=== PATIENT | male | born 1940 | race Caucasian/White ===

== ENCOUNTER → 2016-11-26 | Outpatient (CLI) | payer BC ==
[~2016-11-26] MED LIST: ACYC-57 PO; ASPI81TA28 PO; BENZ100C84 PO; CETI10TA84 PO; CRS/10 PO; DXM/4 PO; METO-479 PO; MISCCAP80 PO; PSYL55.43 PO
[2016-11-26 12:05] LABS: CHOLESTEROL/HDL RATIO 2.6
== END | disposition home or self-care (01) ==
LOC: C.LABSPEC 16:06
PROVIDERS: ATTEND Family Medicine
DX: E78.5 Hyperlipidemia, unspecified (principal); C90.00 Multiple myeloma not having achieved remission

== ENCOUNTER → 2017-08-23 | Outpatient (CLI) | payer BC ==
[~2017-08-23] MED LIST changes: -DXM/4 PO
--- NOTE | 2017-08-23 11:49 | DIAGNOSTIC IMAGING REPORT ---
CHEST 2 VIEWS ROUTINE CLINICAL HISTORY: 76 years-old Male presenting with C90.00 chest pain for 2 weeks with deep inspiration. TECHNIQUE: PA and lateral views of the chest were obtained. COMPARISON: 04/21/2016. FINDINGS: Atherosclerosis of aortic arch. Cardiac silhouette enlarged. Median sternotomy wires and prosthetic aortic valve noted with mediastinal surgical clips. Diffuse peripheral reticular lung markings. These are slightly more dense in the right upper lung. No large effusion or pneumothorax. Evidence of old left rib fractures, unchanged from prior. Osteopenia. Degenerative changes of the spine. Upper abdomen normal. IMPRESSION: 1. Chronic peripheral reticular lung markings likely indicate underlying chronic lung disease, including possible fibrosis. 2. Questionable superimposed infiltrate in the right upper lung versus progression of peripheral reticulation. Electronically signed by: Cesar Zamorano M.D. 08/23/2017 11:48 AM Dictated Date/Time: 08/23/2017 11:44 AM
== END | disposition home or self-care (01) ==
LOC: C.RAD 11:21
PROVIDERS: ATTEND Nurse Practitioner Family
DX: C90.00 Multiple myeloma not having achieved remission (principal)

== ENCOUNTER 2017-09-08 23:16 | Inpatient (IN) | payer BC, OTHER ==
[~2017-09-08] VITALS: Ht 180.3 cm; Wt 74.7 kg
[2017-09-08] MEDS ORDERED: SODIUM CHLORIDE 0.9% 1000ML 1,000 ML IV STA (23:51)
[2017-09-09 00:48] LABS: INR 1.1 (0.9-1.1); PTT PATIENT 23.5 SECONDS (21.0-31.0)
[2017-09-09 00:55] LABS: ALBUMIN 2.7 gm/dl (3.4-5.0); CALCIUM 8.2 mg/dl (8.5-10.1); CREATININE 0.87 mg/dl (0.60-1.40); POTASSIUM 3.3 mmol/L (3.5-5.1)
[2017-09-09 01:01] LABS: HEMATOCRIT 24.7 % (42-52); HEMOGLOBIN 8.2 g/dL (14.0-18.0); MEAN CELL VOLUME 98.8 fL (80-100); MEAN CORPUSCULAR HEMOGLOBIN 32.8 pg (25-34); MEAN CORPUSCULAR HGB CONC 33.2 g/dl (32-36); RED CELL DISTRIBUTION WIDTH CV 19.8 % (11.5-14.5); RED CELL DISTRIBUTION WIDTH SD 71.1 fL (36.4-46.3)
[2017-09-09 01:09] LABS: INFLUENZA A PCR Neg for Influ A (NEG); INFLUENZA B PCR Neg for Influ B (NEG)
[2017-09-09 01:11] LABS: PLATELET COUNT 17 K/uL (130-400)
[2017-09-09] MEDS ORDERED: CEFEPIME IV 2,000 MG in DEXTROSE 5% 100ML 100 ML IV STA (01:45)
[2017-09-09] MEDS ORDERED: POTASSIUM CHLORIDE 10 MEQ TABCR PO STA (02:05)
[2017-09-09] MEDS ORDERED: ZOLPIDEM TARTRATE 5 MG TAB PO PRN (02:15)
[2017-09-09] MEDS ORDERED: POLYETHYLENE (MIRALAX) 17 GM PACK PO PRN (02:15)
[2017-09-09] MEDS ORDERED: MAGNESIUM HYDROXIDE SUSP 30 ML UDC PO PRN (02:15)
[2017-09-09] MEDS ORDERED: ACETAMINOPHEN 325 MG TAB PO PRN (02:15)
[2017-09-09] MEDS ORDERED: ONDANSETRON INJ 2 MG/ML 2 ML VIAL IV PRN (02:15)
[2017-09-09] MEDS ORDERED: ALUMINUM/MAGNESIUM/SIMETH (MAALOX MAX) 30 ML UDC PO PRN (02:15)
[2017-09-09] MEDS ORDERED: CETIRIZINE HCL 10 MG TAB PO PRN (02:15)
[2017-09-09] MEDS ORDERED: MAGNESIUM SULFATE 1GM / D5W 1 GM BAG ONE (02:31)
[2017-09-09] MEDS: MAGNESIUM SULFATE 1GM / D5W 1 GM in PREMIXED IN D5W 100 ML IV SCH ×2 (02:34→04:01)
--- NOTE | 2017-09-09 02:47 | History and Physical ---
History & Physical Date & Time of Service: Sep 09, 2017 at 02:27 Chief Complaint: Fever, High Blood Pressure Primary Care Physician: Dustin Mendieta D.O. History of Present Illness Source: patient, spouse, hospital records 77 y/o M Hx multiple myeloma. He was previously on chemotherapy and last week began therapy with Darzalex. He presents with a fever and rigors which began earlier in the day. He does not have a cough, nausea, vomiting, diarrhea, dysuria or a headache. The pt's cell counts have been declining for several months. He recently required a platelet transfusion. Initial labs reveal pancytopenia with severe thrombocytopenia, moderate anemia and neutropenia. 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 [employer] - does not drink or smoke Smoking Status: Never Smoker Drug Use: none Marital Status: Housing status: lives with family Occupational Status: retired Immunizations History of Influenza Vaccine: Yes Influenza Vaccine Date: Aug 29, 2015 History of Tetanus Vaccine?: Yes Tetanus Immunization Date: Sep 08, 2011 History of Pneumococcal: Yes Pneumococcal Date: Jul 10, 2015 History of Hepatitis B Vaccine: No Allergies Coded Allergies: Dust (Verified Allergy, Intermediate, STUFFY NOSE,SNEEZING, 09/08/17) Home Medications Scheduled Acyclovir (Zovirax), 400 MG PO DAILY Metoprolol Succinate (Toprol Xl), 100 MG PO QPM Probiotic Product (Probiotic), 1 CAP PO Q2D Rosuvastatin Calcium (Crestor), 10 MG PO DAILY Scheduled PRN Cetirizine (Zyrtec), 10 MG PO DAILY PRN for ALLERGIC REACTION Review of Systems Constitutional: + fever, + chills, No sweats Eyes: No worsening of vision ENT: No hearing loss, No unusual epistaxis, No nasal symptoms Respiratory: No cough, No sputum, No wheezing Cardiovascular: No chest pain, No orthopnea, No PND Abdomen: No pain, No nausea, No vomiting Musculoskeletal: No joint pain Genitourinary - Male: No hematuria Neurologic: No memory loss, No paralysis, No weakness Endocrine: No fatigue Hematologic / Lymphatic: No abnormal bleeding/bruising Integumentary: No rash Allergic / Immunologic: No environmental allergies Physical Exam Vital Signs Date Time Temp Pulse Resp B/P (MAP) Pulse Ox O2 Delivery O2 Flow Rate FiO2 09/09/17 01:57 37.3 09/09/17 01:00 80 18 111/62 96 Room Air 09/09/17 00:30 87 24 112/62 97 Room Air 09/09/17 00:18 92 16 98/56 98 Room Air 09/09/17 00:18 98 Room Air 09/09/17 00:07 101 09/08/17 23:19 37.9 108 18 124/71 96 Room Air General Appearance: WD/WN, no apparent distress Head: normocephalic Eyes: normal inspection ENT: normal ENT inspection, pharynx normal Neck: supple, no JVD Respiratory/Chest: chest non-tender, normal breath sounds, + pertinent finding (Reduced air entry at L base) Cardiovascular: regular rate, rhythm, no edema, no gallop Abdomen/GI: normal bowel sounds, non tender, soft Back: normal inspection, no CVA tenderness Extremities/Musculoskelatal: normal inspection, no calf tenderness, normal capillary refill 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7 % Lymphocytes % (Manual) 9.3 % Neutrophils # (Manual) 2.27 1.4-6.5 K/uL Total Absolute Neutrophils 2.27 1.4-6.5 K/uL Lymphocytes # (Manual) 0.23 1.2-3.4 K/uL Total Absolute Lymphocytes 0.23 1.2-3.4 K/uL Platelet Estimate SIGNIFIC DECREASED Red Blood Cell Morphology Unremarkable Prothrombin Time 11.1 9.0-12.0 SECONDS Prothromb Time International Ratio 1.1 0.9-1.1 Activated Partial Thromboplast Time 23.5 21.0-31.0 SECONDS Partial Thromboplastin Ratio 0.9 Sodium Level 135 136-145 mmol/L Potassium Level 3.3 3.5-5.1 mmol/L Chloride Level 102 98-107 mmol/L Carbon Dioxide Level 27 21-32 mmol/L Anion Gap 6.0 3-11 mmol/L Blood Urea Nitrogen 21 7-18 mg/dl Creatinine 0.87 0.60-1.40 mg/dl Est Creatinine Clear Calc Drug Dose 74.6 ml/min Estimated GFR () 96.5 Estimated GFR (Non- 83.2 BUN/Creatinine Ratio 24.4 10-20 Random Glucose 99 70-99 mg/dl Calcium Level 8.2 8.5-10.1 mg/dl Magnesium Level 1.7 1.8-2.4 mg/dl Total Bilirubin 0.3 0.2-1 mg/dl Aspartate Amino Transf (AST/SGOT) 19 15-37 U/L Alanine Aminotransferase (ALT/SGPT) 50 12-78 U/L Alkaline Phosphatase 57 45-117 U/L Troponin I 0.018 0-0.045 ng/ml Total Protein 8.0 6.4-8.2 gm/dl Albumin 2.7 3.4-5.0 gm/dl Globulin 5.3 2.5-4.0 gm/dl Albumin/Globulin Ratio 0.5 0.9-2 Procalcitonin 6.52 0-0.5 ng/ml Thyroid Stimulating Hormone (TSH) 1.100 0.300-4.500 uIu/ml Urine Color YELLOW Urine Appearance CLEAR CLEAR Urine pH 6.0 4.5-7.5 Urine Specific [place] 1.027 1.000-1.030 Urine Protein 1+ NEG Urine Glucose (UA) NEG NEG Urine Ketones NEG NEG Urine Occult Blood TRACE NEG Urine Nitrite NEG NEG Urine Bilirubin NEG NEG Urine Urobilinogen NEG NEG Urine Leukocyte Esterase NEG NEG Urine WBC (Auto) 1-5 0-5 /hpf Urine RBC (Auto) 0-4 0-4 /hpf Urine Hyaline Casts (Auto) 1-5 0-5 /lpf Urine Epithelial Cells (Auto) 5-10 0-5 /lpf Urine Bacteria (Auto) NEG NEG Influenza Type A (RT-PCR) Neg for Influ A NEG Influenza Type B (RT-PCR) Neg for Influ B NEG Bedside Troponin I < 0.030 0-0.045 ng/ml Bedside Lactic Acid Venous 0.61 0.90-1.70 mmol/L Microbiology Results 09/09/17 Blood Culture, Received Pending 09/08/17 Blood Culture, Received Pending Diagnostic Radiology NO clear infiltrates on CXR - increased interstitial markings Impression Assessment and Plan 77 y/o M Hx multiple myeloma. He was previously on chemotherapy and last week began therapy with Darzalex. He presents with a fever and rigors which began earlier in the day. He does not have a cough, nausea, vomiting, diarrhea, dysuria or a headache. The pt's cell counts have been declining for several months. He recently required a platelet transfusion. Initial labs reveal pancytopenia with severe thrombocytopenia, moderate anemia and neutropenia. 1) Fever with neutropenia - currently receiving immune therapy - pt placed on Cefepime in ER. This is a reasonable first choice as there is no obvious source of infection and he does not have a port line. We will provide a dose of Vanc pending culture results however, as he has a history of valve replacement and a systolic murmur. 2) Pancytopenia - recently required a platelet transfusion. May require RBCs and platelets and has been consented. It is noted that special precautions are needed prior to transfusion for pt's receiving Darzalex. We have consulted oncology. A repeat CBC is pending for 8a. The pt's cell count was declining prior to initiation of Darzalex and Darzalex use itself can lead to pancytopenia. It is unclear if the medication will ultimately be helpful or if it now needs to be discontinued. Again, a hematology consult is pending. 3) HTN - cont Toprol 4) HPL - cont Crestor Full code - anticoagulation contraindicated currently Total time for this admit including review of labs, meds, imaging, records - discussion with pt and ER attending - 40 min Resuscitation Status VTE Prophylaxis Will order VTE Prophylaxis: No Reason for no VTE drug order: Contraindicated Reason no Mechanical VTE Order: Contraindicated
[2017-09-09] MEDS ORDERED: VANCOMYCIN CONSULT ACTIVE PRN (03:00)
[2017-09-09] MEDS: POTASSIUM CHLR 10 MEQ / WTR 10 MEQ in PREMIXED WATER 100 ML IV SCH ×2 (03:05→04:01)
[2017-09-09] MEDS ORDERED: VANCOMYCIN INJ 1,750 MG in SODIUM CHLORIDE 0.9% 500ML 500 ML IV STA (03:12)
--- NOTE | 2017-09-09 03:41 | EMERGENCY ROOM VISIT NOTE ---
History First contact with patient: 23:37 Chief Complaint: FEVER Stated Complaint: FEVER, HIGH BLOOD PRESSURE History of Present Illness The patient is a 77 year old male who presents to the Emergency Room with complaints of fever for the past day of 102. Patient has multiple myeloma and is currently receiving Darzalex IV. His first dose was 5 days ago. He received one on Saturday and on . His regimen will be once weekly. He required a blood transfusion 3 weeks ago. His platelets have been running low and last week they were 32,000. Patient complains of occasional cough. Patient denies chest pain, dyspnea, productive cough, abdominal pain, headache, sore throat, allergies, arthralgias, nausea, vomiting, diarrhea, urinary symptoms, back pain. He did receive the flu vaccine. No recent travel. Dr. Mullen is his oncologist. Review of Systems An 10 system review of systems was completed with positives and pertinent negatives listed in the HPI. Past Medical/Surgical History Medical Problems: (1) Aortic stenosis (2) Caridac stress test (3) Diarrhea (4) Diverticulosis Colon (W/O Ment Of Hemorrhage) (5) Esophagitis (6) Febrile illness, acute (7) Fleeting tachycardia (8) Hyperlipidemia Nec/Nos (9) Hypertension Nos (10) Multiple myeloma (11) Neutropenic fever (12) NSTEMI (non-ST elevated myocardial infarction) (13) Pancytopenia Family History FH: heart disease Social History Smoking Status: Never Smoker Alcohol Use: occasionally Drug Use: none Marital Status: Housing Status: lives with significant other Occupation Status: retired Current/Historical Medications Scheduled Acyclovir (Zovirax), 400 MG PO DAILY Metoprolol Succinate (Toprol Xl), 100 MG PO QPM Probiotic Product (Probiotic), 1 CAP PO Q2D Rosuvastatin Calcium (Crestor), 10 MG PO DAILY Scheduled PRN Cetirizine (Zyrtec), 10 MG PO DAILY PRN for ALLERGIC REACTION Physical Exam Vital Signs Date Time Temp Pulse Resp B/P (MAP) Pulse Ox O2 Delivery O2 Flow Rate FiO2 09/09/17 03:00 78 18 103/61 95 Room Air 09/09/17 02:30 90 17 123/72 97 Room Air 09/09/17 02:00 88 21 109/68 97 Room Air 09/09/17 01:57 37.3 09/09/17 01:30 89 20 112/67 96 Room Air 09/09/17 01:00 80 18 111/62 96 Room Air 09/09/17 00:30 87 24 112/62 97 Room Air 09/09/17 00:18 92 16 98/56 98 Room Air 09/09/17 00:18 98 Room Air 09/09/17 00:07 101 09/08/17 23:19 37.9 108 18 124/71 96 Room Air Physical Exam VITALS: Vitals are noted on the nurse's note and reviewed by myself. Vital signs low-grade fever. GENERAL: Pleasant male, in no acute distress, nondiaphoretic, well-developed well-nourished. SKIN: The skin was without rashes, erythema, edema, or bruising. There is no tenting of the skin. Capillary reflex less than 2 seconds. HEAD: Normocephalic atraumatic. EARS: External auditory canals clear, tympanic membranes pearly mitchell without erythema or effusion bilaterally. EYES: Pupils equal round and reactive to light and accommodation. Conjunctivae without injection, sclerae without icterus. Extraocular movements intact. NOSE: Patent, turbinates without inflammation or discharge. No sinus tenderness. MOUTH: Mucous membranes mildly dry. Pharynx without erythema or exudate. Uvula midline. Airway patent. Tongue does not deviate. NECK: Supple without nuchal rigidity. No lymphadenopathy. No thyromegaly. Cervical spine is nontender. No JVD. HEART: Regular rate and rhythm 2/6 systolic murmur LUNGS: Clear to auscultation bilaterally without wheezes, rales or rhonchi. No retractions or accessory muscle use. ABDOMEN: Positive bowel sounds x 4. Normal tympanic percussion. Soft, nontender, without masses or organomegaly. Parra sign negative. No guarding or rebound tenderness. No CVA tenderness MUSCULOSKELETAL: No muscle atrophy, erythema, or edema noted. NEURO: Patient was alert and oriented to person place and time. Normal sensation to light and sharp touch. No focal neurological deficits. Medical Decision & Procedures Laboratory Results 09/08/17 23:58 Red Blood Count 2.50, Mean Corpuscular Volume 98.8, Mean Corpuscular Hemoglobin 32.8, Mean Corpuscular Hemoglobin Concent 33.2 09/08/17 23:58 Test 09/08/17 23:58 09/09/17 00:04 09/09/17 00:11 09/09/17 00:12 White Blood Count 2.50 K/uL (4.8-10.8) Red Blood Count 2.50 M/uL (4.7-6.1) Hemoglobin 8.2 g/dL (14.0-18.0) Hematocrit 24.7 % (42-52) Mean Corpuscular Volume 98.8 fL (80-100) Mean Corpuscular Hemoglobin 32.8 pg (25-34) Mean Corpuscular Hemoglobin Concent 33.2 g/dl (32-36) Platelet Count 17 K/uL (130-400) RDW Standard Deviation 71.1 fL (36.4-46.3) RDW Coefficient of Variation 19.8 % (11.5-14.5) Neutrophils % (Manual) 90.7 % Lymphocytes % (Manual) 9.3 % Neutrophils # (Manual) 2.27 K/uL (1.4-6.5) Total Absolute Neutrophils 2.27 K/uL (1.4-6.5) Lymphocytes # (Manual) 0.23 K/uL (1.2-3.4) Total Absolute Lymphocytes 0.23 K/uL (1.2-3.4) Platelet Estimate SIGNIFIC DECREASED Red Blood Cell Morphology Unremarkable Prothrombin Time 11.1 SECONDS (9.0-12.0) Prothromb Time International Ratio 1.1 (0.9-1.1) Activated Partial Thromboplast Time 23.5 SECONDS (21.0-31.0) Partial Thromboplastin Ratio 0.9 Anion Gap 6.0 mmol/L (3-11) Est Creatinine Clear Calc Drug Dose 74.6 ml/min Estimated GFR () 96.5 Estimated GFR (Non- 83.2 BUN/Creatinine Ratio 24.4 (10-20) Calcium Level 8.2 mg/dl (8.5-10.1) Magnesium Level 1.7 mg/dl (1.8-2.4) Total Bilirubin 0.3 mg/dl (0.2-1) Aspartate Amino Transf (AST/SGOT) 19 U/L (15-37) Alanine Aminotransferase (ALT/SGPT) 50 U/L (12-78) Alkaline Phosphatase 57 U/L (45-117) Troponin I 0.018 ng/ml (0-0.045) Total Protein 8.0 gm/dl (6.4-8.2) Albumin 2.7 gm/dl (3.4-5.0) Globulin 5.3 gm/dl (2.5-4.0) Albumin/Globulin Ratio 0.5 (0.9-2) Procalcitonin 6.52 ng/ml (0-0.5) Thyroid Stimulating Hormone (TSH) 1.100 uIu/ml (0.300-4.500) Urine Color YELLOW Urine Appearance CLEAR (CLEAR) Urine pH 6.0 (4.5-7.5) Urine Specific [place] 1.027 (1.000-1.030) Urine Protein 1+ (NEG) Urine Glucose (UA) NEG (NEG) Urine Ketones NEG (NEG) Urine Occult Blood TRACE (NEG) Urine Nitrite NEG (NEG) Urine Bilirubin NEG (NEG) Urine Urobilinogen NEG (NEG) Urine Leukocyte Esterase NEG (NEG) Urine WBC (Auto) 1-5 /hpf (0-5) Urine RBC (Auto) 0-4 /hpf (0-4) Urine Hyaline Casts (Auto) 1-5 /lpf (0-5) Urine Epithelial Cells (Auto) 5-10 /lpf (0-5) Urine Bacteria (Auto) NEG (NEG) Influenza Type A (RT-PCR) Neg for Influ A (NEG) Influenza Type B (RT-PCR) Neg for Influ B (NEG) Bedside Troponin I < 0.030 ng/ml (0-0.045) Bedside Lactic Acid Venous 0.61 mmol/L (0.90-1.70) Medications Administered Medications (Trade) Dose Ordered Sig/Cristian Route Start Time Stop Time Status Last Admin Dose Admin Sodium Chloride 1,000 ml @ 999 mls/hr Q1H1M STAT IV 09/08/17 23:51 09/09/17 00:51 DC 09/09/17 00:18 999 MLS/HR Cefepime HCl 2000 mg/Dextrose 122 ml @ 200 mls/hr NOW STAT IV 09/09/17 01:45 09/09/17 02:21 DC 09/09/17 02:11 200 MLS/HR Potassium Chloride 10 meq/ Prmx 100 ml @ 100 mls/hr Q1H IV 09/09/17 03:00 09/09/17 04:59 3/5/18 03:05 100 MLS/HR Potassium Chloride (Klor-Con M10) 20 meq NOW STAT PO 09/09/17 02:05 09/09/17 02:24 DC 09/09/17 02:33 20 MEQ Magnesium Sulfate 1 gm/Prmx 100 ml @ 100 mls/hr Q1H IV 09/09/17 02:30 09/09/17 04:29 09/09/17 02:34 100 MLS/HR ED Course Prior records/ancillary studies reviewed. Triage Nursing notes reviewed. Additional history obtained from family. The patient's history was concerning for fever. Differential diagnosis: Etiologies such as neutropenic fever, viral syndrome, otitis, pharyngitis, pneumonia, influenza, meningitis, urinary tract infection, sepsis, bacteremia, as well as others were entertained. Physical examination: Patient is alert, oriented tolerating fluids ER treatment provided: IV fluids, cefepime, neutropenic precautions On reassessment the patient felt better. Diagnostics interpreted by me: ECG: Normal sinus, normal intervals, minimal ST depression in the lateral leads , incomplete right bundle branch block, rate of 96, EKG compared to prior EKG with no acute changes noted. Impression normal sinus rhythm with an incomplete right bundle branch block with unchanged minimal ST depression in lateral leads interpreted by myself The labs revealed pancytopenic. Lower platelets and H&H from chart review Negative lactic acid Elevated pro-calcitonin level, blood cultures pending Negative influenza Imaging studies: Chest x-ray with no acute consolidation, pneumothorax or free of my interpretation Consultation: A consultation was placed with Dr. Lombardo, oncology. The case was discussed and diagnostics were reviewed. He recommends antibiotics and admission Pending blood cultures. The hospitalist was consulted, Dr. Sylvester and will evaluate the patient. The patient was evaluated in the ER for further treatment. This appears to be consistent with fever in a cancer patient. Patient was not neutropenic. His blood counts were all lower than baseline though. No obvious source of infection. Blood cultures pending. He had an elevated pro- calcitonin. He had a negative lactic acid. He was started on antibiotics and hydrated as above. He took Tylenol just prior to arrival.. By the evaluation outlined above emergent etiologies such as otitis, pharyngitis, pneumonia, meningitis, urinary tract infection, as well as others were deemed relatively unlikely. The pt informed about the findings as listed above. All questions were answered and pleased with the treatment. Case reviewed with my attending The chart was completed utilizing [employer] Speech voice recognition software. Grammatical errors, random word insertions, pronoun errors, and incomplete sentences are an occassional consequence of this system due to software limitations, ambient noise, and hardware issues. Any formal questions or concerns about the content, text, or information contained within the body of this dictation should be directly addressed to the physician lpn or medical assistant for clarification. Medical Decision As above Medication Reconcilliation Current Medication List: was personally reviewed by me Blood Pressure Screening Patient's blood pressure: Normal blood pressure Impression Primary Impression: Fever Additional Impression: Pancytopenia Departure Information Dispostion Being Evaluated By Hospitalist Condition FAIR Referrals Dustin Mendieta D.OYoni (PCP) Patient Instructions My [facility] Problem Qualifiers Primary Impression: Fever Fever type: unspecified Qualified Codes: R50.9 - Fever, unspecified
[2017-09-09 04:38] VITALS: BP 136/73; PULSE 85; TEMP 37; Ht 180.3 cm; Wt 74.7 kg
[2017-09-09 05:01] VITALS: O2SAT 97
[2017-09-09] MEDS ORDERED: CEFEPIME CONSULT ACTIVE PRN (05:15)
--- NOTE | 2017-09-09 06:37 | DIAGNOSTIC IMAGING REPORT ---
CHEST ONE VIEW PORTABLE CLINICAL HISTORY: Sepsis COMPARISON STUDY: August 23, 2017 FINDINGS: There are postsurgical changes of a midline sternotomy. The cardiac and mediastinal contours remain stable. There are old left-sided rib deformities. Bilateral reticulonodular opacities remain similar, and are suggestive of underlying interstitial lung disease. There are no pleural effusions.[ IMPRESSION: Underlying interstitial lung disease similar to the preceding study. No acute findings Electronically signed by: Christopher Dias M.D. 09/09/2017 6:35 AM Dictated Date/Time: 09/09/2017 6:34 AM
[2017-09-09 08:12] VITALS: BP 135/79; PULSE 93; TEMP 37.4; O2SAT 97
[2017-09-09 08:30] VITALS: O2SAT 97
[2017-09-09 08:32] LABS: HEMATOCRIT 24.5 % (42-52); HEMOGLOBIN 8.1 g/dL (14.0-18.0); MEAN CELL VOLUME 99.6 fL (80-100); MEAN CORPUSCULAR HEMOGLOBIN 32.9 pg (25-34); MEAN CORPUSCULAR HGB CONC 33.1 g/dl (32-36); NUCLEATED RED BLOOD CELL ABS 0.02 K/uL (0-0); RED CELL DISTRIBUTION WIDTH CV 19.9 % (11.5-14.5); RED CELL DISTRIBUTION WIDTH SD 72.3 fL (36.4-46.3); WHITE BLOOD COUNT 2.17 K/uL (4.8-10.8)
[2017-09-09 08:43] LABS: PLATELET COUNT 17 K/uL (130-400)
[2017-09-09 08:44] LABS: CREATININE 0.74 mg/dl (0.60-1.40)
[2017-09-09] MEDS ORDERED: NURSING VERBAL MED ORDER ONE (08:45)
[2017-09-09] MEDS ORDERED: ACYCLOVIR 200 MG CAP PO SCH (09:00)
[2017-09-09] MEDS ORDERED: ROSUVASTATIN CALCIUM 10 MG TAB PO SCH (09:00)
[2017-09-09] MEDS ORDERED: METOPROLOL SUCC 50MG EXT REL TAB PO SCH ×2 (09:00→21:00)
--- NOTE | 2017-09-09 09:02 | ONCOLOGY CONSULTATION ---
DATE OF CONSULTATION: 09/09/2017 REASON FOR CONSULTATION: Fever. HISTORY OF PRESENT ILLNESS: Mr. Chan is a pleasant 77-year-old gentleman well known to [facility], currently under Dr. 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 Mr. Chan was recently started on a daratumumab, which is a new novel monoclonal antibody for refractory multiple myeloma, last received on and Saturday of last week. He tolerated the infusion relatively well here. Overnight prior to admission, he developed a fever of 102.5 and proceeded directly to the Emergency Room. There were no other constituted symptoms or clinical findings. Discussed the case with the ER physician because he was neutropenic, thought it was best to wilcox culture him and place him on empiric cefepime. He is feeling much better and fever has abated. I suspect his symptoms may be related to the Daratumumab. PAST MEDICAL HISTORY: Again, significant for multiple myeloma, hypertension, hyperlipidemia and aortic stenosis. HOME MEDICATIONS: Include acyclovir 400 mg p.o. q. daily, metoprolol 100 mg p.o. q.p.m., probiotic 1 capsule p.o. every other day and Crestor 10 mg p.o. q. daily. ALLERGIES: DUST. SOCIAL HISTORY: The patient is retired, and lives with his . Nonsmoker and nondrinker. FAMILY HISTORY: Significant for heart disease. REVIEW OF SYSTEMS: CONSTITUTIONAL: Most notably for a low grade fever. No chills or sweats. His appetite is robust. SKIN: No rashes or lesions. No history of dermatoses. HEENT: Negative for headaches, lightheadedness or dizziness. No acute visual or hearing deficits. No sinus symptoms, sore throat or dysphagia. LYMPHATICS: No history of lymphadenopathy. CARDIAC: No current angina or palpitations. PULMONARY: He is not short of breath, dyspneic or orthopneic. No cough or hemoptysis. GASTROINTESTINAL: Negative for abdominal pain, nausea, vomiting, diarrhea or constipation, hematochezia or melenic stools. GENITOURINARY: No hematuria, dysuria, or urinary incontinence. PSYCHIATRIC: Negative for anxiety, depression or psychoses by history. ENDOCRINE: Negative for diabetes or thyroid disease. NEUROLOGIC: Negative for seizure, stroke, or migraine headache. HEMATOLOGIC: Positive for cytopenias associated with treatment and his disease. PHYSICAL EXAMINATION: GENERAL: Very pleasant 77-year-old gentleman in no acute distress. VITAL SIGNS: Temperature 37.4, pulse 93, respirations 18, and blood pressure 135/79. SKIN: Warm, dry, and noncyanotic without petechia, rash or ecchymosis. HEENT: Head is atraumatic and normocephalic. Eyes: PERRLA and EOMI. Sclerae nonicteric. No conjunctival injection. Nares patent without rhinorrhea or discharge. Throat is clear. Tongue is midline. Mucous membranes are moist. NECK: Supple without JVD or thyromegaly. LYMPHATICS: No cervical, supraclavicular, axillary or inguinal palpable nodes. HEART: Regular rate and rhythm. No clicks, rubs, murmurs or gallops. LUNGS: Clear to auscultation bilaterally. ABDOMEN: Soft, nontender, and nondistended without palpable hepatosplenomegaly. EXTREMITIES: No calf tenderness or swelling. No clubbing, cyanosis or edema. NEUROLOGICALLY: He is awake, alert and oriented x3. Cranial nerves II-XII are intact. No gross motor or sensory deficits are noted. LABORATORY DATA: On admission, WBC count 2500, hemoglobin 8.2, and platelet count 17,000. Sodium 135, potassium 3.3, chloride 102, carbon dioxide 27, BUN 21, and creatinine 0.87. Albumin slightly decreased to 2.7. Magnesium decreased to 1.7. IMPRESSION: 1. Fever. 2. Cytopenias attributable to treatment. 3. Hypoalbuminemia. 4. Electrolyte dysfunction. PLAN: I had the pleasure of meeting Mr. Chan and his at bedside today. Apparently, he developed a fever of 102 overnight. He presented to the [facility] Emergency Room and I personally spoke to the ER physician. He presented with no other constitutive symptoms and upon review of adverse effects associated with daratumumab, it would appear cytopenias and fever are all common adverse reactions associated with this drug. Therefore, would proceed with correcting his electrolyte abnormalities and if cultures are negative, discharge him home as he will follow up with Dr. Mullen later on this week to resume treatment. His platelet count is tenuous. If he is discharged in the next 24 hours, would have a CBC performed in the next day or two and transfuse single donor platelets as appropriate. Perhaps he may require a couple units of packed RBCs as well. I have nothing further to add at this juncture. Thank you for assisting us in the care of this very pleasant gentleman. SANDEE
--- NOTE | 2017-09-09 09:04 | Pharmacy Progress Note ---
Pharmacy Antibiotic Consult Date of Service: Sep 09, 2017. Pharmacy Dosing Scope Pharmacy is consulted to initiate vancomycin and cefepime IV dosing therapy, order appropriate labs and adjust drug dose/frequency. Subjective The patient is a 77 year old male admitted on Sep 09, 2017 at 02:15 with febrile neutropenia. History of multiple myeloma, chemotherapy. Objective Height (Feet): 5 Height (Inches): 11.00 Weight (Kilograms): 74.700 Lab Results (24hrs): Test 09/08/17 23:58 09/09/17 00:04 09/09/17 00:11 09/09/17 00:12 White Blood Count 2.50 K/uL (4.8-10.8) Red Blood Count 2.50 M/uL (4.7-6.1) Hemoglobin 8.2 g/dL (14.0-18.0) Hematocrit 24.7 % (42-52) Mean Corpuscular Volume 98.8 fL (80-100) Mean Corpuscular Hemoglobin 32.8 pg (25-34) Mean Corpuscular Hemoglobin Concent 33.2 g/dl (32-36) Platelet Count 17 K/uL (130-400) RDW Standard Deviation 71.1 fL (36.4-46.3) RDW Coefficient of Variation 19.8 % (11.5-14.5) Neutrophils % (Manual) 90.7 % Lymphocytes % (Manual) 9.3 % Neutrophils # (Manual) 2.27 K/uL (1.4-6.5) Total Absolute Neutrophils 2.27 K/uL (1.4-6.5) Lymphocytes # (Manual) 0.23 K/uL (1.2-3.4) Total Absolute Lymphocytes 0.23 K/uL (1.2-3.4) Platelet Estimate SIGNIFIC DECREASED Red Blood Cell Morphology Unremarkable Prothrombin Time 11.1 SECONDS (9.0-12.0) Prothromb Time International Ratio 1.1 (0.9-1.1) Activated Partial Thromboplast Time 23.5 SECONDS (21.0-31.0) Partial Thromboplastin Ratio 0.9 Sodium Level 135 mmol/L (136-145) Potassium Level 3.3 mmol/L (3.5-5.1) Chloride Level 102 mmol/L (98-107) Carbon Dioxide Level 27 mmol/L (21-32) Anion Gap 6.0 mmol/L (3-11) Blood Urea Nitrogen 21 mg/dl (7-18) Creatinine 0.87 mg/dl (0.60-1.40) Est Creatinine Clear Calc Drug Dose 74.6 ml/min Estimated GFR () 96.5 Estimated GFR (Non- 83.2 BUN/Creatinine Ratio 24.4 (10-20) Random Glucose 99 mg/dl (70-99) Calcium Level 8.2 mg/dl (8.5-10.1) Magnesium Level 1.7 mg/dl (1.8-2.4) Total Bilirubin 0.3 mg/dl (0.2-1) Aspartate Amino Transf (AST/SGOT) 19 U/L (15-37) Alanine Aminotransferase (ALT/SGPT) 50 U/L (12-78) Alkaline Phosphatase 57 U/L (45-117) Troponin I 0.018 ng/ml (0-0.045) Total Protein 8.0 gm/dl (6.4-8.2) Albumin 2.7 gm/dl (3.4-5.0) Globulin 5.3 gm/dl (2.5-4.0) Albumin/Globulin Ratio 0.5 (0.9-2) Procalcitonin 6.52 ng/ml (0-0.5) Thyroid Stimulating Hormone (TSH) 1.100 uIu/ml (0.300-4.500) Urine Color YELLOW Urine Appearance CLEAR (CLEAR) Urine pH 6.0 (4.5-7.5) Urine Specific [place] 1.027 (1.000-1.030) Urine Protein 1+ (NEG) Urine Glucose (UA) NEG (NEG) Urine Ketones NEG (NEG) Urine Occult Blood TRACE (NEG) Urine Nitrite NEG (NEG) Urine Bilirubin NEG (NEG) Urine Urobilinogen NEG (NEG) Urine Leukocyte Esterase NEG (NEG) Urine WBC (Auto) 1-5 /hpf (0-5) Urine RBC (Auto) 0-4 /hpf (0-4) Urine Hyaline Casts (Auto) 1-5 /lpf (0-5) Urine Epithelial Cells (Auto) 5-10 /lpf (0-5) Urine Bacteria (Auto) NEG (NEG) Influenza Type A (RT-PCR) Neg for Influ A (NEG) Influenza Type B (RT-PCR) Neg for Influ B (NEG) Bedside Troponin I < 0.030 ng/ml (0-0.045) Bedside Lactic Acid Venous 0.61 mmol/L (0.90-1.70) Test 09/09/17 08:01 White Blood Count 2.17 K/uL (4.8-10.8) Red Blood Count 2.46 M/uL (4.7-6.1) Hemoglobin 8.1 g/dL (14.0-18.0) Hematocrit 24.5 % (42-52) Mean Corpuscular Volume 99.6 fL (80-100) Mean Corpuscular Hemoglobin 32.9 pg (25-34) Mean Corpuscular Hemoglobin Concent 33.1 g/dl (32-36) RDW Standard Deviation 72.3 fL (36.4-46.3) RDW Coefficient of Variation 19.9 % (11.5-14.5) Platelet Count 17 K/uL (130-400) Nucleated RBC Absolute Count (auto) 0.02 K/uL (0-0) Nucleated Red Blood Cells % 0.9 % Platelet Estimate SIGNIFIC DECREASED Sodium Level 135 mmol/L (136-145) Potassium Level 4.0 mmol/L (3.5-5.1) Chloride Level 104 mmol/L (98-107) Carbon Dioxide Level 28 mmol/L (21-32) Anion Gap 3.0 mmol/L (3-11) Blood Urea Nitrogen 16 mg/dl (7-18) Creatinine 0.74 mg/dl (0.60-1.40) Est Creatinine Clear Calc Drug Dose 88.3 ml/min Estimated GFR () 103.1 Estimated GFR (Non- 89.0 BUN/Creatinine Ratio 21.0 (10-20) Random Glucose 90 mg/dl (70-99) Calcium Level 8.0 mg/dl (8.5-10.1) Magnesium Level 2.1 mg/dl (1.8-2.4) Micro Results: 09/09 blood x2 pending Recent Pertinent Medications Item Value Date Time Vancomycin HCl 275 ml @ 125 mls/hr 09/09/17 1800 1250 mg/Sodium Q14H/IV Chloride Cefepime HCl 2000 20 ml @ 5 mls/min 09/09/17 1000 mg/Syringe Q8H/IV Acyclovir 400 mg 09/09/17 0900 (Zovirax Cap) DAILY/PO 09/09/17 0831 Vancomycin HCl 535 ml @ 200 mls/hr 09/09/17 0312 1750 mg/Sodium NOW STAT/IV 09/09/17 0519 Chloride Cefepime HCl 2000 122 ml @ 200 mls/hr 09/09/17 0145 mg/Dextrose NOW STAT/IV 09/09/17 0211 Assessment & Plan Loading dose: vancomycin 1750 mg IV X 1 dose (~23 mg/kg) then will dose fairly aggressively for neutropenia: vancomycin 1250 mg IV every 14 hours. Goal peak level estimate: between 30-40 mcg/mL. Goal trough level estimate: between 15-20 mcg/mL. Trough has been ordered for: 09/10/17 before 2200 dose. Cefepime 2 Gm V q8h, no adjustment needed for CrCl greater than 60 ml/min. Pharmacy will continue to follow and will adjust dose/frequency as necessary. Thank you
[2017-09-09] MEDS ORDERED: CEFEPIME IV 2,000 MG in SYRINGE 7.5 ML IV SCH (10:00)
--- NOTE | 2017-09-09 11:11 | Discharge Instructions ---
Discharge Instructions Date of Service Sep 09, 2017. Admission Reason for Admission: Neutropenic Fever, Pancytopenia, Multiple Myeloma Discharge Discharge Diagnosis / Problem: Neutropenic fever, pancytopenia Discharge Goals Goal(s): Improve function, Diagnostic testing (follow blood counts) Activity Recommendations Activity Limitations: resume your previous activity . Instructions / Follow-Up Instructions / Follow-Up Medications: no changes Leukopenia (low WBC): not truly neutropenic, ANC was 2.27 fevers resolved blood cultures still pending, will notify you if anything grows no pneumonia on chest x-ray and urine clean Low platelets: no bruising, no bleeding you need to follow this closely, will give you scripts for tomorrow and Saturday morning results to Dr. Mullen, he will give further instructions, you may need platelet transfusion in near future Anemia: Hb was 8.2 yesterday, 8.1 today, certainly a result of both multiple myeloma and possibly treatment follow closely over next two days, may require red blood cell transfusion in near future FOLLOW UP - Dr. Mullen's office on Saturday Current Hospital Diet Patient's current hospital diet: Regular Diet Discharge Diet Recommended Diet: Regular Diet Pending Studies Studies pending at discharge: yes List of pending studies: blood cultures Medical Emergencies . Who to Call and When: Medical Emergencies: If at any time you feel your situation is an emergency, please call 911 immediately. . Non-Emergent Contact Non-Emergency issues call your: Primary Care Provider, Oncologist Call Non-Emergent contact if: you have a fever, you have any medication questions . . "Provider Documentation" section prepared by Brady Escobar. . [place] Drug Monitoring Program Search Results: no issues identified
[2017-09-09 11:33] VITALS: BP 100/62; PULSE 77; TEMP 37.7; O2SAT 96
[2017-09-09 12:12] VITALS: BP 100/62; PULSE 77; TEMP 37.7; O2SAT 96
[2017-09-09] MEDS ORDERED: VANCOMYCIN INJ 1,250 MG in SODIUM CHLORIDE 0.9% 250ML 250 ML IV SCH (18:00)
[2017-09-10] MEDS ORDERED: VANCOMYCIN TROUGH ONE (21:30)
--- NOTE | 2017-09-11 08:22 | Discharge Summary ---
Discharge Summary Date of Service Sep 09, 2017. Discharge Summary Admission Date: Sep 09, 2017 at 02:15 Discharge Date: Sep 09, 2017 Principal Diagnosis: Pancytopenia, no neutropenia, with fever Problems/Secondary Diagnoses: Thrombocytopenia Anemia Multiple Myeloma Immunizations: Have You Had Influenza Vaccine: Yes Influenza Vaccine Date: Aug 29, 2015 History of Tetanus Vaccine?: Yes Tetanus Immunization Date: Sep 08, 2011 History of Pneumococcal: Yes Pneumococcal Date: Jul 10, 2015 History of Hepatitis B Vaccine: No Procedures: none Consultations: Oncology Medication Reconciliation Continued Medications: Acyclovir (Zovirax) 200 Mg Cap 400 MG PO DAILY, CAP Cetirizine (Zyrtec) 10 Mg Tab 10 MG PO DAILY PRN for ALLERGIC REACTION, TAB Metoprolol Succinate (Toprol Xl) 100 Mg Tab 100 MG PO QPM Probiotic Product (Probiotic) 1 Cap Cap 1 CAP PO Q2D Rosuvastatin Calcium (Crestor) 10 Mg Tab 10 MG PO DAILY, TAB Discharge Exam Patient feeling well, no fevers, eating well, breathing stable. patient wanted to go home and said he would follow up for labs with oncology. Patient's at the bedside, she agreed with this plan. Review of Systems: Constitutional: + fever (prior to admission), No chills, No sweats, No weight loss, No weakness, No fatigue, No problem reported Eyes: No worsening of vision, No eye pain, No redness, No discharge, No diplopia, No problem reported ENT: No hearing loss, No unusual epistaxis, No nasal symptoms, No sore throat, No tinnitus, No dental problems, No trouble swallowing, No problem reported Respiratory: No cough, No sputum, No wheezing, No shortness of breath, No dyspnea on exertion, No dyspnea at rest, No hemoptysis, No problem reported Cardiovascular: No chest pain, No orthopnea, No PND, No edema, No claudication, No palpitations, No problem reported Abdomen: No pain, No nausea, No vomiting, No diarrhea, No constipation, No GI bleeding, No problem reported Musculoskeletal: No joint pain, No muscle pain, No swelling, No calf pain, No problem reported Genitourinary - Male: No hematuria, No dysuria, No urinary frequency, No urinary urgency Neurologic: No memory loss, No paralysis, No weakness, No numbness/tingling , No vertigo, No balance problems, No problem reported Psychiatric: No depression symptoms, No anhedonism, No anxiety, No insomnia , No substance abuse, No problem reported Endocrine: No fatigue, No excessive thirst, No excessive urination, No problem reported Hematologic / Lymphatic: No abnormal bleeding/bruising, No clotting problems , No swollen lymph nodes, No night sweats, No problem reported Integumentary: No rash, No itch, No new/changing skin lesions, No color change, No bleeding, No problem reported Physical Exam: General Appearance: WD/WN, no apparent distress Eyes: normal inspection, EOMI, sclerae normal ENT: normal ENT inspection, hearing grossly normal, pharynx normal Neck: supple, no adenopathy, no JVD, trachea midline Respiratory/Chest: chest non-tender, lungs clear, normal breath sounds, no respiratory distress, no accessory muscle use Cardiovascular: regular rate, rhythm, no edema, no gallop, no JVD, no murmur , normal peripheral pulses Abdomen / GI: normal bowel sounds, non tender, soft, no organomegaly Extremities: normal inspection, no calf tenderness, normal capillary refill , no pedal edema, normal range of motion, pelvis stable Neurologic/Psychiatric: company dancer II-XII nml as tested, no motor/sensory deficits , alert, normal mood/affect, normal reflexes, oriented x 3 Skin: normal color, warm/dry, no rash Lymphatic: no adenopathy Hospital Course 1) Fever with leukopenia, not neutropenia - afebrile since admission, given dose of Cefepime on admission blood cultures showed no growth, CXR clear, urine without signs of infection WBC stable the following day patient wanted to go home and follow up with oncology discussed that I would call him if cultures became positive 2) Significant anemia and thrombocytopenia due to combination of multiple myeloma as well as chemotherapy platelets 17k both on admission and the next day Hb stable at 8.1 patient could receive outpatient transfusions if necessary, did not want to stay in hospital to follow counts gave him scripts for lab work on 09/10 and 09/[address] Mullen oncology would arrange for transfusion if necessary 3) HTN - cont Toprol, BP controlled 4) HPL - cont Crestor d/c to home with close follow up with oncology on 09/11 Total Time Spent: Greater than 30 minutes This includes examination of the patient, discharge planning, medication reconciliation, and communication with other providers. Discharge Instructions Please refer to the electronic Patient Visit Report (Discharge Instructions) for additional information. Follow-Up Dr. Mullen on 09/11 Additional Copies To Nba Mullen D.O.; Dustin Mendieta D.O.
== END 2017-09-09 13:30 | disposition home or self-care (01) | DRG 809 ==
LOC: C.EDB 23:19 → C.MED 09-09 02:15 → ENRESERV 09-09 03:13
PROVIDERS: ADMIT Internal Medicine; ATTEND Internal Medicine
DX: D61.810 Antineoplastic chemotherapy induced pancytopenia (principal); C90.00 Multiple myeloma not having achieved remission; I10 Essential (primary) hypertension; E78.5 Hyperlipidemia, unspecified; I25.2 Old myocardial infarction; Z95.2 Presence of prosthetic heart valve; E88.09 Other disorders of plasma-protein metabolism, not elsewhere classified

== ENCOUNTER → 2017-09-17 | Outpatient (CLI) | payer BC, OTHER ==
[~2017-09-17] MED LIST changes: -ASPI81TA28 PO; -BENZ100C84 PO; -PSYL55.43 PO
--- NOTE | 2017-09-17 11:07 | DIAGNOSTIC IMAGING REPORT ---
RIGHT FEMUR 3 VIEWS CLINICAL HISTORY: Right leg pain. Multiple myeloma. FINDINGS: AP, frog-leg, and lateral views of the right femur are obtained. No prior studies are available for comparison at the time of dictation. The skeletal structures are heterogeneously osteopenic. There is no radiographic evidence of right femoral fracture. No osteolytic lesion is clearly identified. Moderate arthritic change and joint space narrowing is identified in the right hip. Mild arthritic change is seen in the right knee. The overlying soft tissues are within normal limits. There is advanced atherosclerotic calcification of the right femoral artery. IMPRESSION: Osteopenia and arthritic change as above. No acute bony abnormality is seen involving the right femur. Electronically signed by: Warren Islas M.D. 09/17/2017 11:06 AM Dictated Date/Time: 09/17/2017 11:04 AM
--- NOTE | 2017-09-17 11:08 | DIAGNOSTIC IMAGING REPORT ---
LEFT FEMUR 3 VIEWS CLINICAL HISTORY: Left leg pain. Multiple myeloma. FINDINGS: AP, frog-leg, and lateral views of the left femur are obtained correlated with radiographs of the left hip dated 06/14/2015. The skeletal structures are heterogeneously osteopenic. There is no radiographic evidence of left femoral fracture. No osteolytic lesion is clearly identified. Moderate arthritic change and joint space narrowing is identified in the left hip. Mild arthritic change is seen in the left knee. The overlying soft tissues are within normal limits. There is advanced atherosclerotic calcification of the left femoral artery. Pelvic phleboliths are noted. Surgical clips are present in the upper calf. IMPRESSION: Osteopenia and arthritic change as above. No acute bony abnormality is seen involving the left femur. Electronically signed by: Warren Islas M.D. 09/17/2017 11:07 AM Dictated Date/Time: 09/17/2017 11:06 AM
--- NOTE | 2017-09-17 11:30 | DIAGNOSTIC IMAGING REPORT ---
LUMBAR SPINE 5 VIEWS CLINICAL HISTORY: Multiple myeloma. Chronic low back pain. Findings: Five views of the lumbar spine are compared to study dated 10/17/2015. The skeletal structures are heterogeneously osteopenic. There is no radiographic evidence of fracture or malalignment involving the lumbar spine. Vertebral body height and alignment are maintained. The transverse and spinous processes appear intact. There is no evidence of spondylolysis. Small anterior osteophytes are seen throughout. No osteolytic lesion is clearly seen. Multilevel facet arthropathy is identified, greatest in the lower lumbar region. Moderate disc space narrowing is seen throughout. The bony pelvis is intact as imaged. Arthritic change is seen in the hips. Moderate constipation is observed. No bowel obstruction is seen. IMPRESSION: 1. No acute bony abnormality is seen involving the lumbosacral spine. 2. Osteopenia and multilevel spondylosis as above. 3. No osteolytic lesion is clearly identified. Dictated: 09/17/2017 11:02 AM Transcribed: 09/17/2017 11:29 AM [email or web address]_Vi Electronically signed by: Warren Islas M.D. 09/17/2017 11:44 AM Dictated Date/Time: 09/17/2017 11:02 AM
== END | disposition home or self-care (01) ==
LOC: C.RAD 10:16
PROVIDERS: ATTEND Internal Medicine Hematology & Oncology
DX: C90.00 Multiple myeloma not having achieved remission (principal); M85.89 Other specified disorders of bone density and structure, multiple sites; M16.0 Bilateral primary osteoarthritis of hip; M47.816 Spondylosis without myelopathy or radiculopathy, lumbar region

== ENCOUNTER → 2017-10-11 | Outpatient (CLI) | payer BC ==
[~2017-10-11] MED LIST changes: +GADAVIST IV PRN; +OXYC15TA89 PO
--- NOTE | 2017-10-11 19:05 | DIAGNOSTIC IMAGING REPORT ---
MRI LUMBAR SPINE COMBINATION CLINICAL HISTORY: Multiple myeloma with back pain TECHNIQUE: Sagittal and axial T1, T2 and STIR images were obtained. Images were acquired before and after administration of 6 cc of intravenous Gadavist. COMPARISON STUDY: No previous studies for comparison. OBSERVATIONS: Sole Edge Inker Machine images reveal a 46 mm left renal cyst. There is diffuse heterogeneity in the marrow signal, consistent with the clinical history of multiple myeloma. There is a focal area of marrow replacement measuring 17 mm within the T11 vertebral body. Small focal areas of marrow replacement are also visualized within the sacrum. There is also a focal 14 mm lesion within the right iliac bone. There are mild superior endplate compression deformities at the L2 and L3 levels. L1-2: There is a circumferential disc bulge with mild spinal stenosis. There is no significant foraminal narrowing L2-3: There is a circumferential disc bulge with mild spinal stenosis. There is no significant foraminal narrowing L3-4: There is a circumferential disc bulge. There is a slight triangular configuration of the thecal sac. There is no significant foraminal narrowing L4-5: There is a mild circumferential disc bulge. There is no significant spinal or foraminal stenosis. L5-S1: There is no evidence of significant disc bulge or focal herniation. There is no evidence of spinal or foraminal stenosis. The conus medullaris and cauda equina appear normal. IMPRESSION: 1. Mild marrow signal consistent with a clinical history of myeloma. More focal lesions are visualized the T11 level and right iliac bone. 2. Multilevel spondylitic changes with mild spinal stenosis most pronounced at the L1-2, and L2-3 levels. 3. Mild superior endplate compression fractures at the L2 and L3 levels. Electronically signed by: Christopher Dias M.D. 10/11/2017 7:03 PM Dictated Date/Time: 10/11/2017 6:56 PM
== END | disposition home or self-care (01) ==
LOC: C.MRI 17:32
PROVIDERS: ATTEND Internal Medicine Hematology & Oncology
DX: M47.26 Other spondylosis with radiculopathy, lumbar region (principal); C90.00 Multiple myeloma not having achieved remission

== ENCOUNTER 2021-01-29 09:06 | Inpatient (IN) ==
[2021-01-29 09:38] LABS: Base Excess VBG 8.3 mEq/L; Oxygen Saturation VBG 93.1 %; pH VBG 7.42 (7.36-7.41)
[2021-01-29 09:39] LABS: Hematocrit (blood only) 32.5 % (42-52); Hemoglobin 10.5 g/dL (14.0-18.0); Mean Corpuscular Hemoglobin 32.9 pg (25-34); Mean Corpuscular Hgb Conc 32.3 g/dL (32-36); Mean Corpuscular Volume 101.9 fL (80-100); RDW Coefficient of Variation 14.3 % (11.5-14.5); RDW Standard Deviation 53.8 fL (36.4-46.3); Red Blood Count 3.19 M/uL (4.7-6.1); White Blood Count 17.73 K/uL (4.8-10.8)
--- NOTE | 2021-01-29 09:40 | Emergency Department Note ---
Impression & Plan Pneumonia, Hypoxia, Pulmonary fibrosis, unspecified ED Provider Note NAME: JENNI OLSEN AGE: 80 SEX: M : 1940 ARRIVES VIA: Ambulance INFORMANT: Patient, ED PROVIDER(S): Braydon Ornelas DO CHIEF COMPLAINT: Shortness of breath HPI: The patient is an 80-year-old male who presented to the emergency department for an evaluation of shortness of breath. 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 He has had pulmonary issues for approximately 4 years. The patient states he started having worsening shortness of breath over the last few days but became severely worse over the last 24 hours. The patient normally wears oxygen. He was trying to ambulate up the stairs when he realized he was having very severe shortness of breath. The ambulance was called and the patient was found to be severely hypoxic. His supplemental oxygen was increased at that time. The patient continues to have very severe shortness of breath. At rest his symptoms significantly improved. He denies having any chest pain. He denies having any productive cough or fever. He has had no exposure to COVID-19. The patient denies having any lower extremity swelling or pain. He has had CT of the chest to follow his pulmonary fibrosis but does not have a history of pulmonary e mbolism or venous thromboembolic disease in the legs. The patient has not recently seen his family doctor. He has been compliant with all of his outpatient medications otherwise. ROS: See above HPI for pertinent positives & negatives. A total of 10 systems reviewed and were otherwise negative. PAST MEDICAL HISTORY: See Below PAST SURGICAL HISTORY: See Below FAMILY HISTORY: See Below SOCIAL HISTORY: See Below HOME MEDICATIONS: See Below ALLERGIES: See Below VITALS: See Below PHYSICAL EXAMINATION: GENERAL: The patient is awake and alert. He is somewhat cachectic appearing. EYES: The conjunctivae are clear. The pupils are round and reactive. EARS, NOSE, MOUTH AND THROAT: The nose is without any evidence of any deformity. NECK: The neck is nontender and supple. RESPIRATORY: Diminished breath sounds are noted throughout. There is significant tachypnea as well as conversational dyspnea. Dry rales were noted throughout as well. CARDIOVASCULAR: Regular rate and rhythm noted there no murmurs rubs or gallops normal S1 normal S2. GASTROINTESTINAL: The abdomen is soft. Abdomen is nontender. MUSCULOSKELETAL/EXTREMITIES: There is no evidence of gross deformity full range of motion is noted in the hips and shoulders. SKIN: There is no obvious evidence of any rash. No significant pedal edema was noted. NEUROLOGIC: Patient is awake alert and oriented x 3. MEDICAL DECISION MAKING: The patient is an 80-year-old male who presented to the emergency department for an evaluation of shortness of breath. The patient has a history of underlying pulmonary fibrosis from previous chemotherapy. The patient was on supplemental oxygen. His symptoms significantly improved by increasing his supplemental oxygen. The patient's lung sounds were very abnormal. Chest x-ray did not show any acute change from previous but because of the degree of hypoxia D-dimer was ordered. This led to a CT of the chest which did appear to be consistent with bilateral lower lobe pneumonia. The patient had blood cultures drawn. He was treated with IV fluids and IV antibiotics in the emergency department. I discussed the patient's laboratory and radiographic studies with him. The [facility] was notified about the patient and will evaluate the patient in the emergency department. Triage Nursing notes reviewed. Prior medical records reviewed Vital Signs: reviewed and remarkable for hypoxia and hypotension. Differential diagnosis: Reactive airway disease, pneumonia, pneumothorax, COPD, CHF, infections, cardiac ischemia, pulmonary embolism, musculoskeletal, gastrointestinal, as well as other pathologies. ER treatment provided: See below Diagnostics interpreted by me: ECG: EKG was obtained in the emergency department. My interpretation is normal sinus rhythm at [address] Inferior and lateral ST depressions were noted. PVCs were noted. This was compared to a tracing from September 082017. No significant changes were noted. Cardiac Monitoring: An order was placed for continuous cardiac monitoring. The monitor shows a rate of 85 bpm with sinus rhythm. Laboratory studies: As stated above and show below. Imaging studies: See below Consultation(s): Dr. Sylvester was notified about the patient and will evaluate the patient in the emergency department. Past Med/Surg History Medical History Arteriosclerosis of carotid artery Arteriosclerotic coronary artery disease Atrial premature complex Chronic back pain Cough Diverticulosis Generalized osteoarthritis of multiple sites Hemorrhoids History of paroxysmal supraventricular tachycardia History of tachycardia Immunoglobulin A deficiency Leukopenia Nephrolithiasis Neutropenia Pain in both lower extremities Palpitation Premature ventricular contractions Rib pain on left side Sacral region somatic dysfunction Seasonal allergies Segmental and somatic dysfunction of abdomen and other regions Segmental and somatic dysfunction of lumbar region Segmental and somatic dysfunction of rib cage Segmental and somatic dysfunction of thoracic region Segmental and somatic dysfunction of upper extremity Selective immunoglobulin M deficiency Sinusitis, chronic Supraventricular tachycardia Tick bite Ventricular tachycardia Surgical History S/P aortic valve replacement S/P CABG (coronary artery bypass graft) x 4 done at [facility] 10/30/2013 S/P wisdom tooth extraction Family History Father Myocardial infarction Stroke Hypertension Heart disease Other Allergies No family history of adverse response to anesthesia No family history of bleeding disorder Denies family history of Ovarian cancer Prostate cancer Breast cancer Colorectal cancer Social History Smoking Status: Never smoker Hx Alcohol Use: Yes Hx Substance Use: No Preferred Language: Nepalese marital status: Current Living Situation: Spouse current occupational status: retired Feels Safe at Home: Yes Childhood Exposure to Second-Hand Smoke: Yes Dental Care, Regularly: Yes Physical Activity Frequency: 5-6 Times per Week Seatbelt Use: always Sunscreen Use: Yes Allergies Allergies Allergy/AdvReac Type Severity Reaction Status Date / Time house dust mite Allergy Verified 01/18/21 14:43 tree and shrub pollen Allergy Verified 01/18/21 14:43 gabapentin AdvReac Unknown Dizziness Verified 01/18/21 14:43 Home Meds Home Medications Medication Instructions Recorded Confirmed aspirin 81 mg tablet,delayed 81 mg PO DAILY tab 03/24/19 01/29/21 release bendamustine 25 mg/mL intravenous See Rx Instructions IV MONTHLY ml 05/16/20 01/29/21 solution valacyclovir 500 mg tablet 500 mg PO BID 05/16/20 01/29/21 (Valtrex) prednisone 20 mg tablet 20 mg PO DAILY 01/29/21 01/29/21 Previous Rx's Medication Instructions Recorded rosuvastatin 10 mg tablet (Crestor) 10 mg PO DAILY #90 tab 02/20/20 metoprolol succinate 100 mg 100 mg PO DAILY #90 tab 04/12/20 tablet,extended release 24 hr albuterol sulfate 90 mcg/actuation 2 puff INHALATION Q6H PRN #18 g 10/10/20 aerosol inhaler ipratropium 0.5 mg-albuterol 3 mg 3 ml INH Q6H PRN #180 ml 10/10/20 (2.5 mg base)/3 mL nebulization soln mirtazapine 15 mg tablet (Remeron) 15 mg PO DAILY #30 tab 10/13/20 promethazine-DM 6.25 mg-15 mg/5 mL 5 ml PO Q6H PRN #473 ml 10/13/20 oral syrup ipratropium bromide 42 mcg (0.06 2 spray INTRANASAL TID #15 ml 11/22/20 %) nasal spray tamsulosin 0.4 mg capsule (Flomax) 0.4 mg PO DAILY #30 cap 11/25/20 fluticasone furoate 100 1 inh INHALATION DAILY #28 ea 12/15/20 mcg-vilanterol 25 mcg/dose inhalation powder (Breo Ellipta) famotidine 20 mg tablet (Acid 20 mg PO DAILY 42 Days #42 tab 12/19/20 Cinder Dump Crane Operator (famotidine)) pantoprazole 40 mg tablet,delayed 40 mg PO DAILY #30 tab 12/19/20 release azelastine 137 mcg (0.1 %) nasal 2 spray INTRANASAL BID #30 ml 01/17/21 spray aerosol terbinafine HCl 250 mg tablet 250 mg PO DAILY #42 tab 01/18/21 Results & Data (ED) Vital Signs Vital Signs - 24 hr 01/29/21 09:13 01/29/21 09:30 01/29/21 09:49 Temperature 36.7 C Temperature Source Oral Pulse Rate 96 H 93 H Pulse Rate [Apical] Pulse Rate from SpO2 Sensor 96 H Respiratory Rate 28 H 22 Respiratory Effort / Characteristics Non-Labored Blood Pressure 105/64 105/64 Blood Pressure [Right Arm] Blood Pressure Mean 77 77 Blood Pressure Mean [Right Arm] Pulse Oximetry 97 95 92 Oxygen Delivery Method Nasal Cannula Nasal Cannula Oxygen Flow Rate 5 6 6 Sepsis Recent Fever Within 48 Hours No Sepsis New/Unexplained Change in Mental Status N/A Sepsis Action Taken by Nursing No Action Required Oxygen Flow Rate - Titration 6 01/29/21 11:00 01/29/21 11:58 Temperature Temperature Source Pulse Rate Pulse Rate [Apical] 88 85 Pulse Rate from SpO2 Sensor Respiratory Rate 24 26 H Respiratory Effort / Characteristics Blood Pressure Blood Pressure [Right Arm] 96/60 L Blood Pressure Mean Blood Pressure Mean [Right Arm] 72 Pulse Oximetry 100 93 Oxygen Delivery Method Nasal Cannula Nasal Cannula Oxygen Flow Rate 5 4 Sepsis Recent Fever Within 48 Hours Sepsis New/Unexplained Change in Mental Status Sepsis Action Taken by Nursing Oxygen Flow Rate - Titration Home Medications Current Medication List: was personally reviewed by me Laboratory Data Attestation: I reviewed the patient's lab results. Result diagrams: 01/29/21 09:29 01/29/21 10:23 Lab Results 01/29/21 01/29/21 01/29/21 Range/Units 08:30 09:29 09:29 WBC 17.73 H (4.8-10.8) K/uL RBC 3.19 L (4.7-6.1) M/uL Hgb 10.5 L (14.0-18.0) g/dL Hct 32.5 L (42-52) % MCV 101.9 H (80-100) fL MCH 32.9 (25-34) pg MCHC 32.3 (32-36) g/dL RDW Std Deviation 53.8 H (36.4-46.3) fL RDW Coeff of Renee 14.3 (11.5-14.5) % Plt Count 98 L (130-400) K/uL MPV 10.6 H (7.4-10.4) fL Immature Gran % (Auto) 1.2 % Neut % (Auto) 90.7 % Lymph % (Auto) 2.1 % [place] % (Auto) 5.8 % Eos % (Auto) 0.1 % Baso % (Auto) 0.1 % Neut # (Auto) 16.10 H (1.4-6.5) K/uL Lymph # (Auto) 0.37 L (1.2-3.4) K/uL [place] # (Auto) 1.02 H (0.11-0.59) K/uL Eos # (Auto) 0.00 (0-0.5) K/uL Baso # (Auto) 0.00 (0-0.2) K/uL Immature Gran # (Auto) 0.00 (0.00-0.02) K/uL Neutrophils % (Manual) % Lymphocytes % (Manual) % Monocytes % (Manual) % Neutrophils # (Manual) 16.79 H (1.4-6.5) K/uL Total Absolute Neuts (1.4-6.5) K/uL Lymphocytes # (Manual) 0.32 L (1.2-3.4) K/uL Total Abs Lymphocytes (1.2-3.4) K/uL Monocytes # (Manual) 0.62 H (0.11-0.59) K/uL Platelet Estimate Decreased L (Normal) D-Dimer 3660 H* (0-500) ug/L FEU VBG pH (7.36-7.41) VBG pCO2 (38-50) mmHg VBG pO2 mmHg VBG HCO3 mmol/L VBG O2 Saturation % VBG Base Excess mEq/L Barometric Pressure mm/Hg Sodium (136-145) mmol/L Potassium (3.5-5.1) mmol/L Chloride (98-107) mmol/L Carbon Dioxide (21-32) mmol/L Anion Gap (3-11) BUN (7-18) mg/dl Creatinine (0.6-1.4) mg/dl Est Cr Clr Drug Dosing ml/min Est GFR ( Amer) ml/min Est GFR (Non-Af Amer) ml/min BUN/Creatinine Ratio (10-20) Glucose (70-99) mg/dl Calcium (8.5-10.1) mg/dl Magnesium (1.8-2.4) mg/dl Total Bilirubin (0.2-1) mg/dl AST (15-37) U/L ALT (12-78) U/L Alkaline Phosphatase (45-117) U/L Troponin I (0-0.045) ng/ml NT-Pro-B Natriuret Pep (0-1800) pg/ml Total Protein (6.4-8.2) gm/dl Albumin (3.4-5.0) gm/dl Globulin (2.5-4.0) gm/dl Albumin/Globulin Ratio (0.9-2) Urine Color Yellow Urine Appearance Clear (Clear) Urine pH 8.5 H (4.5-7.5) Ur Specific [place] 1.015 (1.000-1.030) Urine Protein Trace H (Negative) Urine Glucose (UA) Negative (Negative) Urine Ketones Negative (Negative) Urine Blood 1+ H (Negative) Urine Nitrite Negative (Negative) Urine Bilirubin Negative (Negative) Urine Urobilinogen Negative (Negative) Ur Leukocyte Esterase Negative (Negative) Urine WBC (Auto) 1-5 (0-5) /hpf Urine RBC (Auto) 10-30 H (0-4) /hpf U Hyaline Cast (Auto) 1-5 (0-5) /lpf U Epithel Cells (Auto) 20-30 H (0-5) /lpf Urine Bacteria (Auto) Negative (Negative) COVID-19 Eval Order SARS-CoV-2, RNA, NAAT (NEGATIVE) 01/29/21 01/29/21 01/29/21 Range/Units 09:29 09:29 09:54 WBC (4.8-10.8) K/uL RBC (4.7-6.1) M/uL Hgb (14.0-18.0) g/dL Hct (42-52) % MCV (80-100) fL MCH (25-34) pg MCHC (32-36) g/dL RDW Std Deviation (36.4-46.3) fL RDW Coeff of Renee (11.5-14.5) % Plt Count (130-400) K/uL MPV (7.4-10.4) fL Immature Gran % (Auto) % Neut % (Auto) % Lymph % (Auto) % [place] % (Auto) % Eos % (Auto) % Baso % (Auto) % Neut # (Auto) (1.4-6.5) K/uL Lymph # (Auto) (1.2-3.4) K/uL [place] # (Auto) (0.11-0.59) K/uL Eos # (Auto) (0-0.5) K/uL Baso # (Auto) (0-0.2) K/uL Immature Gran # (Auto) (0.00-0.02) K/uL Neutrophils % (Manual) % Lymphocytes % (Manual) % Monocytes % (Manual) % Neutrophils # (Manual) (1.4-6.5) K/uL Total Absolute Neuts (1.4-6.5) K/uL Lymphocytes # (Manual) (1.2-3.4) K/uL Total Abs Lymphocytes (1.2-3.4) K/uL Monocytes # (Manual) (0.11-0.59) K/uL Platelet Estimate (Normal) D-Dimer (0-500) ug/L FEU VBG pH 7.42 H (7.36-7.41) VBG pCO2 55 H (38-50) mmHg VBG pO2 66 mmHg VBG HCO3 34 mmol/L VBG O2 Saturation 93.1 % VBG Base Excess 8.3 mEq/L Barometric Pressure 730.2 mm/Hg Sodium 135 L (136-145) mmol/L Potassium (3.5-5.1) mmol/L Chloride 98 (98-107) mmol/L Carbon Dioxide 34 H (21-32) mmol/L Anion Gap 3.0 (3-11) BUN 17 (7-18) mg/dl Creatinine 0.71 (0.6-1.4) mg/dl Est Cr Clr Drug Dosing 109.0 ml/min Est GFR ( Amer) 102.7 ml/min Est GFR (Non-Af Amer) 88.6 ml/min BUN/Creatinine Ratio 23.9 H (10-20) Glucose 105 H (70-99) mg/dl Calcium 8.7 (8.5-10.1) mg/dl Magnesium (1.8-2.4) mg/dl Total Bilirubin 0.4 (0.2-1) mg/dl AST (15-37) U/L ALT 17 (12-78) U/L Alkaline Phosphatase 133 H (45-117) U/L Troponin I 0.048 H* (0-0.045) ng/ml NT-Pro-B Natriuret Pep 1820 H (0-1800) pg/ml Total Protein 6.6 (6.4-8.2) gm/dl Albumin 2.7 L (3.4-5.0) gm/dl Globulin 3.9 (2.5-4.0) gm/dl Albumin/Globulin Ratio 0.7 L (0.9-2) Urine Color Urine Appearance (Clear) Urine pH (4.5-7.5) Ur Specific [place] (1.000-1.030) Urine Protein (Negative) Urine Glucose (UA) (Negative) Urine Ketones (Negative) Urine Blood (Negative) Urine Nitrite (Negative) Urine Bilirubin (Negative) Urine Urobilinogen (Negative) Ur Leukocyte Esterase (Negative) Urine WBC (Auto) (0-5) /hpf Urine RBC (Auto) (0-4) /hpf U Hyaline Cast (Auto) (0-5) /lpf U Epithel Cells (Auto) (0-5) /lpf Urine Bacteria (Auto) (Negative) COVID[facility]19 [id number] SARS-[facility]-2, RNA, NAAT (NEGATIVE) 01/29/21 01/29/21 Range/Units 09:54 10:23 WBC (4.8-10.8) K/uL RBC (4.7-6.1) M/uL Hgb (14.0-18.0) g/dL Hct (42-52) % MCV (80-100) fL MCH (25-34) pg MCHC (32-36) g/dL RDW Std Deviation (36.4-46.3) fL RDW Coeff of Renee (11.5-14.5) % Plt Count (130-400) K/uL MPV (7.4-10.4) fL Immature Gran % (Auto) % Neut % (Auto) % Lymph % (Auto) % [place] % (Auto) % Eos % (Auto) % Baso % (Auto) % Neut # (Auto) (1.4-6.5) K/uL Lymph # (Auto) (1.2-3.4) K/uL [place] # (Auto) (0.11-0.59) K/uL Eos # (Auto) (0-0.5) K/uL Baso # (Auto) (0-0.2) K/uL Immature Gran # (Auto) (0.00-0.02) K/uL Neutrophils % (Manual) % Lymphocytes % (Manual) % Monocytes % (Manual) % Neutrophils # (Manual) (1.4-6.5) K/uL Total Absolute Neuts (1.4-6.5) K/uL Lymphocytes # (Manual) (1.2-3.4) K/uL Total Abs Lymphocytes (1.2-3.4) K/uL Monocytes # (Manual) (0.11-0.59) K/uL Platelet Estimate (Normal) D-Dimer (0-500) ug/L FEU VBG pH (7.36-7.41) VBG pCO2 (38-50) mmHg VBG pO2 mmHg VBG HCO3 mmol/L VBG O2 Saturation % VBG Base Excess mEq/L Barometric Pressure mm/Hg Sodium (136-145) mmol/L Potassium 4.2 (3.5-5.1) mmol/L Chloride (98-107) mmol/L Carbon Dioxide (21-32) mmol/L Anion Gap (3-11) BUN (7-18) mg/dl Creatinine (0.6-1.4) mg/dl Est Cr Clr Drug Dosing ml/min Est GFR ( Amer) ml/min Est GFR (Non-Af Amer) ml/min BUN/Creatinine Ratio (10-20) Glucose (70-99) mg/dl Calcium (8.5-10.1) mg/dl Magnesium 2.0 (1.8-2.4) mg/dl Total Bilirubin (0.2-1) mg/dl AST 16 (15-37) U/L ALT (12-78) U/L Alkaline Phosphatase (45-117) U/L Troponin I (0-0.045) ng/ml NT-Pro-B Natriuret Pep (0-1800) pg/ml Total Protein (6.4-8.2) gm/dl Albumin (3.4-5.0) gm/dl Globulin (2.5-4.0) gm/dl Albumin/Globulin Ratio (0.9-2) Urine Color Urine Appearance (Clear) Urine pH (4.5-7.5) Ur Specific [place] (1.000-1.030) Urine Protein (Negative) Urine Glucose (UA) (Negative) Urine Ketones (Negative) Urine Blood (Negative) Urine Nitrite (Negative) Urine Bilirubin (Negative) Urine Urobilinogen (Negative) Ur Leukocyte Esterase (Negative) Urine WBC (Auto) (0-5) /hpf Urine RBC (Auto) (0-4) /hpf U Hyaline Cast (Auto) (0-5) /lpf U Epithel Cells (Auto) (0-5) /lpf Urine Bacteria (Auto) (Negative) COVID-19 Eval Order SARS-CoV-2, RNA, NAAT NEGATIVE (NEGATIVE) Administered Medications Discontinued Medications Ioversol (Optiray 320 125ml) 120 ml IV ONCE ONE Stop: 01/29/21 10:59 Last Admin: 01/29/21 10:58 Dose: 120 ml Documented by: [id number] Imaging Data Radiologist's Impression: Chest X-Ray 01/29/21 09:22 XR chest 1V portable CLINICAL HISTORY: Dyspnea COMPARISON STUDY: August 11, 2019 FINDINGS: No pneumothorax. No pleural effusion. Diffuse coarse reticular opacities are seen throughout bilateral lungs, most likely chronic and were also seen during prior study which could represent pulmonary fibrosis. Cardiomediastinal silhouette is within normal limits in size. Pulmonary vasculature is obscured. Aorta is calcified. Osseous structures: Diffuse osteopenia and degenerative changes of the spine. Midline sternotomy wires and prosthetic aortic valve are again seen. Surgical clips are seen within left upper quadrant. IMPRESSION: 1. Stable diffuse coarse reticular opacities throughout bilateral lungs which could represent pulmonary fibrosis and where also seen during prior study. 2. Atherosclerosis. 3. Stable cardiomediastinal silhouette. ACT 112: Negative or not required by law. The above report was generated using voice recognition software. It may contain grammatical, syntax or spelling errors. Electronically signed by: Clementina Muhammad DO 01/29/2021 9:55 AM Chest CTA 01/29/21 10:25 CT ANGIOGRAM OF THE CHEST CLINICAL HISTORY: PE COMPARISON STUDY: October 28, 2020 TECHNIQUE: Following the IV administration of 120 mL of Optiray, CT angiogram of the thorax was performed from the thoracic inlet to the lung bases utilizing the pulmonary embolus protocol. Images are reviewed in the axial, sagittal, and coronal planes. IV contrast was administered without complication. MIP imaging was performed. A dose lowering technique was utilized adhering to the prin ciples of JAZMIN. CT DOSE: 327.87 mGy.cm FINDINGS: No definite filling defect are seen within pulmonary artery and its branches however opacification within main pulmonary artery is suboptimal for adequate evaluation for pulmonary embolus. No dilatation of pulmonary artery is seen. No evidence of right heart strain. Redemonstration of the four-chamber cardiomegaly, prosthetic aortic valve and severe calcifications of the coronary arteries, status post CABG. Azygos vein is dilated. No pathologically enlarged axillary mediastinal or hilar lymph nodes were visualized. Thoracic aorta is normal in caliber and extensive calcifications within its wall. Multiple enhancing bronchial arteries are seen Tracheobronchial tree is patent. There is diffuse groundglass attenuation of pulmonary parenchyma and extensive traction bronchiectasis, septal thickening and possible peripheral honeycombing seen. Interval development of consolidative lesions within bilateral lower lobes which might represent pneumonia. No definite pleural effusion is seen. Limited evaluation of upper abdominal viscera shows dilated gallbladder and no evidence of acute intra-abdominal process. Evaluation of osseous structures shows severe diffuse osteopenia, sternotomy changes and multilevel lytic lesions within vertebral bodies which is unchanged since prior study and likely represent multiple myeloma lesions which were previously reported. IMPRESSION: 1. No definite filling defect is seen within pulmonary artery and its branches however opacification within main pulmonary artery is suboptimal for adequate evaluation for pulmonary embolus. 2. Redemonstration of pulmonary fibrosis with interval development of consolidative opacities within bilateral lower lobes which might represent pneumonia. 3. Four-chamber cardiomegaly. 4. Atherosclerosis 5. The rest of findings as above. ACT 112: Negative or not required by law. The above report was generated using voice recognition software. It may contain grammatical, syntax or spelling errors. Electronically signed by: Clementina Muhammad DO 01/29/2021 11:42 AM Discharge Plan Visit Data Chief Complaint: Shortness of Breath/Dyspnea Stated Complaint: SOB ED Provider: Braydon Ornelas Discharge Problem: Pneumonia, Hypoxia, Pulmonary fibrosis, unspecified Patient Disposition: Being Evaluated by Hospitalist Condition: Good Forms Stand Alone Forms: My Press About Us Prescriptions Prescriptions: No Action rosuvastatin [Crestor] 10 mg tablet 10 mg PO DAILY Qty: 90 RF: 3 metoprolol succinate 100 mg tablet extended release 24 hr 100 mg PO DAILY Qty: 90 RF: 3 valacyclovir [Valtrex] 500 mg tablet 500 mg PO BID RF: 0 bendamustine 25 mg/mL solution See Rx Instructions IV MONTHLY RF: 0 ipratropium bromide 42 mcg (0.06 %) spray,non-aerosol 2 spray intranasal TID Qty: 15 RF: 3 Breo Ellipta 100-25 mcg/dose blister with device 1 inh inhalation DAILY Qty: 28 RF: 5 azelastine 137 mcg (0.1 %) aerosol,spray 2 spray intranasal BID Qty: 30 RF: 3 aspirin 81 mg tablet,delayed release (DR/EC) 81 mg PO DAILY RF: 0 famotidine [Acid Cinder Dump Crane Operator (famotidine)] 20 mg tablet 20 mg PO DAILY 42 Days Qty: 42 RF: 3 pantoprazole 40 mg tablet,delayed release (DR/EC) 40 mg PO DAILY Qty: 30 RF: 3 tamsulosin [Flomax] 0.4 mg capsule 0.4 mg PO DAILY Qty: 30 RF: 2 terbinafine HCl 250 mg tablet 250 mg PO DAILY Qty: 42 RF: 0 promethazine-DM 6.25-15 mg/5 mL syrup 5 ml PO Q6H PRN (Reason: cough) Qty: 473 RF: 0 mirtazapine [Remeron] 15 mg tablet 15 mg PO DAILY Qty: 30 RF: 2 albuterol sulfate 90 mcg/actuation HFA aerosol inhaler 2 puff inhalation Q6H PRN (Reason: Shortness Of Breath Or Wheezing) Qty: 18 RF: 3 fluticasone furoate-vilanterol [Breo Ellipta] 100-25 mcg/dose blister with device 1 ea inhalation DAILY RF: 0 ipratropium-albuterol 0.5 mg-3 mg(2.5 mg base)/3 mL solution for nebulization 3 ml INH Q6H PRN (Reason: wheezing) Qty: 180 RF: 2 prednisone 20 mg tablet 20 mg PO DAILY RF: 0 Referrals Referrals: Dustin Mendieta DO [Primary Care Provider] -
[2021-01-29 09:50] LABS: Appearance Urine Clear (Clear); Bacteria Urine Automated Negative (Negative); Bilirubin Urine Negative (Negative); Blood Urine 1+ (Negative); Color Urine Yellow; Epithelial Cell Urine Auto 20-30 /lpf (0-5); Glucose Urine UA Negative (Negative); Ketones Urine Negative (Negative); Leukocyte Esterase Urine Negative (Negative); Nitrite Urine Negative (Negative); Specific Gravity Urine 1.015 (1.000-1.030); Urobilinogen Urine Negative (Negative); pH Urine 8.5 (4.5-7.5)
[2021-01-29 09:57] LABS: Lymphocytes # (manual) 0.32 K/uL (1.2-3.4); Mean Platelet Volume 10.6 fL (7.4-10.4); Monocytes # (manual) 0.62 K/uL (0.11-0.59); Neutrophils # (manual) 16.79 K/uL (1.4-6.5); Platelet Count 98 K/uL (130-400); Platelet Estimate Decreased (Normal)
--- NOTE | 2021-01-29 09:57 | XRay Report ---
XR chest 1V portable CLINICAL HISTORY: Dyspnea COMPARISON STUDY: August 11, 2019 FINDINGS: No pneumothorax. No pleural effusion. Diffuse coarse reticular opacities are seen throughout bilateral lungs, most likely chronic and were also seen during prior study which could represent pulmonary fibrosis. Cardiomediastinal silhouette is within normal limits in size. Pulmonary vasculature is obscured. Aorta is calcified. Osseous structures: Diffuse osteopenia and degenerative changes of the spine. Midline sternotomy wir es and prosthetic aortic valve are again seen. Surgical clips are seen within left upper quadrant. IMPRESSION: 1. Stable diffuse coarse reticular opacities throughout bilateral lungs which could represent pulmon dionicio fibrosis and where also seen during prior study. 2. Atherosclerosis. 3. Stable cardiomediastinal silhouette. ACT 112: Negative or not required by law. The above report was generated using voice recognition software. It may contain grammatical, syntax o r spelling errors. Electronically signed by: Clementina Muhammad DO 01/29/2021 9:55 AM
[2021-01-29 09:59] LABS: Basophils % (auto) 0.1 %; Eosinophils % (auto) 0.1 %; Lymphocytes % (auto) 2.1 %; Monocytes % (auto) 5.8 %; Neutrophils % (auto) 90.7 %
[2021-01-29 10:03] LABS: Protein Urine Trace (Negative)
[2021-01-29 10:06] LABS: Albumin Globulin Ratio 0.7 (0.9-2); Albumin Level 2.7 gm/dl (3.4-5.0); BUN Creatinine Ratio 23.9 (10-20); Bilirubin,Total 0.4 mg/dl (0.2-1); Calcium 8.7 mg/dl (8.5-10.1); Est GFR (African American) 102.7 ml/min; Est GFR (Non-African American) 88.6 ml/min; Globulin 3.9 gm/dl (2.5-4.0); Total Protein 6.6 gm/dl (6.4-8.2); Troponin I 0.048 ng/ml (0-0.045)
[2021-01-29 10:25] LABS: D Dimer 3660 ug/L FEU (0-500); Immature Granulocytes % (auto) 1.2 %
[2021-01-29 10:38] LABS: Lymphocytes # (auto) 0.37 K/uL (1.2-3.4)
[2021-01-29 10:39] LABS: Monocytes # (auto) 1.02 K/uL (0.11-0.59)
[2021-01-29 10:53] LABS: Potassium 4.2 mmol/L (3.5-5.1)
[2021-01-29] MEDS ORDERED: OPTIRAY 320 125ml IV ONE (10:58)
--- NOTE | 2021-01-29 11:44 | CT Scan Report ---
CT ANGIOGRAM OF THE CHEST CLINICAL HISTORY: PE COMPARISON STUDY: October 28, 2020 TECHNIQUE: Following the IV administration of 120 mL of Optiray, CT angiogram of the thorax was perfo rmed from the thoracic inlet to the lung bases utilizing the pulmonary embolus protocol. Images are r eviewed in the axial, sagittal, and coronal planes. IV contrast was administered without complication . MIP imaging was performed. A dose lowering technique was utilized adhering to the principles of AL ZAKIYA. CT DOSE: 327.87 mGy.cm FINDINGS: No definite filling defect are seen within pulmonary artery and its branches however opacification wi thin main pulmonary artery is suboptimal for adequate evaluation for pulmonary embolus. No dilatation of pulmonary artery is seen. No evidence of right heart strain. Redemonstration of the four-chamber cardiomegaly, prosthetic aortic valve and severe calcifications o f the coronary arteries, status post CABG. Azygos vein is dilated. No pathologically enlarged axillary mediastinal or hilar lymph nodes were visualized. Thoracic aorta is normal in caliber and extensive calcifications within its wall. Multiple enhancing bronchial arteries are seen Tracheobronchial tree is patent. There is diffuse groundglass attenuation of pulmonary parenchyma and extensive traction bronchiectasi s, septal thickening and possible peripheral honeycombing seen. Interval development of consolidative lesions within bilateral lower lobes which might represent pneu monia. No definite pleural effusion is seen. Limited evaluation of upper abdominal viscera shows dilated gallbladder and no evidence of acute intr a-abdominal process. Evaluation of osseous structures shows severe diffuse osteopenia, sternotomy changes and multilevel l ytic lesions within vertebral bodies which is unchanged since prior study and likely represent multip le myeloma lesions which were previously reported. IMPRESSION: 1. No definite filling defect is seen within pulmonary artery and its branches however opacification within main pulmonary artery is suboptimal for adequate evaluation for pulmonary embolus. 2. Redemonstration of pulmonary fibrosis with interval development of consolidative opacities within bilateral lower lobes which might represent pneumonia. 3. Four-chamber cardiomegaly. 4. Atherosclerosis 5. The rest of findings as above. ACT 112: Negative or not required by law. The above report was generated using voice recognition software. It may contain grammatical, syntax o r spelling errors. Electronically signed by: Clementina Muhammad DO 01/29/2021 11:42 AM
[2021-01-29] MEDS ORDERED: PIPERACILL/TAZOBAC CONSULT ACTIVE PRN ×2 (11:48→13:38)
[2021-01-29] MEDS ORDERED: PIPERACILLIN/TAZOBACTAM 4.5 GM/120 ML BAG IV ONE (11:48)
[2021-01-29] MEDS ORDERED: SODIUM CHLORIDE 0.9% 500 ML IV ONE (12:32)
[2021-01-29] MEDS ORDERED: methylPREDNISolone 125 MG/2 ML VIAL IV SCH (13:00)
[2021-01-29] MEDS ORDERED: PIPERACILLIN/TAZOBACTAM 3.375 GM in DEXTROSE 5% 100 ML IV SCH (13:45)
--- NOTE | 2021-01-29 13:48 | History & Physical Report ---
Date of Service January 29, 2021 Assessment & Plan (1) Pneumonia: Plan: 80 y/o M Hx HTN, HLD, GERD, CAD, multiple myeloma, ILD - home 02. Presents with progressive SOB. He has become severely short of breath over the past few days with minimal exertion and has had increasing oxygen requirements. He reports a fever of 100.1 the prior evening. He was markedly hypoxic on arrival to the ER. He has a persistent productive cough recently, which he attributes to GERD. Initial labs were notable for leukocytosis, anemia, protein malnutrition, an elevated dimer and a troponin of .048. A CTA was negative for PE but did demonstrate ILD and BL basilar opacities consistent with PNM. An EKG did not support ischemia. The pt become hypotensive in the ER with a BP of 90/60 which improved with IVF. 1) PNM - the pt is placed on Zosyn and Doxy to cover possible aspiration and atypical PNM as well. He is assigned to telemetry owing to his oxygen requirements and borderline low BP. 2) ILD - we will treat for lung disease exacerbation with steroids, nebs, 02 protocol. He will be evaluated by pulmonary. 3) CAD and elevated trop - trop is likely demand-related as he does not have an EKG or symptoms consistent with acute ischemia. We will cont ASA, statin and a beta federico if tolerated. Trop will be trended and we will order an echo if there is an upward trend. 4) Anemia - macrocytic and may be worsening - likely anemia of chronic disease, but we will check a B12. Trend Hb AM. 5) Malnutrition - supplements provided Full code - Lovenox prophylaxis Total time for this admit including review of labs, meds, imaging, records - discussion with pt, , ER attending - 55 min (2) Pulmonary fibrosis, unspecified: History of Present Illness Chief Complaint: Shortness of breath Primary Care Provider: Dustin Mendieta, DO 80 y/o M Hx HTN, HLD, GERD, CAD, multiple myeloma, ILD - home 02. Presents with progressive SOB. He has become severely short of breath over the past few days with minimal exertion and has had increasing oxygen requirements. He reports a fever of 100.1 the prior evening. He was markedly hypoxic on arrival to the ER. He has a persistent productive cough recently, which he attributes to GERD. Initial labs were notable for leukocytosis, anemia, protein malnutrition, an elevated dimer and a troponin of .048. A CTA was negative for PE but did demonstrate ILD and BL basilar opacities consistent with PNM. An EKG did not support ischemia. The pt become hypotensive in the ER with a BP of 90/60 which improved with IVF. 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 6) Multiple myelome - currently treated with Bendamustine 7) SVT 8) Macrocytic anemia 9) Aortic stenosis Surgical: 1) AVR - bioprosthesis 2) CABG Social: Does not smoke or drink Family: CAD, HTN Allergies Allergy/AdvReac Type Severity Reaction Status Date / Time house dust mite Allergy Verified 01/18/21 14:43 tree and shrub pollen Allergy Verified 01/18/21 14:43 gabapentin AdvReac Unknown Dizziness Verified 01/18/21 14:43 Home Medications Medication Instructions Recorded Confirmed Type aspirin 81 mg tablet,delayed 81 mg PO DAILY tab 03/24/19 01/29/21 History release rosuvastatin 10 mg tablet (Crestor) 10 mg PO DAILY #90 tab 02/20/20 01/29/21 Rx metoprolol succinate 100 mg 100 mg PO DAILY #90 tab 04/12/20 01/29/21 Rx tablet,extended release 24 hr bendamustine 25 mg/mL intravenous See Rx Instructions IV MONTHLY ml 05/16/20 01/29/21 History solution valacyclovir 500 mg tablet 500 mg PO BID 05/16/20 01/29/21 History (Valtrex) albuterol sulfate 90 mcg/actuation 2 puff INHALATION Q6H PRN #18 g 10/10/20 01/29/21 Rx aerosol inhaler ipratropium 0.5 mg-albuterol 3 mg 3 ml INH Q6H PRN #180 ml 10/10/20 01/29/21 Rx (2.5 mg base)/3 mL nebulization soln mirtazapine 15 mg tablet (Remeron) 15 mg PO DAILY #30 tab 10/13/20 01/29/21 Rx promethazine-DM 6.25 mg-15 mg/5 mL 5 ml PO Q6H PRN #473 ml 10/13/20 01/29/21 Rx oral syrup ipratropium bromide 42 mcg (0.06 2 spray INTRANASAL TID #15 ml 11/22/20 01/29/21 Rx %) nasal spray tamsulosin 0.4 mg capsule (Flomax) 0.4 mg PO DAILY #30 cap 11/25/20 01/29/21 Rx fluticasone furoate 100 1 inh INHALATION DAILY #28 ea 12/15/20 01/29/21 Rx mcg-vilanterol 25 mcg/dose inhalation powder (Breo Ellipta) famotidine 20 mg tablet (Acid 20 mg PO DAILY 42 Days #42 tab 12/19/20 01/29/21 Rx Eyeglass [employer] (famotidine)) pantoprazole 40 mg tablet,delayed 40 mg PO DAILY #30 tab 12/19/20 01/29/21 Rx release azelastine 137 mcg (0.1 %) nasal 2 spray INTRANASAL BID #30 ml 01/17/21 01/29/21 Rx spray aerosol terbinafine HCl 250 mg tablet 250 mg PO DAILY #42 tab 01/18/21 01/29/21 Rx prednisone 20 mg tablet 20 mg PO DAILY 01/29/21 01/29/21 History Past Med/Surg History Medical History Arteriosclerosis of carotid artery Arteriosclerotic coronary artery disease Atrial premature complex Chronic back pain Cough Diverticulosis Generalized osteoarthritis of multiple sites Hemorrhoids History of paroxysmal supraventricular tachycardia History of tachycardia Immunoglobulin A deficiency Leukopenia Nephrolithiasis Neutropenia Pain in both lower extremities Palpitation Premature ventricular contractions Rib pain on left side Sacral region somatic dysfunction Seasonal allergies Segmental and somatic dysfunction of abdomen and other regions Segmental and somatic dysfunction of lumbar region Segmental and somatic dysfunction of rib cage Segmental and somatic dysfunction of thoracic region Segmental and somatic dysfunction of upper extremity Selective immunoglobulin M deficiency Sinusitis, chronic Supraventricular tachycardia Tick bite Ventricular tachycardia Surgical History S/P aortic valve replacement S/P CABG (coronary artery bypass graft) x 4 done at [place] 10/30/2013 S/P wisdom tooth extraction Family History Father Myocardial infarction Stroke Hypertension Heart disease Other Allergies No family history of adverse response to anesthesia No family history of bleeding disorder Denies family history of Ovarian cancer Prostate cancer Breast cancer Colorectal cancer Social History Smoking Status: Never smoker Hx Alcohol Use: Yes Hx Substance Use: No Preferred Language: Qatari marital status: Current Living Situation: Spouse current occupational status: retired Feels Safe at Home: Yes Childhood Exposure to Second-Hand Smoke: Yes Dental Care, Regularly: Yes Physical Activity Frequency: 5-6 Times per Week Seatbelt Use: always Sunscreen Use: Yes Review of Systems Review of Systems: Gen: Reports a fever, reports weakness/fatigue ENT: Denies congestion, throat pain, hearing loss Eyes: Denies acute visual changes CV: Denies CP, palpitations Pulmonary: Reports severe SOB with minimal exertion, increased 02 requirements, chronic productive cough GI: Denies N/V, diarrhea, constipation Neuro: Denies acute or unilateral weakness, acute gait impairment, headache or acute visual changes Musculoskeletal: Denies joint pain, inflammation Endocrine: Denies polydipsia, polyuria Skin: Denies acute rashes or ulcers Physical Exam Physical Exam: General: Thin, elderly M, AAO x 3, no distress ENT: No erythema or exudates, no thrush Eyes: PRITI, EOMI Head and neck: Normocephalic, atraumatic, No JVD, neck is supple. Chest/heart: Nontender, S1,2, RRR, no murmurs, no gallops Lungs: BL crackles to mid lungs, no wheezing Abdomen: Nontender, nondistended, BS+ Neuro: AAO x 3, speech is clear, no unilateral weakness or loss of sensation, coordination intact Musculoskeletal: No joint inflammation, muscle tenderness, FROM Skin: No acute rashes or ulcers Extremities: No clubbing, cyanosis, edema Results & Data Results & Data ([facility]) Vital Signs (Past 12 Hours) Vital Signs Temp Pulse Pulse Resp BP BP Pulse Ox 01/29/21 12:30 83 21 84/57 L 99 01/29/21 12:00 89 26 H 96/60 L 01/29/21 11:58 85 26 H 96/60 L 93 01/29/21 11:00 88 24 100 01/29/21 09:49 92 01/29/21 09:30 98.1 F 93 H 22 105/64 95 01/29/21 09:13 96 H 28 H 105/64 97 Code Status & VTE Plan VTE Prophylaxis Plan VTE Prophylaxis will be ordered: Yes PG Care Time/CCT Total # of Minutes Spent Total Time Spent with Patient: Total time spent is greater than 50% in coordination of care (as documented) at patient's floor/unit and/or counseling patient: Coding Level of Care Code 84491 Initial Inpt Care Lvl 3 Diagnoses Pneumonia J18.9 Laterality: bilateral Lung location: lower lobe of lung Pneumonia type: due to unspecified organism Pulmonary fibrosis, unspecified J84.10 (1) Pneumonia Laterality: bilateral Lung location: lower lobe of lung Pneumonia type: due to unspecified organism Qualified Code(s): J18.9 - Pneumonia, unspecified organism
[2021-01-29] MEDS ORDERED: SODIUM CHLORIDE 0.9% 1000ML 500 ML IV ONE (14:07)
[2021-01-29] MEDS ORDERED: ICU PROTOCOL FOR HYPERGLYCEMIA PRN (15:40)
--- NOTE | 2021-01-29 17:02 | Critical Care Consultation ---
Date of Consultation January 29, 2021 Assessment & Plan (1) Acute exacerbation of idiopathic pulmonary fibrosis: 80-year-old male with history of pulmonary fibrosis thought to be related to immunotherapy presenting to the hospital due to increasing shortness of breath and ultimately brought down to the ICU due to hypotension. Patient is mentating well, but does appear tachypneic. He has a lengthy discussion regarding goals of care. He relates that he would not want aggressive measures such as mechanical ventilation, intubation and CPR if his condition were to decline. I am going to consult palliative care to see the patient tomorrow morning. For the time being, we will treat with IV Solu-Medrol and antibiotics for an interstitial lung disease exacerbation with possible superimposed bacterial pneumonia. He received 1 L of crystalloid in the ER. We will aim to keep his mean arterial pressures above 65 mmHg. His mean arterial pressure is currently 80. We will send a lactate and procalcitonin. Blood cultures pending. Urinalysis will be sent. As discussed, we had a lengthy discussion regarding goals of care. His overall prognosis is quite poor given his advanced fibrotic lung disease and multiple myeloma. CRITICAL CARE TIME - I have personally spent 40 minutes of critical care time in the direct management of this patient. This is a life/limb threatening event. This includes time spent evaluating patient, direct bedside care, chart review, placing ord ers, interpretation of diagnostic studies, discussion with consultants, patient, and family members, as well as other required patient management activities. This time is exclusive of all separately billable procedures, and teaching time and separate from and in addition to any other critical care service time. (2) Pneumonia: (3) Hypoxia: (4) Cough: (5) GERD (gastroesophageal reflux disease): (6) Exertional shortness of breath: (7) Goals of care, counseling/discussion: History of Present Illness Reason for Consultation: Hypotension Attending Physician: Josh Sylvester MD History of Present Illness 80-year-old male with a history of multiple myeloma and IPF the hospital due to shortness of breath. He was found to be hypotensive in the ER. He received 1 L of crystalloids. He is followed by Dr. Denson in the pulmonary clinic and was most recently seen by him on 10/10/2020. It is determined that he has interstitial lung disease of unclear etiology. It is also felt that immunotherapy for multiple myeloma may be contributing to his interstitial lung disease. Patient is currently accompanied by his in the ICU room. He notes that over the last several days he has been having increasing shortness of breath with a nonproductive cough. He denies any fevers or chills. He normally uses 3 L of oxygen at baseline. He is being treated for reflux and sinusitis as an outpatient. He notes his symptoms became progressively worse proximally 2 to 3 years ago and he relates this to immunotherapy that he received for his multiple myeloma. He is still on chemotherapy and describes that the symptoms are worse after treatment which include fatigue and shortness of breath. He describes it takes him 20 minutes to get dressed in the morning even with his 's help. He has been losing approximately 10 pounds of weight every 30 days or so. His appetite is quite poor. He and his have 1 dog at home, paras [place]. 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 PFTs completed 11/08/2020 demonstrated a restrictive ventilatory defect with a FVC of 1.63 L - 43% (TLC of 57%) and diffusion impairment with a DLCO of 54%. Echocardiogram from 08/15/2019 demonstrated an EF of 50 to 55% with grade 1 diastolic dysfunction. Right ventricular systolic pressure was mildly elevated. He does appear to have progressive interstitial lung disease when looking back at his CT chest from 2016. Findings are very typical of UIP/IPF with honeycombing, subpleural reticulations and traction bronchiectasis seen more predominantly at the bases. The most recent CT chest from today does demonstrate somewhat more increased consolidative processes diffusely. Allergies Allergy/AdvReac Type Severity Reaction Status Date / Time house dust mite Allergy Verified 01/18/21 14:43 tree and shrub pollen Allergy Verified 01/18/21 14:43 gabapentin AdvReac Unknown Dizziness Verified 01/18/21 14:43 Home Medications Medication Instructions Recorded Confirmed Type aspirin 81 mg tablet,delayed 81 mg PO DAILY tab 03/24/19 01/29/21 History release rosuvastatin 10 mg tablet (Crestor) 10 mg PO DAILY #90 tab 02/20/20 01/29/21 Rx metoprolol succinate 100 mg 100 mg PO DAILY #90 tab 04/12/20 01/29/21 Rx tablet,extended release 24 hr bendamustine 25 mg/mL intravenous See Rx Instructions IV MONTHLY ml 11/09/20 07/25/21 History solution valacyclovir 500 mg tablet 500 mg PO BID 05/16/20 01/29/21 History (Valtrex) albuterol sulfate 90 mcg/actuation 2 puff INHALATION Q6H PRN #18 g 10/10/20 01/29/21 Rx aerosol inhaler ipratropium 0.5 mg-albuterol 3 mg 3 ml INH Q6H PRN #180 ml 10/10/20 01/29/21 Rx (2.5 mg base)/3 mL nebulization soln mirtazapine 15 mg tablet (Remeron) 15 mg PO DAILY #30 tab 10/13/20 01/29/21 Rx promethazine-DM 6.25 mg-15 mg/5 mL 5 ml PO Q6H PRN #473 ml 10/13/20 01/29/21 Rx oral syrup ipratropium bromide 42 mcg (0.06 2 spray INTRANASAL TID #15 ml 11/22/20 01/29/21 Rx %) nasal spray tamsulosin 0.4 mg capsule (Flomax) 0.4 mg PO DAILY #30 cap 11/25/20 01/29/21 Rx fluticasone furoate 100 1 inh INHALATION DAILY #28 ea 12/15/20 01/29/21 Rx mcg-vilanterol 25 mcg/dose inhalation powder (Breo Ellipta) famotidine 20 mg tablet (Acid 20 mg PO DAILY 42 Days #42 tab 12/19/20 01/29/21 Rx [employer] (famotidine)) pantoprazole 40 mg tablet,delayed 40 mg PO DAILY #30 tab 12/19/20 01/29/21 Rx release azelastine 137 mcg (0.1 %) nasal 2 spray INTRANASAL BID #30 ml 01/17/21 01/29/21 Rx spray aerosol terbinafine HCl 250 mg tablet 250 mg PO DAILY #42 tab 01/18/21 01/29/21 Rx prednisone 20 mg tablet 20 mg PO DAILY 01/29/21 01/29/21 History Patient History Medical History (Updated 01/29/21 @ 17:34 by Andrew Cerna MD) Acute exacerbation of idiopathic pulmonary fibrosis Arteriosclerosis of carotid artery Arteriosclerotic coronary artery disease Atrial premature complex Chronic back pain Cough Diverticulosis Generalized osteoarthritis of multiple sites Goals of care, counseling/discussion Hemorrhoids History of paroxysmal supraventricular tachycardia History of tachycardia Immunoglobulin A deficiency Leukopenia Nephrolithiasis Neutropenia Pain in both lower extremities Palpitation Premature ventricular contractions Rib pain on left side Sacral region somatic dysfunction Seasonal allergies Segmental and somatic dysfunction of abdomen and other regions Segmental and somatic dysfunction of lumbar region Segmental and somatic dysfunction of rib cage Segmental and somatic dysfunction of thoracic region Segmental and somatic dysfunction of upper extremity Selective immunoglobulin M deficiency Sinusitis, chronic Supraventricular tachycardia Tick bite Ventricular tachycardia Surgical History S/P aortic valve replacement S/P CABG (coronary artery bypass graft) x 4 done at [place] 10/30/2013 S/P wisdom tooth extraction Family History Father Myocardial infarction Stroke Hypertension Heart disease Other Allergies No family history of adverse response to anesthesia No family history of bleeding disorder Denies family history of Ovarian cancer Prostate cancer Breast cancer Colorectal cancer Social History Smoking Status: Never smoker Second Hand Exposure: No; Do You Dip or Chew Tobacco: No; Tobacco Cessation Education Requested by Patient: No Hx Alcohol Use: No Hx Substance Use: No Preferred Language: Grenadian Communication Ability: Effective County Manager Required: No Beliefs That Will Affect Care: None marital status: Current Living Situation: Spouse current occupational status: retired Other Information That Helps Us Care for You: No Feels Safe at Home: Yes Safety Concerns: Feels Safe At This Time Childhood Exposure to Second-Hand Smoke: Yes Dental Care, Regularly: Yes Physical Activity Frequency: 5-6 Times per Week Seatbelt Use: always Sunscreen Use: Yes Assistive Devices: Glasses and Hearing Aid - Bilateral Review of Systems Review of Systems: All systems reviewed & are unremarkable except as noted in HPI & below Physical Exam Physical Exam: Constitutional: Frail and thin appearing male in mild distress. Bitemporal wasting present. Eyes: Pupils are equal round and reactive to light. Conjunctivae are normal. Anicteric sclera. Ears nose, mouth and throat: Mallampati class 2. Normal posterior oropharynx. Uvula is midline. Neck: Trachea is midline. Visual inspection is normal. Respiratory: Bilateral Velcro crackles noted diffusely. Tachypnea. Cardiovascular: Regular rate and rhythm. No murmurs. No edema. Gastrointestinal: Normal bowel sounds, soft, nontender and nondistended. No hepatosplenomegaly noted. Musculoskeletal: No cyanosis. Patient is able to move all extremities. Strength is 3 out of 5 in the upper and lower extremities. Skin: No rashes, warm dry and intact. Neurologic: No obvious focal neurological deficits seen. Psychiatric: Alert and oriented x3 with a euthymic affect. Results & Data Results & Data ([facility]) Vital Signs (Past 12 Hours) Vital Signs Temp Pulse Pulse Resp BP BP Pulse Ox 01/29/21 16:29 85/60 L 01/29/21 15:22 79 22 91/58 L 100 01/29/21 15:16 84 23 66/34 L 01/29/21 15:00 82 29 H 113/65 01/29/21 14:32 89 22 102/41 L 01/29/21 14:00 77 25 H 91/53 L 97 01/29/21 13:37 83 26 H 90/60 L 100 01/29/21 13:30 85 27 H 90/60 L 98 01/29/21 13:00 82 28 H 91/59 L 100 01/29/21 12:30 83 21 84/57 L 99 01/29/21 12:00 89 26 H 96/60 L 01/29/21 11:58 85 26 H 96/60 L 93 01/29/21 11:00 88 24 100 01/29/21 09:49 92 01/29/21 09:30 98.1 F 93 H 22 105/64 95 01/29/21 09:13 96 H 28 H 105/64 97 Vital signs, labs and imaging personally reviewed Coding Level of Care Code Critical Care 1st 30-74 mins Diagnoses Acute exacerbation of idiopathic pulmonary fibrosis J84.112 Pneumonia J18.9 Laterality: bilateral Lung location: lower lobe of lung Pneumonia type: due to unspecified organism Hypoxia R09.02 Cough R05 GERD (gastroesophageal reflux disease) K21.9 Exertional shortness of breath R06.02 Goals of care, counseling/discussion Z71.89 Time Spent (min) 40 (1) Pneumonia Laterality: bilateral Lung location: lower lobe of lung Pneumonia type: due to unspecified organism Qualified Code(s): J18.9 - Pneumonia, unspecified organism
[2021-01-29] MEDS ORDERED: POLYETHYLENE (MIRALAX) 17 GM PACK PO PRN (17:08)
[2021-01-29] MEDS ORDERED: MAGNESIUM HYDROXIDE SUSP 30 ML UDC PO PRN (17:08)
[2021-01-29] MEDS ORDERED: ALUMINUM/MAGNESIUM SUSP 30 ML UDC PO PRN (17:08)
[2021-01-29] MEDS ORDERED: ALBUTEROL 0.083% NEBU SOLN 3 ML VIAL NEB PRN (17:08)
[2021-01-29] MEDS ORDERED: ACETAMINOPHEN 325 MG TAB PO PRN (17:08)
[2021-01-29] MEDS ORDERED: PIPERACILLIN/TAZOBACTAM 4.5 GM in DEXTROSE 5% 100 ML IV ONE (17:15)
[2021-01-29] MEDS: methylPREDNISolone 60 MG in SYRINGE 0 ML IV SCH ×2 (18:02→22:44)
[2021-01-29] MEDS: PIPERACILLIN/TAZOBACTAM 4.5 GM in DEXTROSE 5% 100 ML IV SCH (18:02)
[2021-01-29] MEDS: ENOXAPARIN INJ 40 MG/0.4 ML SYR SQ SCH (18:06)
[2021-01-29 18:25] LABS: Appearance Urine Clear (Clear); Bilirubin Urine Negative (Negative); Blood Urine Negative (Negative); Color Urine Yellow; Glucose Urine UA Negative (Negative); Ketones Urine Negative (Negative); Leukocyte Esterase Urine Negative (Negative); Nitrite Urine Negative (Negative); Protein Urine Negative (Negative); Specific Gravity Urine 1.032 (1.000-1.030); Urobilinogen Urine Negative (Negative); pH Urine 7.5 (4.5-7.5)
[2021-01-29] MEDS: ALBUT/IPRATROP 3MG/0.5MG NEB 3 ML VIAL NEB SCH (19:47)
[2021-01-29] MEDS: DOXYCYCLINE HYCLATE 100 MG in DEXTROSE 5% 100 ML IV SCH (20:26)
[2021-01-29] MEDS: valACYclovir HCL 500 MG TABLET PO SCH (21:05)
[2021-01-29] MEDS ORDERED: PIPERACILLIN/TAZOBACTAM 4.5 GM in DEXTROSE 5% 100 ML IV SCH (22:00)
[2021-01-30] MEDS: ALBUT/IPRATROP 3MG/0.5MG NEB 3 ML VIAL NEB SCH ×5 (00:06→19:02)
[2021-01-30] MEDS: PIPERACILLIN/TAZOBACTAM 4.5 GM in DEXTROSE 5% 100 ML IV SCH ×2 (01:55→09:07)
[2021-01-30 05:03] LABS: Hematocrit (blood only) 29.6 % (42-52); Hemoglobin 9.7 g/dL (14.0-18.0); Mean Corpuscular Hemoglobin 33.4 pg (25-34); Mean Corpuscular Hgb Conc 32.8 g/dL (32-36); Mean Corpuscular Volume 102.1 fL (80-100); RDW Coefficient of Variation 14.4 % (11.5-14.5); RDW Standard Deviation 54.1 fL (36.4-46.3); White Blood Count 14.15 K/uL (4.8-10.8)
[2021-01-30 05:16] LABS: Mean Platelet Volume 10.7 fL (7.4-10.4); Platelet Count 87 K/uL (130-400)
[2021-01-30 05:19] LABS: BUN Creatinine Ratio 25.2 (10-20); Calcium 8.2 mg/dl (8.5-10.1); Creatinine Clr Calc Pharmacy 72.2 ml/min; Est GFR (African American) 107.2 ml/min; Est GFR (Non-African American) 92.5 ml/min; Magnesium 1.9 mg/dl (1.8-2.4)
[2021-01-30 05:20] LABS: Dohle Bodies 1+; Immature Granulocytes # (auto) 0.09 K/uL (0.00-0.02); Immature Granulocytes % (auto) 0.6 %; Lymphocytes # (auto) 0.19 K/uL (1.2-3.4); Lymphocytes % (auto) 1.3 %; Monocytes # (auto) 0.26 K/uL (0.11-0.59); Monocytes % (auto) 1.8 %; Neutrophils # (auto) 13.61 K/uL (1.4-6.5); Neutrophils % (auto) 96.3 %
[2021-01-30 05:24] LABS: Phosphorus 4.1 mg/dl (2.5-4.9); Troponin I 0.031 ng/ml (0-0.045)
[2021-01-30] MEDS: DOXYCYCLINE HYCLATE 100 MG in DEXTROSE 5% 100 ML IV SCH (05:54)
[2021-01-30] MEDS: methylPREDNISolone 60 MG in SYRINGE 0 ML IV SCH ×4 (05:54→22:28)
[2021-01-30] MEDS: ASPIRIN 81 MG ECTAB PO SCH (08:02)
[2021-01-30] MEDS: FAMOTIDINE 20 MG TAB PO SCH (08:02)
[2021-01-30] MEDS: PANTOprazole 40 MG TAB PO SCH (08:02)
[2021-01-30] MEDS: TAMSULOSIN HCL 0.4 MG CAP PO SCH (08:03)
[2021-01-30] MEDS: MIRTAZAPINE TAB 15 MG TAB PO SCH (08:03)
[2021-01-30] MEDS: ROSUVASTATIN CALCIUM 10 MG TAB PO SCH (08:03)
[2021-01-30] MEDS: valACYclovir HCL 500 MG TABLET PO SCH ×2 (08:04→20:31)
--- NOTE | 2021-01-30 08:05 | XRay Report ---
XR chest 1V portable HISTORY: Shortness of breath. COMPARISON: Chest 01/29/2021. FINDINGS: Chronic interstitial thickening and low lung volumes consistent with pulmonary fibrosis. Th is is similar to the prior study. Old, healed left-sided rib fractures. There are poststernotomy navarro ges and a cardiac valve prosthesis. No pleural effusions. No pneumothorax. Hazy airspace opacities wi thin the right upper lobe and periphery of the bilateral mid lung zones has slightly progressed. This could represent progression of the pulmonary fibrosis or superimposed pneumonitis. IMPRESSION: Hazy airspace opacities within the right upper lobe and periphery of the bilateral mid lung zones has slightly progressed. This could represent progression of the pulmonary fibrosis or a superimposed pn eumonitis. ACT 112: Negative or not required by law. Electronically signed by: Power Schwartz M.D. 01/30/2021 8:04 AM
--- NOTE | 2021-01-30 08:12 | Electrocardiogram Report ---
Test Reason : Blood Pressure : / mmHG Vent. Rate : 092 BPM Atrial Rate : 092 BPM P-R Int : 136 ms QRS Dur : 098 ms QT Int : 348 ms P-R-T Axes : 034 019 017 degrees QTc Int : 430 ms Sinus rhythm with occasional Premature ventricular complexes Left atrial enlargement Diffuse Nonspecific T wave abnormality Nonspecific ST abnormality Lateral leads Abnormal ECG When compared with ECG of 08-SEP-2017 23:59, Premature ventricular complexes are now Present Incomplete right bundle branch block is no longer Present Confirmed by Rommel Morales ([id number]) on 01/30/2021 8:11:47 AM Referred By: Confirmed By:Rommel Morales
[2021-01-30] MEDS ORDERED: METOPROLOL SUCC 50MG EXT REL TAB PO SCH (09:00)
--- NOTE | 2021-01-30 09:46 | Critical Care Progress Note ---
Date of Service January 30, 2021 Assessment & Plan (1) Acute exacerbation of idiopathic pulmonary fibrosis: Plan: 80-year-old male with history of pulmonary fibrosis thought to be related to immunotherapy presenting to the hospital due to increasing shortness of breath and ultimately brought down to the ICU due to hypotension. Hypotension has resolved, at baseline 3 L oxygen still tachypneic and becomes tachycardic with minimal exertion. Continue IV steroids transition antibiotics to oral. Stable for downgrade out of ICU. (2) Pneumonia: (3) Hypoxia: (4) Cough: (5) GERD (gastroesophageal reflux disease): (6) Exertional shortness of breath: (7) Goals of care, counseling/discussion: Admission and Anticipated Discharge Date Admission Date: January 29, 2021 Subjective Feels that baseline, wears 3 L oxygen at home currently there desires to transition to home Physical Exam Physical Exam: General: Alert. nontoxic. Skin: Warm, dry, Head: Atraumatic Ears, nose, mouth and throat: airway patent Cardiovascular: Normal peripheral perfusion Respiratory: no respiratory distress Gastrointestinal: Non distended Musculoskeletal: No deformity Results & Data Results & Data ([facility]) Vital Signs (Past 12 Hours) Vital Signs Temp Pulse Pulse Resp BP Pulse Ox 01/30/21 08:11 112 H 32 H 124/73 90 01/30/21 08:00 112 H 01/30/21 07:41 104 H 24 107/59 L 96 01/30/21 07:15 87 22 98 01/30/21 07:12 84 35 H 105/63 93 01/30/21 06:11 81 25 H 106/67 98 01/30/21 05:41 85 125/72 99 01/30/21 04:53 36.4 C L 01/30/21 04:41 79 20 90/55 L 90 01/30/21 04:11 77 19 90/63 L 99 01/30/21 03:41 89 27 H 122/79 97 01/30/21 03:11 99 H 24 99/68 L 95 01/30/21 02:41 99 H 21 106/64 92 01/30/21 02:11 82 16 94/62 L 96 01/30/21 01:41 91 H 20 114/67 97 01/30/21 01:11 107 H 33 H 132/74 01/30/21 00:41 89 22 96/64 L 93 01/30/21 00:11 88 21 107/68 92 01/30/21 00:02 36.6 C 01/29/21 23:42 91 H 01/29/21 23:41 87 19 97/65 L 96 01/29/21 23:26 95 H 24 114/69 94 01/29/21 23:11 89 20 100/63 97 01/29/21 22:56 89 19 94/57 L 95 01/29/21 22:48 36.6 C 01/29/21 22:41 87 93/60 L 96 01/29/21 22:26 88 21 94/58 L 98 01/29/21 22:11 91 H 20 116/73 95 01/29/21 21:56 92 H 21 99/58 L 96 Coding Level of Care Code 19423 Subseq Hosp Care Lvl 2 Diagnoses Acute exacerbation of idiopathic pulmonary fibrosis J84.112 Pneumonia J18.9 Laterality: bilateral Lung location: lower lobe of lung Pneumonia type: due to unspecified organism Hypoxia R09.02 Cough R05 GERD (gastroesophageal reflux disease) K21.9 Exertional shortness of breath R06.02 Goals of care, counseling/discussion Z71.89 (1) Pneumonia Laterality: bilateral Lung location: lower lobe of lung Pneumonia type: due to unspecified organism Qualified Code(s): J18.9 - Pneumonia, unspecified organism
--- NOTE | 2021-01-30 09:54 | Pulmonology Progress Note ---
Date of Service January 30, 2021 Assessment & Plan (1) Acute exacerbation of idiopathic pulmonary fibrosis: Plan: 80-year-old known patient of mine who I follow in the clinic. Patient has known history of ILD which I think is most likely coming from the immunotherapy which he got for his multiple myeloma CT chest 01/29/2021 personally reviewed: Traction bronchiectasis with honeycombing again appreciated bilaterally especially on the right side Groundglass opacities are appreciated bilaterally, there is also some consolidative process in the periphery No mediastinal lymphadenopathy --Acute on chronic hypoxic respiratory failure On 3 L oxygen at home Multifactorial Worsening of underlying ILD with acute exacerbation in the differential Would like to continue with broad-spectrum antibiotics as well while the patient is getting steroids Patient has not been on steroids at home, the possibility of PJP is low. Fungi tell has been ordered. Patient is on Zosyn it could be falsely positive. But if it is negative it would rule out PJP COVID-19 NAAT negative 01/29/2021 Procalcitonin 0.26 BNP 1820 Continue with incentive spirometry and flutter valve Continue with O2 supplementation to keep oxygen saturation 88-92% --Multiple myeloma in relapse On chemotherapy Follows up at [facility] --DNR/DNI Overall prognosis is guarded. Plan: Incentive spirometry and flutter valve Continue with Solu-Medrol 60 mg every 6 hours for another 24 hours and then go down to 60 mg every 8 hours Follow-up influenza A & B Follow-up Legionella and mycoplasma IgM Please note the above document was generated using voice recognition software. It may contain grammatical, syntax or spelling errors.Any formal questions or concerns about the content, text or information contained within the body of this dictation should be directly addressed to the provider for clarification. (2) Pneumonia: Laterality: bilateral Lung location: lower lobe of lung Pneumonia type: due to unspecified organism Qualified Code(s): J18.9 - Pneumonia, unspecified organism (3) Hypoxia: (4) Cough: (5) GERD (gastroesophageal reflux disease): (6) Exertional shortness of breath: (7) Goals of care, counseling/discussion: Admission and Anticipated Discharge Date Admission Date: January 29, 2021 Subjective Patient seen and examined at bedside. No acute distress. Patient said that he is feeling better compared to when he came to the hospital. He does have cough and is able to bring it up with the help of flutter valve. He was saturating 90-91% on 3 L the cannula at time of examination. When he talks he did go down to 89%. Denies any chest pain, no headache, no nausea, no vomiting. Review of Systems Review of Systems: All systems reviewed & are unremarkable except as noted in Subjective Physical Exam Physical Exam: Constitutional: No acute distress, frail-appearing HEENT: EOMI, PERRLA Respiratory system: Decreased air entry bilaterally, no wheeze, no rhonchi, positive Velcro crackles bilateral lower lobes CVS: S1-S2 positive, no murmurs or gallops, tachycardia Abdomen: Soft, nontender, nondistended, positive bowel sounds x4 Extremities: +2 pulses bilaterally radialis/ dorsalis pedis, no cyanosis, no edema Neuro: Awake alert oriented x3 Psych: Normal mood and affect G/U: No Ponce Skin: no rashes, warm and dry Lymphatic: no cervical or axillary lymphadenopathy Results & Data Results & Data ([facility]) Vital Signs (Past 12 Hours) Vital Signs Temp Pulse Pulse Resp BP Pulse Ox 01/30/21 08:11 112 H 32 H 124/73 90 01/30/21 08:00 112 H 01/30/21 07:41 104 H 24 107/59 L 96 01/30/21 07:15 87 22 98 01/30/21 07:12 84 35 H 105/63 93 01/30/21 06:11 81 25 H 106/67 98 01/30/21 05:41 85 125/72 99 01/30/21 04:53 36.4 C L 01/30/21 04:41 79 20 90/55 L 90 01/30/21 04:11 77 19 90/63 L 99 01/30/21 03:41 89 27 H 122/79 97 01/30/21 03:11 99 H 24 99/68 L 95 01/30/21 02:41 99 H 21 106/64 92 01/30/21 02:11 82 16 94/62 L 96 01/30/21 01:41 91 H 20 114/67 97 01/30/21 01:11 107 H 33 H 132/74 01/30/21 00:41 89 22 96/64 L 93 01/30/21 00:11 88 21 107/68 92 07/26/21 00:02 36.6 C 01/29/21 23:42 91 H 01/29/21 23:41 87 19 97/65 L 96 01/29/21 23:26 95 H 24 114/69 94 01/29/21 23:11 89 20 100/63 97 01/29/21 22:56 89 19 94/57 L 95 01/29/21 22:48 36.6 C 01/29/21 22:41 87 93/60 L 96 01/29/21 22:26 88 21 94/58 L 98 01/29/21 22:11 91 H 20 116/73 95 01/29/21 21:56 92 H 21 99/58 L 96 01/30/21 04:49 01/30/21 04:49 PG Care Time/CCT Total # of Minutes Spent Total Time Spent with Patient: Total time spent is greater than 50% in coordination of care (as documented) at patient's floor/unit and/or counseling patient: Coding [place] [address] Subseq Hosp Care Lvl 3 Patient Type Established Diagnoses Acute exacerbation of idiopathic pulmonary fibrosis J84.112 Pneumonia J18.9 Laterality: bilateral Lung location: lower lobe of lung Pneumonia type: due to unspecified organism Hypoxia R09.02 Cough R05 GERD (gastroesophageal reflux disease) K21.9 Exertional shortness of breath R06.02 Goals of care, counseling/discussion Z71.89
[2021-01-30] MEDS ORDERED: FLUTICASONE/VILANTEROL 100/25MCG 14 PUFFS/INHALER INH ONE (10:00)
[2021-01-30] MEDS ORDERED: PHARMACY GLYCEMIC MGMT CONSULT PRN (10:08)
[2021-01-30] MEDS ORDERED: GLUCAGON FOR INJ 1 MG VIAL IM PRN (10:15)
[2021-01-30] MEDS ORDERED: GLUCOSE 40% GEL 15 GM TUBE PO PRN (10:15)
[2021-01-30] MEDS ORDERED: CARBOHYDRATES FOR HYPOGLYCEMIA PO PRN (10:15)
[2021-01-30] MEDS ORDERED: DEXTROSE 50% 50 ML SYRINGE IV PRN (10:15)
[2021-01-30] MEDS ORDERED: GLUCOSE 10 TABS/TUBE PO PRN (10:15)
--- NOTE | 2021-01-30 11:05 | Palliative Care Consultation ---
Date of Consultation January 30, 2021 Assessment & Plan (1) Palliative care encounter: Mr. Chan is an 80 year old male who presented to the [facility] from home after experiencing increasing shortness of breath and hypotension. He has pulmonary fibrosis, which appears to be related to the immunotherapy her receives for his Multiple Myeloma treatment, which he receives treatment by Dr. James through [facility] for this. The patient has had tachypnia and tachycardia. Pulmonary Medicine was able to have a conversation with him and he was clear that he would not want aggressive measures such as mechanical ventilation, intubation and CPR if his condition were to decline. Palliative Medicine was consulted to discuss further goals of care. Dr. Bennett and myself met with Mr. Chan. When we entered the room he had just pulled out a PIV related to some intermittent confusion as he mentioned he was going to 'leave' and go home. He was quickly reoriented and able to hold a meaningful and oriented conversation. 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, but also having experience and a minor degree in Gerontology, specifically knowing detailed information regarding Palliative Care. He said that he lives at home with his , Urszula, in their [address] historic farm house that was built in the mid 1799's. He said they used to have 300 acres, but have paired down to a mere two acres. He said that him and his are both still driving and independent with their ADL's. He said that he would like to continue with Immunotherapy, despite how it does wear him down. He said he has an appointment with Dr. James in mid February and will discuss further with her about discontinuing it. He said that talking about is a routine conversation between him and his , Urszula and she is well aware of his wishes that he would not want life sust aining measures, including CPR, intubation or feeding tube placement. He did say that as things progress, he would like to remain at his home as long as possible with caregivers and altering equipment that could maintain quality and dignity of life i.e. chair lift, etc. Discussed with case management that a caregiver list would be helpful prior to discharge. I did offer to him to continue to see Palliative Medicine upon discharge, and he politely declined, indicating that he has a significant support system and while he talks about often, he will know when it is time for Hospice and does not want to add another appointment into his routine as he feels it could affect his quality of life, something he is trying to preserve as long as he can, which is respectful. Palliative will follow peripherally, please advise if we can be of further assistance during this admission. (2) Hypoxia: Pt was hypoxic on admission, remains on 4 LNC. Tachypnea has resolved related to ILD If persistent in the future, Roxanol could be helpful for air hunger. (3) Weakness: Overall decline. On Immunotherapy for Multiple Myeloma. (4) Lack of appetite: Eating some meals, overall decline. (5) Cachexia: Appetite Stimulant Supplement could be warranted; however, clotting risk to be considered. Patient not interested at this time. History of Present Illness Reason for Consultation: Goals of care Requesting Physician: Dr. Dukes Attending Physician: Gala Liao MD History of Present Illness Mr. Chan is an 80 year old male who presented to the [facility] from home after experiencing increasing shortness of breath and hypotension. He has pulmonary fibrosis, which appears to be related to the immunotherapy her receives for his Multiple Myeloma treatment, which he receives treatment by Dr. James through [facility] for this. The patient has had tachypnia and tachycardia. Pulmonary Medicine was able to have a conversation with him and he was clear that he would not want aggressive measures such as mechanical ventilation, intubation and CPR if his condition were to decline. Palliative Medicine was consulted to discuss further goals of care. Please see A/P for further details. Thanks for involving Palliative Medicine with this patient. Allergies Allergy/AdvReac Type Severity Reaction Status Date / Time house dust mite Allergy Verified 01/18/21 14:43 tree and shrub pollen Allergy Verified 01/18/21 14:43 gabapentin AdvReac Unknown Dizziness Verified 01/18/21 14:43 Home Medications Medication Instructions Recorded Confirmed Type aspirin 81 mg tablet,delayed 81 mg PO DAILY tab 03/24/19 01/29/21 History release rosuvastatin 10 mg tablet (Crestor) 10 mg PO DAILY #90 tab 02/20/20 01/29/21 Rx metoprolol succinate 100 mg 100 mg PO DAILY #90 tab 04/12/20 01/29/21 Rx tablet,extended release 24 hr bendamustine 25 mg/mL intravenous See Rx Instructions IV MONTHLY ml 05/16/20 01/29/21 History solution valacyclovir 500 mg tablet 500 mg PO BID 05/16/20 01/29/21 History (Valtrex) albuterol sulfate 90 mcg/actuation 2 puff INHALATION Q6H PRN #18 g 10/10/20 01/29/21 Rx aerosol inhaler ipratropium 0.5 mg-albuterol 3 mg 3 ml INH Q6H PRN #180 ml 10/10/20 01/29/21 Rx (2.5 mg base)/3 mL nebulization soln mirtazapine 15 mg tablet (Remeron) 15 mg PO DAILY #30 tab 10/13/20 01/29/21 Rx promethazine-DM 6.25 mg-15 mg/5 mL 5 ml PO Q6H PRN #473 ml 10/13/20 01/29/21 Rx oral syrup ipratropium bromide 42 mcg (0.06 2 spray INTRANASAL TID #15 ml 11/22/20 01/29/21 Rx %) nasal spray tamsulosin 0.4 mg capsule (Flomax) 0.4 mg PO DAILY #30 cap 11/25/20 01/29/21 Rx fluticasone furoate 100 1 inh INHALATION DAILY #28 ea 12/15/20 01/29/21 Rx mcg-vilanterol 25 mcg/dose inhalation powder (Breo Ellipta) famotidine 20 mg tablet (Acid 20 mg PO DAILY 42 Days #42 tab 12/19/20 01/29/21 Rx Beaming Inspector (famotidine)) pantoprazole 40 mg tablet,delayed 40 mg PO DAILY #30 tab 12/19/20 01/29/21 Rx release azelastine 137 mcg (0.1 %) nasal 2 spray INTRANASAL BID #30 ml 01/17/21 01/29/21 Rx spray aerosol terbinafine HCl 250 mg tablet 250 mg PO DAILY #42 tab 01/18/21 01/29/21 Rx prednisone 20 mg tablet 20 mg PO DAILY 01/29/21 01/29/21 History Patient History Medical History (Updated 01/30/21 @ 15:01 by DEISY Melissa) Acute exacerbation of idiopathic pulmonary fibrosis Arteriosclerosis of carotid artery Arteriosclerotic coronary artery disease Atrial premature complex Cachexia Chronic back pain Cough Diverticulosis Generalized osteoarthritis of multiple sites Goals of care, counseling/discussion Hemorrhoids History of paroxysmal supraventricular tachycardia History of tachycardia Immunoglobulin A deficiency Lack of appetite Leukopenia Nephrolithiasis Neutropenia Pain in both lower extremities Palliative care encounter Palpitation Premature ventricular contractions Rib pain on left side Sacral region somatic dysfunction Seasonal allergies Segmental and somatic dysfunction of abdomen and other regions Segmental and somatic dysfunction of lumbar region Segmental and somatic dysfunction of rib cage Segmental and somatic dysfunction of thoracic region Segmental and somatic dysfunction of upper extremity Selective immunoglobulin M deficiency Sinusitis, chronic Supraventricular tachycardia Tick bite Ventricular tachycardia Weakness Surgical History S/P aortic valve replacement S/P CABG (coronary artery bypass graft) x 4 done at [facility] 10/30/2013 S/P wisdom tooth extraction Family History Father Myocardial infarction Stroke Hypertension Heart disease Other Allergies No family history of adverse response to anesthesia No family history of bleeding disorder Denies family history of Ovarian cancer Prostate cancer Breast cancer Colorectal cancer Social History Smoking Status: Never smoker Second Hand Exposure: No; Do You Dip or Chew Tobacco: No; Tobacco Cessation Education Requested by Patient: No Hx Alcohol Use: No Hx Substance Use: No Preferred Language: Uzbek Communication Ability: Effective 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: No Beliefs That Will Affect Care: None marital status: Current Living Situation: Spouse current occupational status: retired Other Information That Helps Us Care for You: No Feels Safe at Home: Yes Safety Concerns: Feels Safe At This Time Childhood Exposure to Second-Hand Smoke: Yes Dental Care, Regularly: Yes Physical Activity Frequency: 5-6 Times per Week Seatbelt Use: always Sunscreen Use: Yes Assistive Devices: Glasses and Hearing Aid - Bilateral Review of Systems Review of Systems: Dixon System Assessment Scale: Pain: 0/3 Shortness of breath: 1/3 Tiredness: 0/3 Lack of Appetite: 2/3 Drowsiness: 0/3 Palliative Performance Scale: 40% Physical Exam Constitutional: + cachectic and + frail appearing ENMT: Mouth: + dry oral mucous membranes Respiratory: normal respiratory effort, + cough and + tachypneic Cardiovascular: Rate/Rhythm: regular rate and regular rhythm Extremities: normal capillary refill; no edema Gastrointestinal (Abdomen): Inspection/Auscultation: abdomen normal to inspection Psychiatric: Orientation: alert and oriented x 3 Insight: good insight Judgement: good judgement Results & Data ([facility]) Vital Signs (Past 12 Hours) Vital Signs Temp Pulse Pulse Resp BP Pulse Ox 01/30/21 08:11 112 H 32 H 124/73 90 01/30/21 08:00 112 H 01/30/21 07:41 104 H 24 107/59 L 96 01/30/21 07:15 87 22 98 01/30/21 07:12 84 35 H 105/63 93 01/30/21 06:11 81 25 H 106/67 98 01/30/21 05:41 85 125/72 99 01/30/21 04:53 36.4 C L 01/30/21 04:41 79 20 90/55 L 90 01/30/21 04:11 77 19 90/63 L 99 01/30/21 03:41 89 27 H 122/79 97 01/30/21 03:11 99 H 24 99/68 L 95 01/30/21 02:41 99 H 21 106/64 92 01/30/21 02:11 82 16 94/62 L 96 01/30/21 01:41 91 H 20 114/67 97 01/30/21 01:11 107 H 33 H 132/74 01/30/21 00:41 89 22 96/64 L 93 01/30/21 00:11 88 21 107/68 92 01/30/21 00:02 36.6 C 01/29/21 23:42 91 H 01/29/21 23:41 87 19 97/65 L 96 01/29/21 23:26 95 H 24 114/69 94 01/29/21 23:11 89 20 100/63 97 PG Care Time/CCT Total # of Minutes Spent Total Time Spent with Patient: Total time spent is greater than 50% in coordination of care (as documented) at patient's floor/unit and/or counseling patient: 70 minutes with > 50% of that time spent assessing the patient, discussing goals of care with the patient and collaborating with the IDT Coding Level of Care Code 88777 Initial Inpt Care Lvl 3 Diagnoses Palliative care encounter Z51.5 Hypoxia R09.02 Weakness R53.1 Lack of appetite R63.0 Cachexia R64 Time Spent (min) 70
--- NOTE | 2021-01-30 11:24 | Pharmacy Report ---
Pharmacy Glycemic Short Note 2 - Date of Service January 30, 2021 - Glycemic Short BSG Results (Last 24 hours): 01/30/21 01/30/21 01/30/21 00:00 04:49 10:46 Glucose 159 H POC Glucose 154 H 172 H OUTPATIENT ANTIDIABETIC REGIMEN: * N/A; takes Prednisone 20mg daily [employer] * A1c = 5.6% 01/19/21 ASSESSMENT: * Patient admitted for exacerbation of interstitial pulmonary fibrosis * Auto consult for glycemic control triggered by 2 consecutive BSGs > 140 * Patient is likely experiencing stress-induced / steroid-induced hyperglycemia (receiving Solu-medrol 60mg IV Q 6 hours) * Will initiated Novolog correctional and prandial insulin at this time based upon weight and "moderate" stress level given BSGs remain less than 180 * No basal insulin will be provided unless fasting elevation observed tomorrow PLAN FOR INPATIENT GLYCEMIC CONTROL: * Basal insulin * None at this time * Bolus insulin * NovoLog per scale ACHS or Q6hrs while NPO * Goal Range: Low 110 mg/dL - High 140 mg/dL * Correction Factor: 30 mg/dL/unit * Nutritional / Prandial insulin per carb ratio of 1 unit per 15 grams CHO consumed
[2021-01-30] MEDS: INSULIN ASPART 100 UNITS/ML 3 ML PEN SC SCH ×4 (12:26→23:52)
[2021-01-30 15:35] LABS: Influenza A virus by PCR Negative (Negative); Influenza B virus by PCR Negative (Negative)
[2021-01-30] MEDS: ENOXAPARIN INJ 40 MG/0.4 ML SYR SQ SCH (17:07)
[2021-01-30] MEDS: AMOXICILLIN/CLAVULANATE 875 MG TAB PO SCH (20:31)
[2021-01-30] MEDS: DOXYCYCLINE HYCLATE 100 MG CAP PO SCH (20:31)
[2021-01-30] MEDS: INSULIN GLARGINE SOLOSTAR 100 UNITS/ML 3 ML PEN SC SCH (20:37)
--- NOTE | 2021-01-30 21:52 | Hospitalist Progress Note ---
Date of Service January 30, 2021 Assessment & Plan (1) Pneumonia: Plan: 80 y/o M Hx HTN, HLD, GERD, CAD, multiple myeloma, ILD - home 02. Presents with progressive SOB. He has become severely short of breath over the past few days with minimal exertion and has had increasing oxygen requirements. He reports a fever of 100.1 the prior evening. He was markedly hypoxic on arrival to the ER. He has a persistent productive cough recently, which he attributes to GERD. Initial labs were notable for leukocytosis, anemia, protein malnutrition, an elevated dimer and a troponin of .048. A CTA was negative for PE but did demonstrate ILD and BL basilar opacities consistent with PNM. An EKG did not support ischemia. The pt become hypotensive in the ER with a BP of 90/60 which improved with IVF. For pneumonia- the pt was initially placed on Zosyn and Doxy to cover possible aspiration and atypical PNM as well. He was transferred to the ICU on the first night of admission due to hypotension. Also with acute on chronic respiratory failure with hypoxia-this is improved and he is down to 4 L nasal cannula. Baseline is 3 L nasal cannula continuously at home. Blood pressures improved with crystalloid fluids and he did not require vasopressors. He is stable for downgrade out of the ICU MRSA nasal swab was negative, procalcitonin 0.26 He remains afebrile Covid-19 test negative Leukocytosis has improved Blood pressures are now improved but at times remain low-he did receive his Toprol-XL 100 mg today He is on chronic prednisone for the last month at 20 mg daily -Antibiotics changed today to Augmentin and doxycycline both p.o. -Appreciate pulmonology consultation -Fungitell is pending but may be falsely positive in the setting of Zosyn use -Legionella urine antigen and mycoplasma IgM still pending -Follow blood cultures-no growth to date -Continue bronchodilators and flutter valve -Continue IV steroids 60 mg IV every 6 hours for today and then down to IV every 8 hours tomorrow as per pulmonology (2) Pulmonary fibrosis, unspecified: Plan: Thought to be secondary to his bendamustine therapy for his multiple myeloma Follows with pulmonary -Treatment as above (3) CAD (coronary artery disease): Plan: CAD and elevated trop - trop is likely demand-related as he does not have an EKG or symptoms consistent with acute ischemia. Serial troponin trended downward We will cont ASA, statin and a beta federico if tolerated. With a history of CABG (4) Cachexia: Plan: Improving now with prednisone 20 mg daily for the last month Weight has stabilized Appreciate dietary consultation-have liberalized diet to regular (5) Hypoxia: Plan: Acute on chronic respiratory failure with hypoxia secondary to pneumonia and ILD exacerbation as above Continue steroids Continue supplemental O2 Baseline is 3 L nasal cannula (6) GERD (gastroesophageal reflux disease): Plan: Continue PPI (7) Restrictive lung disease: Plan: As above (8) S/P AVR (aortic valve replacement): Plan: History of bioprosthetic aortic valve (9) Dyslipidemia: Plan: Continue statin (10) Anemia: Plan: - macrocytic and may be worsening - likely anemia of chronic disease but could be secondary to chemotherapy B12 here is normal Follow CBC (11) Multiple myeloma: Plan: Currently receiving bendamustine every 4 weeks (12) Hyperglycemia: Plan: With hyperglycemia Insulin sliding scale Lantus Hemoglobin A1c in normal limits Secondary to steroids (13) DVT prophylaxis: Plan: Lovenox SQ Disposition-continued stay for downgrade from ICU to PCU Admission and Anticipated Discharge Date Admission Date: January 29, 2021 Subjective Patient reports feeling better than when he came in. Still having some episodes of hypotension today but did receive metoprolol 100 mg this morning. He is still short of breath with exertion and is on 4 L nasal cannula which is higher than his usual 3 L at home. He is moving his bowels and feels his appetite has improved. He reports that he started on prednisone 20 mg daily about a month ago. Telemetry with sinus rhythm with normal rates and PVCs. Review of Systems Review of Systems: All systems reviewed & are unremarkable except as noted in HPI & below Physical Exam Constitutional: + thin; no acute distress Eyes: PERRL, conjunctivae normal, anicteric sclerae ENMT: external ear and nose normal, oropharynx normal Neck: trachea midline, no thyromegaly Respiratory: normal respiratory effort; no cough Auscultation: + crackles (At bases bilaterally); no rhonchi and no wheezes Cardiovascular: RRR, no murmur, no edema Chest (Breasts): Chest: + abnormal inspection of chest (Mid sternotomy incisional scar present) Gastrointestinal (Abdomen): normal bowel sounds, soft, nontender, no hepatosp lenomegaly Musculoskeletal: Extremities: extremities normal to inspection; no cyanosis and no clubbing Skin: no rashes, warm and dry Neurologic: moves all extremities and awake; no focal motor deficits Psychiatric: A+Ox3, euthymic affect Lymphatic: no lymphedema Results & Data Results & Data ([facility]) Vital Signs (Past 12 Hours) Vital Signs Temp Pulse Pulse Resp BP Pulse Ox 01/30/21 19:40 36.5 C 01/30/21 19:36 84 23 98/62 L 100 01/30/21 19:06 84 25 H 94/63 L 100 01/30/21 19:03 83 22 97 01/30/21 18:35 82 24 104/60 99 01/30/21 18:03 86 23 65/37 L 95 01/30/21 17:32 87 22 109/61 97 01/30/21 17:03 83 25 H 84/54 L 100 01/30/21 16:34 94 H 27 H 87/61 L 91 01/30/21 16:11 85 30 H 73/45 L 100 01/30/21 15:41 93 H 27 H 86/59 L 98 01/30/21 15:33 36.5 C 01/30/21 15:23 94 H 24 97 01/30/21 15:11 90 26 H 88/59 L 100 01/30/21 14:41 96 H 27 H 93/58 L 96 01/30/21 14:11 101 H 25 H 103/66 97 01/30/21 13:41 90 28 H 116/68 95 01/30/21 13:11 81 28 H 86/53 L 100 01/30/21 12:41 93 H 28 H 92/60 L 100 01/30/21 12:11 105 H 27 H 102/67 94 01/30/21 11:41 84 22 92/58 L 100 01/30/21 11:04 85 28 H 100 01/30/21 10:11 120/78 Laboratory Results 01/30/21 01/30/21 01/30/21 Range/Units 20:27 16:24 15:07 WBC (4.8-10.8) K/uL RBC (4.7-6.1) M/uL Hgb (14.0-18.0) g/dL Hct (42-52) % MCV (80-100) fL MCH (25-34) pg MCHC (32-36) g/dL RDW Std Deviation (36.4-46.3) fL RDW Coeff of Renee (11.5-14.5) % Plt Count (130-400) K/uL MPV (7.4-10.4) fL Immature Gran % (Auto) % Neut % (Auto) % Lymph % (Auto) % [place] % (Auto) % Eos % (Auto) % Baso % (Auto) % Neut # (Auto) (1.4-6.5) K/uL Lymph # (Auto) (1.2-3.4) K/uL [place] # (Auto) (0.11-0.59) K/uL Eos # (Auto) (0-0.5) K/uL Baso # (Auto) (0-0.2) K/uL Immature Gran # (Auto) (0.00-0.02) K/uL Dohle Bodies Sodium (136-145) mmol/L Potassium (3.5-5.1) mmol/L Chloride (98-107) mmol/L Carbon Dioxide (21-32) mmol/L Anion Gap (3-11) BUN (7-18) mg/dl Creatinine (0.6-1.4) mg/dl Est Cr Clr Drug Dosing ml/min Est GFR ( Amer) ml/min Est GFR (Non-Af Amer) ml/min BUN/Creatinine Ratio (10-20) Glucose (70-99) mg/dl POC Glucose 146 H 248 H (70-99) mg/dl Calcium (8.5-10.1) mg/dl Phosphorus (2.5-4.9) mg/dl Magnesium (1.8-2.4) mg/dl Troponin I (0-0.045) ng/ml Vitamin B12 (193-986) pg/ml Procalcitonin (0-0.5) ng/ml Influ A Molecular Assay Negative (Negative) Influ B Molecular Assay Negative (Negative) Mycoplasma pneumon IgM Beta-(1,3)-D-Glucan B-(1,3)-D-Glucan Intrp 01/30/21 01/30/21 01/30/21 Range/Units 10:46 04:49 04:49 WBC (4.8-10.8) K/uL RBC (4.7-6.1) M/uL Hgb (14.0-18.0) g/dL Hct (42-52) % MCV (80-100) fL MCH (25-34) pg MCHC (32-36) g/dL RDW Std Deviation (36.4-46.3) fL RDW Coeff of Renee (11.5-14.5) % Plt Count (130-400) K/uL MPV (7.4-10.4) fL Immature Gran % (Auto) % Neut % (Auto) % Lymph % (Auto) % [place] % (Auto) % Eos % (Auto) % Baso % (Auto) % Neut # (Auto) (1.4-6.5) K/uL Lymph # (Auto) (1.2-3.4) K/uL [place] # (Auto) (0.11-0.59) K/uL Eos # (Auto) (0-0.5) K/uL Baso # (Auto) (0-0.2) K/uL Immature Gran # (Auto) (0.00-0.02) K/uL Dohle Bodies Sodium (136-145) mmol/L Potassium (3.5-5.1) mmol/L Chloride (98-107) mmol/L Carbon Dioxide (21-32) mmol/L Anion Gap (3-11) BUN (7-18) mg/dl Creatinine (0.6-1.4) mg/dl Est Cr Clr Drug Dosing ml/min Est GFR ( Amer) ml/min Est GFR (Non-Af Amer) ml/min BUN/Creatinine Ratio (10-20) Glucose (70-99) mg/dl POC Glucose 172 H (70-99) mg/dl Calcium (8.5-10.1) mg/dl Phosphorus (2.5-4.9) mg/dl Magnesium (1.8-2.4) mg/dl Troponin I (0-0.045) ng/ml Vitamin B12 > 2000 H (193-986) pg/ml Procalcitonin 0.26 (0-0.5) ng/ml Influ A Molecular Assay (Negative) Influ B Molecular Assay (Negative) Mycoplasma pneumon IgM Beta-(1,3)-D-Glucan B-(1,3)-D-Glucan Intrp 01/30/21 01/30/21 01/30/21 Range/Units 04:49 04:49 00:00 WBC 14.15 H (4.8-10.8) K/uL RBC 2.90 L (4.7-6.1) M/uL Hgb 9.7 L (14.0-18.0) g/dL Hct 29.6 L (42-52) % MCV 102.1 H (80-100) fL MCH 33.4 (25-34) pg MCHC 32.8 (32-36) g/dL RDW Std Deviation 54.1 H (36.4-46.3) fL RDW Coeff of Renee 14.4 (11.5-14.5) % Plt Count 87 L (130-400) K/uL MPV 10.7 H (7.4-10.4) fL Immature Gran % (Auto) 0.6 % Neut % (Auto) 96.3 % Lymph % (Auto) 1.3 % [place] % (Auto) 1.8 % Eos % (Auto) 0.0 % Baso % (Auto) 0.0 % Neut # (Auto) 13.61 H (1.4-6.5) K/uL Lymph # (Auto) 0.19 L (1.2-3.4) K/uL [place] # (Auto) 0.26 (0.11-0.59) K/uL Eos # (Auto) 0.00 (0-0.5) K/uL Baso # (Auto) 0.00 (0-0.2) K/uL Immature Gran # (Auto) 0.09 H (0.00-0.02) K/uL Dohle Bodies 1+ Sodium 138 (136-145) mmol/L Potassium 4.0 (3.5-5.1) mmol/L Chloride 101 (98-107) mmol/L Carbon Dioxide 35 H (21-32) mmol/L Anion Gap 2.0 L (3-11) BUN 16 (7-18) mg/dl Creatinine 0.64 (0.6-1.4) mg/dl Est Cr Clr Drug Dosing 72.2 ml/min Est GFR ( Amer) 107.2 ml/min Est GFR (Non-Af Amer) 92.5 ml/min BUN/Creatinine Ratio 25.2 H (10-20) Glucose 159 H (70-99) mg/dl POC Glucose 154 H (70-99) mg/dl Calcium 8.2 L (8.5-10.1) mg/dl Phosphorus 4.1 (2.5-4.9) mg/dl Magnesium 1.9 (1.8-2.4) mg/dl Troponin I 0.031 (0-0.045) ng/ml Vitamin B12 (193-986) pg/ml Procalcitonin (0-0.5) ng/ml Influ A Molecular Assay (Negative) Influ B Molecular Assay (Negative) Mycoplasma pneumon IgM Beta-(1,3)-D-Glucan B-(1,3)-D-Glucan Intrp 01/29/21 01/29/21 Range/Units 23:25 17:29 WBC (4.8-10.8) K/uL RBC (4.7-6.1) M/uL Hgb (14.0-18.0) g/dL Hct (42-52) % MCV (80-100) fL MCH (25-34) pg MCHC (32-36) g/dL RDW Std Deviation (36.4-46.3) fL RDW Coeff of Renee (11.5-14.5) % Plt Count (130-400) K/uL MPV (7.4-10.4) fL Immature Gran % (Auto) % Neut % (Auto) % Lymph % (Auto) % [place] % (Auto) % Eos % (Auto) % Baso % (Auto) % Neut # (Auto) (1.4-6.5) K/uL Lymph # (Auto) (1.2-3.4) K/uL [place] # (Auto) (0.11-0.59) K/uL Eos # (Auto) (0-0.5) K/uL Baso # (Auto) (0-0.2) K/uL Immature Gran # (Auto) (0.00-0.02) K/uL Dohle Bodies Sodium (136-145) mmol/L Potassium (3.5-5.1) mmol/L Chloride (98-107) mmol/L Carbon Dioxide (21-32) mmol/L Anion Gap (3-11) BUN (7-18) mg/dl Creatinine (0.6-1.4) mg/dl Est Cr Clr Drug Dosing ml/min Est GFR ( Amer) ml/min Est GFR (Non-Af Amer) ml/min BUN/Creatinine Ratio (10-20) Glucose (70-99) mg/dl POC Glucose (70-99) mg/dl Calcium (8.5-10.1) mg/dl Phosphorus (2.5-4.9) mg/dl Magnesium (1.8-2.4) mg/dl Troponin I 0.042 (0-0.045) ng/ml Vitamin B12 (193-986) pg/ml Procalcitonin (0-0.5) ng/ml Influ A Molecular Assay (Negative) Influ B Molecular Assay (Negative) Mycoplasma pneumon IgM Pending Beta-(1,3)-D-Glucan Pending B-(1,3)-D-Glucan Intrp Pending Diagnostic Findings Chest X-Ray 01/30/21 07:00 XR chest 1V portable HISTORY: Shortness of breath. COMPARISON: Chest 01/29/2021. FINDINGS: Chronic interstitial thickening and low lung volumes consistent with pulmonary fibrosis. This is similar to the prior study. Old, healed left-sided rib fractures. There are poststernotomy changes and a cardiac valve prosthesis. No pleural effusions. No pneumothorax. Hazy airspace opacities within the right upper lobe and periphery of the bilateral mid lung zones has slightly progressed. This could represent progression of the pulmonary fibrosis or superimposed pneumonitis. IMPRESSION: Hazy airspace opacities within the right upper lobe and periphery of the bilateral mid lung zones has slightly progressed. This could represent progression of the pulmonary fibrosis or a superimposed pneumonitis. ACT 112: Negative or not required by law. Electronically signed by: Power Schwartz M.D. 01/30/2021 8:04 AM PG Care Time/CCT Total # of Minutes Spent Total Time Spent with Patient: Total time spent is greater than 50% in coordination of care (as documented) at patient's floor/unit and/or counseling patient: Coding Level of Care Code 31907 Subseq Hosp Care Lvl 3 Diagnoses Pneumonia J18.9 Laterality: bilateral Lung location: lower lobe of lung Pneumonia type: due to unspecified organism Pulmonary fibrosis, unspecified J84.10 Cachexia R64 Hypoxia R09.02 GERD (gastroesophageal reflux disease) K21.9 Restrictive lung disease J98.4 CAD (coronary artery disease) I25.10 S/P AVR (aortic valve replacement) Z95.2 Dyslipidemia E78.5 Anemia D64.9 Multiple myeloma C90.00 DVT prophylaxis Z29.9 Hyperglycemia R73.9 (1) Pneumonia Laterality: bilateral Lung location: lower lobe of lung Pneumonia type: due to unspecified organism Qualified Code(s): J18.9 - Pneumonia, unspecified organism
[2021-01-31] MEDS ORDERED: LACTATED RINGER'S 1,000 ML IV ONE (03:22)
[2021-01-31] MEDS: INSULIN ASPART 100 UNITS/ML 3 ML PEN SC SCH ×5 (04:38→20:43)
[2021-01-31] MEDS: methylPREDNISolone 60 MG in SYRINGE 0 ML IV SCH ×3 (04:38→20:40)
[2021-01-31 05:16] LABS: Hematocrit (blood only) 29.7 % (42-52); Hemoglobin 9.6 g/dL (14.0-18.0); Mean Corpuscular Hemoglobin 32.9 pg (25-34); Mean Corpuscular Hgb Conc 32.3 g/dL (32-36); Mean Corpuscular Volume 101.7 fL (80-100); Mean Platelet Volume 10.6 fL (7.4-10.4); Platelet Count 99 K/uL (130-400); RDW Coefficient of Variation 14.6 % (11.5-14.5); Red Blood Count 2.92 M/uL (4.7-6.1); White Blood Count 16.27 K/uL (4.8-10.8)
[2021-01-31 05:40] LABS: Basophils # (auto) 0.01 K/uL (0-0.2); Basophils % (auto) 0.1 %; Immature Granulocytes # (auto) 0.16 K/uL (0.00-0.02); Lymphocytes # (auto) 0.19 K/uL (1.2-3.4); Lymphocytes % (auto) 1.2 %; Monocytes # (auto) 0.72 K/uL (0.11-0.59); Monocytes % (auto) 4.4 %; Neutrophils # (auto) 15.19 K/uL (1.4-6.5); Neutrophils % (auto) 93.3 %; RBC Morphology Unremarkable
[2021-01-31 05:41] LABS: Albumin Level 2.5 gm/dl (3.4-5.0); BUN Creatinine Ratio 25.2 (10-20); Calcium 8.3 mg/dl (8.5-10.1); Creatinine Clr Calc Pharmacy 62.6 ml/min; Est GFR (African American) 102.1 ml/min; Est GFR (Non-African American) 88.1 ml/min; Potassium 3.7 mmol/L (3.5-5.1)
[2021-01-31 05:44] LABS: Albumin Globulin Ratio 0.7 (0.9-2); Bilirubin,Total 0.3 mg/dl (0.2-1); Globulin 3.7 gm/dl (2.5-4.0); Phosphorus 3.6 mg/dl (2.5-4.9); Total Protein 6.2 gm/dl (6.4-8.2)
[2021-01-31] MEDS: ALBUT/IPRATROP 3MG/0.5MG NEB 3 ML VIAL NEB SCH ×4 (07:05→19:16)
[2021-01-31] MEDS: AMOXICILLIN/CLAVULANATE 875 MG TAB PO SCH ×2 (07:53→20:40)
[2021-01-31] MEDS: INSULIN GLARGINE SOLOSTAR 100 UNITS/ML 3 ML PEN SC SCH ×2 (07:53→20:43)
[2021-01-31] MEDS: PANTOprazole 40 MG TAB PO SCH (07:54)
[2021-01-31] MEDS: TAMSULOSIN HCL 0.4 MG CAP PO SCH (07:54)
[2021-01-31] MEDS: ASPIRIN 81 MG ECTAB PO SCH (07:54)
[2021-01-31] MEDS: ROSUVASTATIN CALCIUM 10 MG TAB PO SCH (07:54)
[2021-01-31] MEDS: FAMOTIDINE 20 MG TAB PO SCH (07:54)
[2021-01-31] MEDS: DOXYCYCLINE HYCLATE 100 MG CAP PO SCH ×2 (07:55→20:41)
[2021-01-31] MEDS: valACYclovir HCL 500 MG TABLET PO SCH ×2 (07:55→20:40)
[2021-01-31] MEDS: MIRTAZAPINE TAB 15 MG TAB PO SCH (07:56)
[2021-01-31] MEDS: FLUTICASONE/VILANTEROL 100/25MCG 14 PUFFS/INHALER INH SCH (07:56)
[2021-01-31] MEDS ORDERED: SODIUM CHLORIDE 0.9% 1000ML 1,000 ML IV ONE (08:36)
--- NOTE | 2021-01-31 08:44 | Pulmonology Progress Note ---
Date of Service January 31, 2021 Assessment & Plan (1) Acute exacerbation of idiopathic pulmonary fibrosis: (2) Pneumonia: Laterality: bilateral Lung location: lower lobe of lung Pneumonia type: due to unspecified organism Qualified Code(s): J18.9 - Pneumonia, unspecified organism (3) Hypoxia: (4) Cough: (5) GERD (gastroesophageal reflux disease): (6) Exertional shortness of breath: Plan: 80-year-old known patient of mine who I follow in the clinic. Patient has known history of ILD which I think is most likely coming from the immunotherapy which he got for his multiple myeloma CT chest 01/29/2021 personally reviewed: Traction bronchiectasis with honeycombing again appreciated bilaterally especially on the right side Groundglass opacities are appreciated bilaterally, there is also some consolidative process in the periphery No mediastinal lymphadenopathy --Acute on chronic hypoxic respiratory failure On 3 L oxygen at home Multifactorial Worsening of underlying ILD with acute exacerbation in the differential Would like to continue with broad-spectrum antibiotics as well while the patient is getting steroids Patient has not been on steroids at home, the possibility of PJP is low. Fungitell has been ordered. Patient is on Zosyn it could be falsely positive. But if it is negative it would rule out PJP COVID-19 NAAT negative 01/29/2021 Procalcitonin 0.26, influenza A and B negative BNP 1820 Continue with incentive spirometry and flutter valve Continue with O2 supplementation to keep oxygen saturation 88-92% --Multiple myeloma in relapse On chemotherapy Follows up at [facility] --DNR/DNI Overall prognosis is guarded. Plan: Go down on Solu-Medrol to 60 mg every 8hrs Continue with incentive spirometry and flutter valve Follow-up Legionella and mycoplasma IgM Please note the above document was generated using voice recognition software. It may contain grammatical, syntax or spelling errors.Any formal questions or concerns about the content, text or information contained within the body of this dictation should be directly addressed to the provider for clarification. Admission and Anticipated Discharge Date Admission Date: January 29, 2021 Subjective Patient seen and examined at bedside. No acute distress, no adverse events overnight. Patient said he is feeling better compared to yesterday. He was saturating 98% on 3 L nasal cannula. He looked more comfortable compared to when I saw him yesterday. Denies any chest pain, has been coughing and bringing up phlegm. Denies any fever or chills. Poor appetite. Denies any nausea or vomiting Patient did have a bout of confusion yesterday. This could be secondary to high-dose steroids. Review of Systems Review of Systems: All systems reviewed & are unremarkable except as noted in Subjective Physical Exam Physical Exam: Constitutional: No acute distress, frail-appearing HEENT: EOMI, PERRLA Respiratory system: Decreased air entry bilaterally, no wheeze, no rhonchi, positive Velcro crackles bilateral lower lobes CVS: S1-S2 positive, no murmurs or gallops Abdomen: Soft, nontender, nondistended, positive bowel sounds x4 Extremities: +2 pulses bilaterally radialis/ dorsalis pedis, no cyanosis, no edema Neuro: Awake alert oriented x3 Psych: Normal mood and affect G/U: No [place] Skin: no rashes, warm and dry Lymphatic: no cervical or axillary lymphadenopathy Results & Data Results & Data ([facility]) Vital Signs (Past 12 Hours) Vital Signs Temp Pulse Pulse Resp BP BP Pulse Ox 01/31/21 08:33 36.5 C 104 H 22 98/58 L 95 01/31/21 07:05 98 H 16 100 01/31/21 06:30 76 106/63 100 01/31/21 06:00 79 112/66 100 01/31/21 05:05 85 16 113/70 100 01/31/21 04:35 21 111/71 98 01/31/21 04:26 73 15 106/66 100 01/31/21 04:05 81 21 80/57 L 100 01/31/21 04:00 36.3 C L 01/31/21 03:35 77 16 93/54 L 100 01/31/21 03:20 79 16 105/61 99 01/31/21 03:15 73 34 H 84/41 L 100 01/31/21 01:35 82 15 104/64 97 01/31/21 00:35 87 20 106/66 97 01/31/21 00:05 85 31 H 101/65 95 01/30/21 23:56 36.9 C 94 H 01/30/21 23:51 87 19 109/68 96 01/30/21 23:35 84 16 87/65 L 98 01/30/21 23:05 85 23 92/57 L 98 01/30/21 22:35 83 23 101/66 99 01/30/21 22:05 84 18 97/63 L 100 01/30/21 21:35 83 21 87/59 L 99 01/30/21 21:06 85 23 96/60 L 96 01/31/21 04:46 01/31/21 04:46 PG Care Time/CCT Total # of Minutes Spent Total Time Spent with Patient: Total time spent is greater than 50% in coordination of care (as documented) at patient's floor/unit and/or counseling patient: Coding [place] [address] Subseq Hosp Care Lvl 3 Patient Type Established Diagnoses Acute exacerbation of idiopathic pulmonary fibrosis J84.112 Pneumonia J18.9 Laterality: bilateral Lung location: lower lobe of lung Pneumonia type: due to unspecified organism Hypoxia R09.02 Cough R05 GERD (gastroesophageal reflux disease) K21.9 Exertional shortness of breath R06.02
--- NOTE | 2021-01-31 09:40 | XRay Report ---
XR chest 1V portable CLINICAL HISTORY: worsening hypoxia COMPARISON STUDY: Chest CT January 29, 2021. Chest radiograph January 30, 2021. FINDINGS: Median sternotomy wires are noted. There are mediastinal surgical clips. Multiple old left rib fractures are incidentally noted. Cardiomegaly is unchanged. Underlying pulmonary fibrosis is aga in noted. Right lung airspace opacities have slightly improved since prior exam of January 30, 2021. IMPRESSION: Slight improvement in right lung airspace opacities which favor pneumonia superimposed u shweta pulmonary fibrosis. ACT 112: Negative or not required by law. Electronically signed by: Angel Perez M.D. 01/31/2021 9:38 AM
--- NOTE | 2021-01-31 12:39 | Pharmacy Report ---
Pharmacy Glycemic Short Note 2 - Date of Service January 31, 2021 - Glycemic Short BSG Results (Last 24 hours): 01/30/21 01/30/21 01/30/21 16:24 20:27 23:50 Glucose POC Glucose 248 H 146 H 131 H 01/31/21 01/31/21 01/31/21 04:37 04:46 07:18 Glucose 125 H POC Glucose 140 H 123 H 01/31/21 11:26 Glucose POC Glucose 135 H OUTPATIENT ANTIDIABETIC REGIMEN: * N/A; takes Prednisone 20mg daily [employer] * A1c = 5.6% 01/19/21 ASSESSMENT: 01/31 * BSGs well controlled over last 24 hrs * High dose IV steroids continue however Solu-medrol dose was decreased from 60mg IV Q 6 hrs to 60mg IV Q 8 hours * Fasting BSG 123 this AM w/ 8 units basal on board * Post-prandial BSG better controlled today using new CR 01/30 * Patient admitted for exacerbation of interstitial pulmonary fibrosis * Auto consult for glycemic control triggered by 2 consecutive BSGs > 140 * Patient is likely experiencing stress-induced / steroid-induced hyperglycemia (receiving Solu-medrol 60mg IV Q 6 hours) * Will initiated Novolog correctional and prandial insulin at this time based upon weight and "moderate" stress level given BSGs remain less than 180 * No basal insulin will be provided unless fasting elevation observed tomorrow PLAN FOR INPATIENT GLYCEMIC CONTROL: * Basal insulin * Lantus 8 units BID * Bolus insulin * NovoLog per scale ACHS or Q6hrs while NPO * Goal Range: Low 110 mg/dL - High 140 mg/dL * Correction Factor: 30 mg/dL/unit * Nutritional / Prandial insulin per carb ratio of 1 unit per 10 grams CHO consumed
--- NOTE | 2021-01-31 15:07 | Hospitalist Progress Note ---
Date of Service January 31, 2021 Assessment & Plan (1) Pneumonia: Plan: 80 y/o M Hx HTN, HLD, GERD, CAD, multiple myeloma, ILD - home 02. Presents with progressive SOB. He has become severely short of breath over the past few days with minimal exertion and has had increasing oxygen requirements. He reports a fever of 100.1 the prior evening. He was markedly hypoxic on arrival to the ER. He has a persistent productive cough recently, which he attributes to GERD. Initial labs were notable for leukocytosis, anemia, protein malnutrition, an elevated dimer and a troponin of .048. A CTA was negative for PE but did demonstrate ILD and BL basilar opacities consistent with PNM. An EKG did not support ischemia. The pt become hypotensive in the ER with a BP of 90/60 which improved with IVF. For pneumonia- the pt was initially placed on Zosyn and Doxy to cover possible aspiration and atypical PNM as well. He was transferred to the ICU on the first night of admission due to hypotension. Also with acute on chronic respiratory failure with hypoxia-this is improved and he is down to 4 L nasal cannula. Baseline is 3 L nasal cannula continuously at home. Blood pressures improved with crystalloid fluids and he did not require vasopressors. He was then downgraded out of the ICU on 01/30 Had thick mucus and choking event on mucus with hypotension and hypoxia on AM of 01/31 MRSA nasal swab was negative, procalcitonin 0.26 He remains afebrile Covid-19 test negative Leukocytosis has improved Blood pressures are now improved but at times remain low-gave 1L NS bolus this AM He is on chronic prednisone for the last month at 20 mg daily and likely has some degree of adrenal insufficiency -Antibiotics changed to Augmentin and doxycycline both p.o. -Appreciate pulmonology consultation -Fungitell is pending but may be falsely positive in the setting of Zosyn use -Legionella urine antigen and mycoplasma IgM still pending -Follow blood cultures-no growth to date -Continue bronchodilators and flutter valve -Change IV steroids 60 mg IV every 8 hours (2) Pulmonary fibrosis, unspecified: Plan: Thought to be secondary to his previous immunotherapy Follows with pulmonary -Treatment as above (3) CAD (coronary artery disease): Plan: CAD and elevated trop - trop is likely demand-related as he does not have an EKG or symptoms consistent with acute ischemia. Serial troponin trended downward We will cont ASA, statin and a beta federico if tolerated. With a history of CABG (4) Cachexia: Plan: Improving now with prednisone 20 mg daily for the last month Weight has stabilized Appreciate dietary consultation-have liberalized diet to regular (5) Hypoxia: Plan: Acute on chronic respiratory failure with hypoxia secondary to pneumonia and ILD exacerbation as above Continue steroids Continue supplemental O2 Baseline is 3 L nasal cannula (6) GERD (gastroesophageal reflux disease): Plan: Continue PPI (7) Restrictive lung disease: Plan: As above (8) S/P AVR (aortic valve replacement): Plan: History of bioprosthetic aortic valve (9) Dyslipidemia: Plan: Continue statin (10) Anemia: Plan: - macrocytic and may be worsening - likely anemia of chronic disease but could be secondary to chemotherapy B12 here is normal Follow CBC (11) Multiple myeloma: Plan: Currently receiving bendamustine every 4 weeks (12) Hyperglycemia: Plan: With hyperglycemia now imrpoving Insulin sliding scale Lantus Hemoglobin A1c in normal limits Secondary to steroids (13) Paroxysmal atrial fibrillation: Plan: 3 min of such on 01/31 no need for AC restart metoprolol when BPs can tolerate (14) Thrombocytopenia: Plan: improving,m chromic, secondary to antineoplastic therapy (15) DVT prophylaxis: Plan: Lovenox SQ Disposition-continued stay PCU, pt anxious for dc but still weak, hypotensive, hypoxic PT/OT evals Admission and Anticipated Discharge Date Admission Date: January 29, 2021 Subjective Pt had an episode this AM of thick mucus coughed up and caused him to feel like he was choking. Had lower BPs, 3 min of Afib/flutter, and hypoxia to 85%, required 5L for a while. Now improved. Still feels lightheaded with sitting in chair. Tele with NSR rates 70-90s, 3 min of Afib Review of Systems Review of Systems: All systems reviewed & are unremarkable except as noted in HPI & below Physical Exam Constitutional: + thin; no acute distress Eyes: + anicteric sclerae ENMT: external ear and nose normal, oropharynx normal Neck: trachea midline, no thyromegaly Respiratory: normal respiratory effort; no cough Auscultation: + crackles (At bases bilaterally); no rhonchi and no wheezes Cardiovascular: RRR, no murmur, no edema Chest (Breasts): Chest: + abnormal inspection of chest (Mid sternotomy incisional scar present) Gastrointestinal (Abdomen): normal bowel sounds, soft, nontender, no hepatosplenomegaly Musculoskeletal: Extremities: extremities normal to inspection; no cyanosis and no clubbing Skin: no rashes, warm and dry Neurologic: moves all extremities and awake; no focal motor deficits Psychiatric: A+Ox3, euthymic affect Lymphatic: no lymphedema Results & Data Results & Data ([facility]) Vital Signs (Past 12 Hours) Vital Signs Temp Pulse Pulse Resp BP BP Pulse Ox 01/31/21 11:15 100 H 22 95 01/31/21 11:02 36.4 C L 91 H 19 106/65 100 01/31/21 08:33 36.5 C 104 H 22 98/58 L 95 01/31/21 08:00 79 01/31/21 07:05 98 H 16 100 01/31/21 06:30 76 106/63 100 01/31/21 06:00 79 112/66 100 01/31/21 05:05 85 16 113/70 100 01/31/21 04:35 21 111/71 98 01/31/21 04:26 73 15 106/66 100 01/31/21 04:05 81 21 80/57 L 100 01/31/21 04:00 36.3 C L 01/31/21 03:35 77 16 93/54 L 100 01/31/21 03:20 79 16 105/61 99 01/31/21 03:15 73 34 H 84/41 L 100 Laboratory Results 01/31/21 01/31/21 01/31/21 Range/Units 11:26 07:18 04:46 WBC (4.8-10.8) K/uL RBC (4.7-6.1) M/uL Hgb (14.0-18.0) g/dL Hct (42-52) % MCV (80-100) fL MCH (25-34) pg MCHC (32-36) g/dL RDW Std Deviation (36.4-46.3) fL RDW Coeff of Renee (11.5-14.5) % Plt Count (130-400) K/uL MPV (7.4-10.4) fL Immature Gran % (Auto) % Neut % (Auto) % Lymph % (Auto) % Childress % (Auto) % Eos % (Auto) % Baso % (Auto) % Neut # (Auto) (1.4-6.5) K/uL Lymph # (Auto) (1.2-3.4) K/uL Childress # (Auto) (0.11-0.59) K/uL Eos # (Auto) (0-0.5) K/uL Baso # (Auto) (0-0.2) K/uL Immature Gran # (Auto) (0.00-0.02) K/uL RBC Morphology Sodium 139 (136-145) mmol/L Potassium 3.7 (3.5-5.1) mmol/L Chloride 101 (98-107) mmol/L Carbon Dioxide 34 H (21-32) mmol/L Anion Gap 4.0 (3-11) BUN 18 (7-18) mg/dl Creatinine 0.72 (0.6-1.4) mg/dl Est Cr Clr Drug Dosing 62.6 ml/min Est GFR ( Amer) 102.1 ml/min Est GFR (Non-Af Amer) 88.1 ml/min BUN/Creatinine Ratio 25.2 H (10-20) Glucose 125 H (70-99) mg/dl POC Glucose 135 H 123 H (70-99) mg/dl Calcium 8.3 L (8.5-10.1) mg/dl Phosphorus 3.6 (2.5-4.9) mg/dl Magnesium 2.0 (1.8-2.4) mg/dl Total Bilirubin 0.3 (0.2-1) mg/dl AST 10 L (15-37) U/L ALT 15 (12-78) U/L Alkaline Phosphatase 108 (45-117) U/L Total Protein 6.2 L (6.4-8.2) gm/dl Albumin 2.5 L (3.4-5.0) gm/dl Globulin 3.7 (2.5-4.0) gm/dl Albumin/Globulin Ratio 0.7 L (0.9-2) Influ A Molecular Assay (Negative) Influ B Molecular Assay (Negative) 01/31/21 01/31/21 01/30/21 Range/Units 04:46 04:37 23:50 WBC 16.27 H (4.8-10.8) K/uL RBC 2.92 L (4.7-6.1) M/uL Hgb 9.6 L (14.0-18.0) g/dL Hct 29.7 L (42-52) % MCV 101.7 H (80-100) fL MCH 32.9 (25-34) pg MCHC 32.3 (32-36) g/dL RDW Std Deviation 54.0 H (36.4-46.3) fL RDW Coeff of Renee 14.6 H (11.5-14.5) % Plt Count 99 L (130-400) K/uL MPV 10.6 H (7.4-10.4) fL Immature Gran % (Auto) 1.0 % Neut % (Auto) 93.3 % Lymph % (Auto) 1.2 % Childress % (Auto) 4.4 % Eos % (Auto) 0.0 % Baso % (Auto) 0.1 % Neut # (Auto) 15.19 H (1.4-6.5) K/uL Lymph # (Auto) 0.19 L (1.2-3.4) K/uL Childress # (Auto) 0.72 H (0.11-0.59) K/uL Eos # (Auto) 0.00 (0-0.5) K/uL Baso # (Auto) 0.01 (0-0.2) K/uL Immature Gran # (Auto) 0.16 H (0.00-0.02) K/uL RBC Morphology Unremarkable Sodium (136-145) mmol/L Potassium (3.5-5.1) mmol/L Chloride (98-107) mmol/L Carbon Dioxide (21-32) mmol/L Anion Gap (3-11) BUN (7-18) mg/dl Creatinine (0.6-1.4) mg/dl Est Cr Clr Drug Dosing ml/min Est GFR ( Amer) ml/min Est GFR (Non-Af Amer) ml/min BUN/Creatinine Ratio (10-20) Glucose (70-99) mg/dl POC Glucose 140 H 131 H (70-99) mg/dl Calcium (8.5-10.1) mg/dl Phosphorus (2.5-4.9) mg/dl Magnesium (1.8-2.4) mg/dl Total Bilirubin (0.2-1) mg/dl AST (15-37) U/L ALT (12-78) U/L Alkaline Phosphatase (45-117) U/L Total Protein (6.4-8.2) gm/dl Albumin (3.4-5.0) gm/dl Globulin (2.5-4.0) gm/dl Albumin/Globulin Ratio (0.9-2) Influ A Molecular Assay (Negative) Influ B Molecular Assay (Negative) 01/30/21 01/30/21 01/30/21 Range/Units 20:27 16:24 15:07 WBC (4.8-10.8) K/uL RBC (4.7-6.1) M/uL Hgb (14.0-18.0) g/dL Hct (42-52) % MCV (80-100) fL MCH (25-34) pg MCHC (32-36) g/dL RDW Std Deviation (36.4-46.3) fL RDW Coeff of Renee (11.5-14.5) % Plt Count (130-400) K/uL MPV (7.4-10.4) fL Immature Gran % (Auto) % Neut % (Auto) % Lymph % (Auto) % Childress % (Auto) % Eos % (Auto) % Baso % (Auto) % Neut # (Auto) (1.4-6.5) K/uL Lymph # (Auto) (1.2-3.4) K/uL Childress # (Auto) (0.11-0.59) K/uL Eos # (Auto) (0-0.5) K/uL Baso # (Auto) (0-0.2) K/uL Immature Gran # (Auto) (0.00-0.02) K/uL RBC Morphology Sodium (136-145) mmol/L Potassium (3.5-5.1) mmol/L Chloride (98-107) mmol/L Carbon Dioxide (21-32) mmol/L Anion Gap (3-11) BUN (7-18) mg/dl Creatinine (0.6-1.4) mg/dl Est Cr Clr Drug Dosing ml/min Est GFR ( Amer) ml/min Est GFR (Non-Af Amer) ml/min BUN/Creatinine Ratio (10-20) Glucose (70-99) mg/dl POC Glucose 146 H 248 H (70-99) mg/dl Calcium (8.5-10.1) mg/dl Phosphorus (2.5-4.9) mg/dl Magnesium (1.8-2.4) mg/dl Total Bilirubin (0.2-1) mg/dl AST (15-37) U/L ALT (12-78) U/L Alkaline Phosphatase (45-117) U/L Total Protein (6.4-8.2) gm/dl Albumin (3.4-5.0) gm/dl Globulin (2.5-4.0) gm/dl Albumin/Globulin Ratio (0.9-2) Influ A Molecular Assay Negative (Negative) Influ B Molecular Assay Negative (Negative) PG Care Time/CCT Total # of Minutes Spent Total Time Spent with Patient: Total time spent is greater than 50% in coordination of care (as documented) at patient's floor/unit and/or counseling patient: Coding Level of Care Code 72320 Subseq Hosp Care Lvl 3 Diagnoses Pneumonia J18.9 Laterality: bilateral Lung location: lower lobe of lung Pneumonia type: due to unspecified organism Pulmonary fibrosis, unspecified J84.10 CAD (coronary artery disease) I25.10 Cachexia R64 Hypoxia R09.02 GERD (gastroesophageal reflux disease) K21.9 Restrictive lung disease J98.4 S/P AVR (aortic valve replacement) Z95.2 Dyslipidemia E78.5 Anemia D64.9 Multiple myeloma C90.00 Hyperglycemia R73.9 DVT prophylaxis Z29.9 Paroxysmal atrial fibrillation I48.0 Thrombocytopenia D69.6 (1) Pneumonia Laterality: bilateral Lung location: lower lobe of lung Pneumonia type: due to unspecified organism Qualified Code(s): J18.9 - Pneumonia, unspecified organism
[2021-01-31] MEDS: ENOXAPARIN INJ 40 MG/0.4 ML SYR SQ SCH (16:48)
[2021-02-01] MEDS: INSULIN ASPART 100 UNITS/ML 3 ML PEN SC SCH ×6 (00:33→22:45)
[2021-02-01] MEDS: methylPREDNISolone 60 MG in SYRINGE 0 ML IV SCH (05:32)
[2021-02-01] MEDS: ALBUT/IPRATROP 3MG/0.5MG NEB 3 ML VIAL NEB SCH ×4 (07:05→19:15)
[2021-02-01] MEDS: INSULIN GLARGINE SOLOSTAR 100 UNITS/ML 3 ML PEN SC SCH ×2 (07:55→22:45)
[2021-02-01] MEDS: FLUTICASONE/VILANTEROL 100/25MCG 14 PUFFS/INHALER INH SCH (08:01)
[2021-02-01] MEDS: MIRTAZAPINE TAB 15 MG TAB PO SCH (08:01)
[2021-02-01] MEDS: PANTOprazole 40 MG TAB PO SCH (08:01)
[2021-02-01] MEDS: TAMSULOSIN HCL 0.4 MG CAP PO SCH (08:01)
[2021-02-01] MEDS: ROSUVASTATIN CALCIUM 10 MG TAB PO SCH (08:01)
[2021-02-01] MEDS: AMOXICILLIN/CLAVULANATE 875 MG TAB PO SCH ×2 (08:02→22:41)
[2021-02-01] MEDS: FAMOTIDINE 20 MG TAB PO SCH ×2 (08:02→17:08)
[2021-02-01] MEDS: DOXYCYCLINE HYCLATE 100 MG CAP PO SCH ×2 (08:02→22:44)
[2021-02-01] MEDS: ASPIRIN 81 MG ECTAB PO SCH (08:02)
[2021-02-01] MEDS: valACYclovir HCL 500 MG TABLET PO SCH ×2 (08:03→22:42)
[2021-02-01 08:46] LABS: Hematocrit (blood only) 33.3 % (42-52); Hemoglobin 10.7 g/dL (14.0-18.0); Mean Corpuscular Hgb Conc 32.1 g/dL (32-36); Mean Corpuscular Volume 102.8 fL (80-100); Mean Platelet Volume 9.8 fL (7.4-10.4); Platelet Count 112 K/uL (130-400); RDW Coefficient of Variation 14.6 % (11.5-14.5); RDW Standard Deviation 54.9 fL (36.4-46.3); Red Blood Count 3.24 M/uL (4.7-6.1); White Blood Count 16.99 K/uL (4.8-10.8)
[2021-02-01 09:02] LABS: Eosinophils # (auto) 0.01 K/uL (0-0.5); Eosinophils % (auto) 0.1 %; Immature Granulocytes # (auto) 0.12 K/uL (0.00-0.02); Immature Granulocytes % (auto) 0.7 %; Lymphocytes # (auto) 0.37 K/uL (1.2-3.4); Lymphocytes % (auto) 2.2 %; Monocytes # (auto) 0.25 K/uL (0.11-0.59); Monocytes % (auto) 1.5 %; Neutrophils # (auto) 16.24 K/uL (1.4-6.5); Neutrophils % (auto) 95.5 %; Toxic Granulation 1+
[2021-02-01 09:44] LABS: Albumin Level 2.7 gm/dl (3.4-5.0); BUN Creatinine Ratio 34.6 (10-20); Calcium 8.6 mg/dl (8.5-10.1); Creatinine Clr Calc Pharmacy 78.4 ml/min; Est GFR (African American) 107.9 ml/min; Est GFR (Non-African American) 93.1 ml/min; Magnesium 2.1 mg/dl (1.8-2.4); Potassium 3.6 mmol/L (3.5-5.1)
[2021-02-01 09:47] LABS: Albumin Globulin Ratio 0.7 (0.9-2); Bilirubin,Total 0.4 mg/dl (0.2-1); Total Protein 6.7 gm/dl (6.4-8.2)
[2021-02-01] MEDS ORDERED: POTASSIUM CHLORIDE CRTAB 20 MEQ TABCR PO STA (10:28)
[2021-02-01] MEDS ORDERED: METOPROLOL SUCC 25MG EXT REL TAB PO SCH (10:30)
--- NOTE | 2021-02-01 11:54 | Pharmacy Report ---
Pharmacy Glycemic Short Note 2 - Date of Service February 01, 2021 - Glycemic Short BSG Results (Last 24 hours): 01/31/21 01/31/21 02/01/21 16:19 20:25 00:19 Glucose POC Glucose 143 H 154 H 147 H 02/01/21 02/01/21 02/01/21 04:35 08:06 08:21 Glucose 109 H POC Glucose 135 H 118 H 02/01/21 11:43 Glucose POC Glucose 116 H OUTPATIENT ANTIDIABETIC REGIMEN: * N/A; takes Prednisone 20mg daily [employer] * A1c = 5.6% 01/19/21 ASSESSMENT: 02/01 * BSGs well controlled over last 24 hours * 32 units SQ administered over last 24 hrs while tolerating a diet and while receiving Solu-medrol 60mg IV Q 8 hrs * Will continue current insulin orders for time being. * Will need to actively titrate insulin doses down as steroid is tapered. 01/31 * BSGs well controlled over last 24 hrs * High dose IV steroids continue however Solu-medrol dose was decreased from 60mg IV Q 6 hrs to 60mg IV Q 8 hours * Fasting BSG 123 this AM w/ 8 units basal on board * Post-prandial BSG better controlled today using new CR 01/30 * Patient admitted for exacerbation of interstitial pulmonary fibrosis * Auto consult for glycemic control triggered by 2 consecutive BSGs > 140 * Patient is likely experiencing stress-induced / steroid-induced hyperglycemia (receiving Solu-medrol 60mg IV Q 6 hours) * Will initiated Novolog correctional and prandial insulin at this time based upon weight and "moderate" stress level given BSGs remain less than 180 * No basal insulin will be provided unless fasting elevation observed tomorrow PLAN FOR INPATIENT GLYCEMIC CONTROL: * Basal insulin - no change * Lantus 8 units BID * Bolus insulin - no change * NovoLog per scale ACHS or Q6hrs while NPO * Goal Range: Low 110 mg/dL - High 140 mg/dL * Correction Factor: 25 mg/dL/unit * Nutritional / Prandial insulin per carb ratio of 1 unit per 10 grams CHO consumed DISCHARGE RECOMMENDATIONS: * Patient is experiencing steroid induced hyperglycemia. A1c of 5.6% when assessed this admission. Anti-hyperglycemic meds not likely needed on discharge. If patient is discharged on high dose steroids, periodic BSG checks may be warranted.
--- NOTE | 2021-02-01 12:38 | Pulmonology Progress Note ---
Date of Service February 01, 2021 Assessment & Plan (1) Acute exacerbation of idiopathic pulmonary fibrosis: (2) Pneumonia: Laterality: bilateral Lung location: lower lobe of lung Pneumonia type: due to unspecified organism Qualified Code(s): J18.9 - Pneumonia, unspecified organism (3) Hypoxia: (4) Cough: (5) GERD (gastroesophageal reflux disease): (6) Exertional shortness of breath: Plan: 80-year-old known patient of mine who I follow in the clinic. Patient has known history of ILD which I think is most likely coming from the immunotherapy which he got for his multiple myeloma CT chest 01/29/2021 personally reviewed: Traction bronchiectasis with honeycombing again appreciated bilaterally especially on the right side Groundglass opacities are appreciated bilaterally, there is also some consolidative process in the periphery No mediastinal lymphadenopathy --Acute on chronic hypoxic respiratory failure On 3 L oxygen at home Multifactorial Worsening of underlying ILD with acute exacerbation in the differential Would like to continue with broad-spectrum antibiotics as well while the patient is getting steroids Patient has not been on steroids at home, the possibility of PJP is low. Fungitell has been ordered. Patient is on Zosyn it could be falsely positive. But if it is negative it would rule out PJP COVID-19 NAAT negative 01/29/2021 Procalcitonin 0.26, influenza A and B negative BNP 1820 Continue with incentive spirometry and flutter valve Continue with O2 supplementation to keep oxygen saturation 88-92% --Multiple myeloma in relapse On chemotherapy Follows up at [facility] --DNR/DNI Overall prognosis is guarded. Plan: I will go down on Solu-Medrol to 40 mg every 12 hours. Patient will likely need slow tapering of his steroids. Plan with antibiotics for total of 10 days. Continue with incentive spirometry and flutter valve Follow-up Legionella and mycoplasma IgM PT OT Patient might benefit from rehab placement if he agrees. Please note the above document was generated using voice recognition software. It may contain grammatical, syntax or spelling errors.Any formal questions or concerns about the content, text or information contained within the body of this dictation should be directly addressed to the provider for clarification. Admission and Anticipated Discharge Date Admission Date: January 29, 2021 Subjective Patient seen and examined at bedside. No acute distress, no adverse events overnight. Patient states he is feeling better Shortness of breath is improved. His appetite is also improved. He still is very lethargic. He needs help even to go to the commode. He was asking about physical therapy. At the time of examination he was saturating 96% on 2 L nasal cannula. Review of Systems Review of Systems: All systems reviewed & are unremarkable except as noted in Subjective Physical Exam Physical Exam: Constitutional: No acute distress, frail-appearing HEENT: EOMI, PERRLA Respiratory system: Decreased air entry bilaterally, no wheeze, no rhonchi, positive Velcro crackles bilateral lower lobes CVS: S1-S2 positive, no murmurs or gallops Abdomen: Soft, nontender, nondistended, positive bowel sounds x4 Extremities: +2 pulses bilaterally radialis/ dorsalis pedis, no cyanosis, no edema Neuro: Awake alert oriented x3 Psych: Normal mood and affect G/U: No [place] Skin: no rashes, warm and dry Lymphatic: no cervical or axillary lymphadenopathy Results & Data Results & Data ([facility]) Vital Signs (Past 12 Hours) Vital Signs Temp Pulse Pulse Resp BP BP BP 02/01/21 11:43 36.5 C 118 H 18 129/80 02/01/21 08:19 36.5 C 108 H 19 110/62 02/01/21 08:00 99 H 02/01/21 07:05 103 H 20 02/01/21 04:10 36.5 C 92 H 23 110/68 02/01/21 01:30 92 H 99/64 L 02/01/21 01:00 90 101/59 L Pulse Ox 02/01/21 11:43 91 02/01/21 08:19 94 02/01/21 08:00 02/01/21 07:05 96 02/01/21 04:10 96 02/01/21 01:30 96 02/01/21 01:00 98 02/01/21 08:21 02/01/21 08:21 PG Care Time/CCT Total # of Minutes Spent Total Time Spent with Patient: Total time spent is greater than 50% in coordination of care (as documented) at patient's floor/unit and/or counseling patient: C[place] [address] Subseq Hosp Care Lvl 3 Patient Type Established Diagnoses Acute exacerbation of idiopathic pulmonary fibrosis J84.112 Pneumonia J18.9 Laterality: bilateral Lung location: lower lobe of lung Pneumonia type: due to unspecified organism Hypoxia R09.02 Cough R05 GERD (gastroesophageal reflux disease) K21.9 Exertional shortness of breath R06.02
--- NOTE | 2021-02-01 15:54 | Hospitalist Progress Note ---
Date of Service February 01, 2021 Assessment & Plan (1) Pneumonia: Plan: 80 y/o M Hx HTN, HLD, GERD, CAD, multiple myeloma, ILD - home 02. Presents with progressive SOB. He has become severely short of breath over the past few days with minimal exertion and has had increasing oxygen requirements. He reports a fever of 100.1 the prior evening. He was markedly hypoxic on arrival to the ER. He has a persistent productive cough recently, which he attributes to GERD. Initial labs were notable for leukocytosis, anemia, protein malnutrition, an elevated dimer and a troponin of .048. A CTA was negative for PE but did demonstrate ILD and BL basilar opacities consistent with PNM. An EKG did not support ischemia. The pt become hypotensive in the ER with a BP of 90/60 which improved with IVF. For pneumonia- the pt was initially placed on Zosyn and Doxy to cover possible aspiration and atypical PNM as well. He was transferred to the ICU on the first night of admission due to worsening hypotension. Also with acute on chronic respiratory failure with hypoxia- Baseline is 3 L nasal cannula continuously at home. He has required 3-4LNC at rest here but was hypoxic to 70s requiring 5L and rest again to recover just with getting OOB to chair on 02/01 Blood pressures improved with crystalloid fluids and he did not require vasopressors. He was then downgraded out of the ICU on 01/30 Had thick mucus and choking event on mucus with hypotension and hypoxia on AM of 01/31 MRSA nasal swab was negative, procalcitonin 0.26 He remains afebrile Covid-19 test negative Leukocytosis improved but remains high due to IV steroids Blood pressures are now improved He is on chronic prednisone for the last month at 20 mg daily and likely has some degree of adrenal insufficiency -Antibiotics changed to Augmentin and doxycycline both p.o. and should continue x 10 day course as per PULM-last day tx is 02/07 -Appreciate pulmonology consultation -Fungitell is pending but may be falsely positive in the setting of Zosyn use -Legionella urine antigen negative, Mycoplasma IgM still pending -Follow blood cultures-no growth to date -Continue bronchodilators and flutter valve -Change IV steroids 60 mg IV every 12 hours today and then slow taper back to home dose of prednisone 20mg daily (2) Pulmonary fibrosis, unspecified: Plan: Thought to be secondary to his previous immunotherapy Follows with pulmonary -Treatment as above (3) CAD (coronary artery disease): Plan: CAD and elevated trop - trop is likely demand-related as he does not have an EKG or symptoms consistent with acute ischemia. Serial troponin trended downward We will cont ASA, statin and a beta federico to be restarted today With a history of CABG (4) Cachexia: Plan: Improving now with prednisone 20 mg daily for the last month Weight has stabilized Appreciate dietary consultation-have liberalized diet to regular (5) Hypoxia: Plan: Acute on chronic respiratory failure with hypoxia secondary to pneumonia and ILD exacerbation as above Continue steroids Continue supplemental O2 Baseline is 3 L nasal cannula May need new 2 step prior to discharge to determine increased requirement with exertion (if does not go to rehab) (6) GERD (gastroesophageal reflux disease): Plan: Continue PPI (7) Restrictive lung disease: Plan: As above (8) S/P AVR (aortic valve replacement): Plan: History of bioprosthetic aortic valve (9) Dyslipidemia: Plan: Continue statin (10) Anemia: Plan: - macrocytic and worsening - likely anemia of chronic disease but could be secondary to chemotherapy B12 here is normal Follow CBC (11) Multiple myeloma: Plan: Currently receiving bendamustine every 4 weeks (12) Hyperglycemia: Plan: With hyperglycemia now improving Insulin sliding scale Lantus Hemoglobin A1c in normal limits Secondary to steroids (13) Paroxysmal atrial fibrillation: Plan: 3 min of such on 01/31 no need for AC With sinus tach and atrial tach 100-140s restart metoprolol XL 25mg bid today and titrate back to home dose of 100 as blas continue tele monitoring (14) Thrombocytopenia: Plan: improving,chronic, secondary to antineoplastic therapy (15) DVT prophylaxis: Plan: Lovenox SQ Disposition-continued stay PCU, is severely deconditioned, awaiting PT eval; OT recommends rehab vs home with home health if improves and has 28/01 care Discussed care with Biochemistry Technologist and also with at bedside Admission and Anticipated Discharge Date Admission Date: January 29, 2021 Subjective Pt feels ok. He was hypoxic into the 70s just with getting into the chair today and recovered with O2 up to 5L after a few minutes as per RN. He does seem a bit confused today and is unintentionally circumlocutious.He is upset about having to use a bedpan today rather than being allowed to get to a bedside commode. He would like to get out of bed. Discussed his hypoxia with minimal exertion is limiting him right now. He again later asks if he is allowed to get up by himself. Tele with sinus tach 100-140s, bursts of atrial tach to the 190s at times Review of Systems Review of Systems: All systems reviewed & are unremarkable except as noted in HPI & below Physical Exam Constitutional: + thin; no acute distress Eyes: + anicteric sclerae Neck: trachea midline, no thyromegaly Respiratory: normal respiratory effort; no cough Auscultation: + crackles (At bases bilaterally) and + wheezes (bilat expiratory); no rhonchi Cardiovascular: RRR, no murmur, no edema Chest (Breasts): Chest: + abnormal inspection of chest (Mid sternotomy incisional scar present) Gastrointestinal (Abdomen): normal bowel sounds, soft, nontender, no hepatosplenomegaly Musculoskeletal: Extremities: extremities normal to inspection; no cyanosis and no clubbing Skin: no rashes, warm and dry Neurologic: moves all extremities and awake; no focal motor deficits Psychiatric: Orientation: alert, oriented to person, oriented to place and cooperative Lymphatic: no lymphedema Results & Data Results & Data ([facility]) Vital Signs (Past 12 Hours) Vital Signs Temp Pulse Pulse Resp BP BP Pulse Ox 02/01/21 15:08 36.6 C 111 H 19 110/63 98 02/01/21 14:44 102 H 18 100 02/01/21 11:43 36.5 C 118 H 18 129/80 91 02/01/21 08:19 36.5 C 108 H 19 110/62 94 02/01/21 08:00 99 H 02/01/21 07:05 103 H 20 96 02/01/21 04:10 36.5 C 92 H 23 110/68 96 Laboratory Results 02/01/21 02/01/21 02/01/21 Range/Units 11:43 08:21 08:21 WBC 16.99 H (4.8-10.8) K/uL RBC 3.24 L (4.7-6.1) M/uL Hgb 10.7 L (14.0-18.0) g/dL Hct 33.3 L (42-52) % MCV 102.8 H (80-100) fL MCH 33.0 (25-34) pg MCHC 32.1 (32-36) g/dL RDW Std Deviation 54.9 H (36.4-46.3) fL RDW Coeff of Renee 14.6 H (11.5-14.5) % Plt Count 112 L (130-400) K/uL MPV 9.8 (7.4-10.4) fL Immature Gran % (Auto) 0.7 % Neut % (Auto) 95.5 % Lymph % (Auto) 2.2 % Edmonson % (Auto) 1.5 % Eos % (Auto) 0.1 % Baso % (Auto) 0.0 % Neut # (Auto) 16.24 H (1.4-6.5) K/uL Lymph # (Auto) 0.37 L (1.2-3.4) K/uL Edmonson # (Auto) 0.25 (0.11-0.59) K/uL Eos # (Auto) 0.01 (0-0.5) K/uL Baso # (Auto) 0.00 (0-0.2) K/uL Immature Gran # (Auto) 0.12 H (0.00-0.02) K/uL Toxic Granulation 1+ Sodium 138 (136-145) mmol/L Potassium 3.6 (3.5-5.1) mmol/L Chloride 103 (98-107) mmol/L Carbon Dioxide 34 H (21-32) mmol/L Anion Gap 1.0 L (3-11) BUN 22 H (7-18) mg/dl Creatinine 0.63 (0.6-1.4) mg/dl Est Cr Clr Drug Dosing 78.4 ml/min Est GFR ( Amer) 107.9 ml/min Est GFR (Non-Af Amer) 93.1 ml/min BUN/Creatinine Ratio 34.6 H (10-20) Glucose 109 H (70-99) mg/dl POC Glucose 116 H (70-99) mg/dl Calcium 8.6 (8.5-10.1) mg/dl Magnesium 2.1 (1.8-2.4) mg/dl Total Bilirubin 0.4 (0.2-1) mg/dl AST 14 L (15-37) U/L ALT 19 (12-78) U/L Alkaline Phosphatase 116 (45-117) U/L Total Protein 6.7 (6.4-8.2) gm/dl Albumin 2.7 L (3.4-5.0) gm/dl Globulin 4.0 (2.5-4.0) gm/dl Albumin/Globulin Ratio 0.7 L (0.9-2) Urine Legionella Ag 02/01/21 02/01/21 02/01/21 Range/Units 08:06 04:35 00:19 WBC (4.8-10.8) K/uL RBC (4.7-6.1) M/uL Hgb (14.0-18.0) g/dL Hct (42-52) % MCV (80-100) fL MCH (25-34) pg MCHC (32-36) g/dL RDW Std Deviation (36.4-46.3) fL RDW Coeff of Renee (11.5-14.5) % Plt Count (130-400) K/uL MPV (7.4-10.4) fL Immature Gran % (Auto) % Neut % (Auto) % Lymph % (Auto) % Edmonson % (Auto) % Eos % (Auto) % Baso % (Auto) % Neut # (Auto) (1.4-6.5) K/uL Lymph # (Auto) (1.2-3.4) K/uL Edmonson # (Auto) (0.11-0.59) K/uL Eos # (Auto) (0-0.5) K/uL Baso # (Auto) (0-0.2) K/uL Immature Gran # (Auto) (0.00-0.02) K/uL Toxic Granulation Sodium (136-145) mmol/L Potassium (3.5-5.1) mmol/L Chloride (98-107) mmol/L Carbon Dioxide (21-32) mmol/L Anion Gap (3-11) BUN (7-18) mg/dl Creatinine (0.6-1.4) mg/dl Est Cr Clr Drug Dosing ml/min Est GFR ( Amer) ml/min Est GFR (Non-Af Amer) ml/min BUN/Creatinine Ratio (10-20) Glucose (70-99) mg/dl POC Glucose 118 H 135 H 147 H (70-99) mg/dl Calcium (8.5-10.1) mg/dl Magnesium (1.8-2.4) mg/dl Total Bilirubin (0.2-1) mg/dl AST (15-37) U/L ALT (12-78) U/L Alkaline Phosphatase (45-117) U/L Total Protein (6.4-8.2) gm/dl Albumin (3.4-5.0) gm/dl Globulin (2.5-4.0) gm/dl Albumin/Globulin Ratio (0.9-2) Urine Legionella Ag 01/31/21 01/31/21 01/29/21 Range/Units 20:25 16:19 18:00 WBC (4.8-10.8) K/uL RBC (4.7-6.1) M/uL Hgb (14.0-18.0) g/dL Hct (42-52) % MCV (80-100) fL MCH (25-34) pg MCHC (32-36) g/dL RDW Std Deviation (36.4-46.3) fL RDW Coeff of Renee (11.5-14.5) % Plt Count (130-400) K/uL MPV (7.4-10.4) fL Immature Gran % (Auto) % Neut % (Auto) % Lymph % (Auto) % Edmonson % (Auto) % Eos % (Auto) % Baso % (Auto) % Neut # (Auto) (1.4-6.5) K/uL Lymph # (Auto) (1.2-3.4) K/uL Ed[place]on # (Auto) (0.11-0.59) K/uL Eos # (Auto) (0-0.5) K/uL Baso # (Auto) (0-0.2) K/uL Immature Gran # (Auto) (0.00-0.02) K/uL Toxic Granulation Sodium (136-145) mmol/L Potassium (3.5-5.1) mmol/L Chloride (98-107) mmol/L Carbon Dioxide (21-32) mmol/L Anion Gap (3-11) BUN (7-18) mg/dl Creatinine (0.6-1.4) mg/dl Est Cr Clr Drug Dosing ml/min Est GFR ( Amer) ml/min Est GFR (Non-Af Amer) ml/min BUN/Creatinine Ratio (10-20) Glucose (70-99) mg/dl POC Glucose 154 H 143 H (70-99) mg/dl Calcium (8.5-10.1) mg/dl Magnesium (1.8-2.4) mg/dl Total Bilirubin (0.2-1) mg/dl AST (15-37) U/L ALT (12-78) U/L Alkaline Phosphatase (45-117) U/L Total Protein (6.4-8.2) gm/dl Albumin (3.4-5.0) gm/dl Globulin (2.5-4.0) gm/dl Albumin/Globulin Ratio (0.9-2) Urine Legionella Ag SEE NOTE PG Care Time/CCT Total # of Minutes Spent Total Time Spent with Patient: Total time spent is greater than 50% in coordination of care (as documented) at patient's floor/unit and/or counseling patient: Coding Level of Care Code 98962 Subseq Hosp Care Lvl 3 Diagnoses Pneumonia J18.9 Laterality: bilateral Lung location: lower lobe of lung Pneumonia type: due to unspecified organism Pulmonary fibrosis, unspecified J84.10 CAD (coronary artery disease) I25.10 Cachexia R64 Hypoxia R09.02 GERD (gastroesophageal reflux disease) K21.9 Restrictive lung disease J98.4 S/P AVR (aortic valve replacement) Z95.2 Dyslipidemia E78.5 Anemia D64.9 Multiple myeloma C90.00 Hyperglycemia R73.9 Paroxysmal atrial fibrillation I48.0 Thrombocytopenia D69.6 DVT prophylaxis Z29.9 (1) Pneumonia Laterality: bilateral Lung location: lower lobe of lung Pneumonia type: due to unspecified organism Qualified Code(s): J18.9 - Pneumonia, unspecified organism
[2021-02-01] MEDS: ENOXAPARIN INJ 40 MG/0.4 ML SYR SQ SCH (17:07)
[2021-02-01] MEDS: methylPREDNISolone 40 MG in SYRINGE 0 ML IV SCH ×2 (17:09→22:43)
[2021-02-01] MEDS: METOPROLOL SUCC 25MG EXT REL TAB PO SCH (20:56)
[2021-02-01] MEDS: guaiFENesin 600 MG TABCR PO SCH (22:41)
[2021-02-02] MEDS: ALBUT/IPRATROP 3MG/0.5MG NEB 3 ML VIAL NEB SCH ×4 (06:36→19:45)
[2021-02-02 07:10] LABS: Hematocrit (blood only) 32.2 % (42-52); Hemoglobin 10.3 g/dL (14.0-18.0); Mean Corpuscular Hemoglobin 32.6 pg (25-34); Mean Corpuscular Volume 101.9 fL (80-100); Mean Platelet Volume 10.3 fL (7.4-10.4); Platelet Count 100 K/uL (130-400); RDW Coefficient of Variation 14.6 % (11.5-14.5); RDW Standard Deviation 54.9 fL (36.4-46.3); Red Blood Count 3.16 M/uL (4.7-6.1)
[2021-02-02 07:28] LABS: Basophils # (auto) 0.01 K/uL (0-0.2); Basophils % (auto) 0.1 %; Immature Granulocytes # (auto) 0.05 K/uL (0.00-0.02); Immature Granulocytes % (auto) 0.4 %; Lymphocytes # (auto) 0.29 K/uL (1.2-3.4); Lymphocytes % (auto) 2.1 %; Monocytes # (auto) 0.88 K/uL (0.11-0.59); Monocytes % (auto) 6.4 %; Neutrophils # (auto) 12.47 K/uL (1.4-6.5)
[2021-02-02] MEDS: INSULIN ASPART 100 UNITS/ML 3 ML PEN SC SCH ×4 (07:53→20:30)
[2021-02-02] MEDS: INSULIN GLARGINE SOLOSTAR 100 UNITS/ML 3 ML PEN SC SCH ×2 (07:54→20:31)
[2021-02-02 07:56] LABS: BUN Creatinine Ratio 37.7 (10-20); Calcium 8.3 mg/dl (8.5-10.1); Creatinine Clr Calc Pharmacy 87.1 ml/min; Est GFR (African American) 112.4 ml/min; Magnesium 1.9 mg/dl (1.8-2.4); Potassium 4.1 mmol/L (3.5-5.1)
[2021-02-02] MEDS: valACYclovir HCL 500 MG TABLET PO SCH ×2 (08:01→20:28)
[2021-02-02] MEDS: ROSUVASTATIN CALCIUM 10 MG TAB PO SCH (08:01)
[2021-02-02] MEDS: METOPROLOL SUCC 25MG EXT REL TAB PO SCH ×2 (08:02→20:29)
[2021-02-02] MEDS: methylPREDNISolone 40 MG in SYRINGE 0 ML IV SCH (08:02)
[2021-02-02] MEDS: MIRTAZAPINE TAB 15 MG TAB PO SCH (08:02)
[2021-02-02] MEDS: TAMSULOSIN HCL 0.4 MG CAP PO SCH (08:02)
[2021-02-02] MEDS: PANTOprazole 40 MG TAB PO SCH (08:02)
[2021-02-02] MEDS: AMOXICILLIN/CLAVULANATE 875 MG TAB PO SCH ×2 (08:03→20:28)
[2021-02-02] MEDS: DOXYCYCLINE HYCLATE 100 MG CAP PO SCH ×2 (08:03→20:29)
[2021-02-02] MEDS: guaiFENesin 600 MG TABCR PO SCH ×2 (08:03→20:29)
[2021-02-02] MEDS: ASPIRIN 81 MG ECTAB PO SCH (08:03)
[2021-02-02] MEDS: FLUTICASONE/VILANTEROL 100/25MCG 14 PUFFS/INHALER INH SCH (08:04)
--- NOTE | 2021-02-02 08:58 | Pulmonology Progress Note ---
Date of Service February 02, 2021 Assessment & Plan (1) Acute exacerbation of idiopathic pulmonary fibrosis: (2) Pneumonia: Laterality: bilateral Lung location: lower lobe of lung Pneumonia type: due to unspecified organism Qualified Code(s): J18.9 - Pneumonia, unspecified organism (3) Hypoxia: (4) Cough: (5) GERD (gastroesophageal reflux disease): (6) Exertional shortness of breath: Plan: 80-year-old known patient of mine who I follow in the clinic. Patient has known history of ILD which I think is most likely coming from the immunotherapy which he got for his multiple myeloma CT chest 01/29/2021 personally reviewed: Traction bronchiectasis with honeycombing again appreciated bilaterally especially on the right side Groundglass opacities are appreciated bilaterally, there is also some consolidative process in the periphery No mediastinal lymphadenopathy --Acute on chronic hypoxic respiratory failure On 3 L oxygen at home Multifactorial Worsening of underlying ILD with acute exacerbation in the differential Would like to continue with broad-spectrum antibiotics as well while the patient is getting steroids Patient has not been on steroids at home, the possibility of PJP is low. Fungitell has been ordered. Patient is on Zosyn it could be falsely positive. But if it is negative it would rule out PJP COVID-19 NAAT negative 01/29/2021 Procalcitonin 0.26, influenza A and B negative BNP 1820 Continue with incentive spirometry and flutter valve Continue with O2 supplementation to keep oxygen saturation 88-92% --Multiple myeloma in relapse On chemotherapy Follows up at [facility] --DNR/DNI Overall prognosis is guarded. Plan: Go down on Solu-Medrol to 40 mg daily. Following that and will give prednisone 40 mg for 5 days followed by 30 mg for 5 days followed by 20 mg for 5 days followed by 10 mg for 5 days and then stop. Would recommend patient to be started on Bactrim prophylactic Ittakc-Ukmgegdwk-Slcbhe prior to discharge and to be continued till the patient is on prednisone. Increase guaifenesin to 1200 mg twice daily Continue with antibiotics for total of 10 days. Continue with incentive spirometry and flutter valve Would recommend patient to go to rehab as I think patient will benefit going to a rehab rather than going home directly. Please note the above document was generated using voice recognition software. It may contain grammatical, syntax or spelling errors.Any formal questions or concerns about the content, text or information contained within the body of this dictation should be directly addressed to the provider for clarification. Admission and Anticipated Discharge Date Admission Date: January 29, 2021 Subjective Patient seen and examined at bedside. No acute distress, no adverse events overnight. Overall patient is feeling much better. He says his breathing is improved. His appetite is much better compared to last couple of months. Denies any nausea or vomiting. He is coughing bringing up some clear phlegm. Denies any chest congestion or chest pain. Review of Systems Review of Systems: All systems reviewed & are unremarkable except as noted in Subjective Physical Exam Physical Exam: Constitutional: No acute distress, frail-appearing HEENT: EOMI, PERRLA Respiratory system: Decreased air entry bilaterally, no wheeze, no rhonchi, positive Velcro crackles bilateral lower lobes CVS: S1-S2 positive, no murmurs or gallops Abdomen: Soft, nontender, nondistended, positive bowel sounds x4 Extremities: +2 pulses bilaterally radialis/ dorsalis pedis, no cyanosis, no edema Neuro: Awake alert oriented x3 Psych: Normal mood and affect G/U: No [place] Skin: no rashes, warm and dry Lymphatic: no cervical or axillary lymphadenopathy Results & Data Results & [facility] ([facility]) Vital Signs (Past 12 Hours) Vital Signs Temp Pulse Pulse Resp BP Pulse Ox 02/02/21 07:06 36.5 C 92 H 19 113/72 98 02/02/21 06:36 88 16 99 02/02/21 03:47 36.7 C 93 H 20 131/78 98 02/02/21 00:00 92 H 02/01/21 23:38 36.6 C 87 18 106/66 96 02/02/21 06:50 02/02/21 06:50 PG Care Time/CCT Total # of Minutes Spent Total Time Spent with Patient: Total time spent is greater than 50% in coordination of care (as documented) at patient's floor/unit and/or counseling patient: Coding Level of Care Code 02052 Subseq Hosp Care Lvl 3 Diagnoses Acute exacerbation of idiopathic pulmonary fibrosis J84.112 Pneumonia J18.9 Laterality: bilateral Lung location: lower lobe of lung Pneumonia type: due to unspecified organism Hypoxia R09.02 Cough R05 GERD (gastroesophageal reflux disease) K21.9 Exertional shortness of breath R06.02
[2021-02-02] MEDS ORDERED: guaiFENesin 600 MG TABCR PO ONE (09:15)
--- NOTE | 2021-02-02 12:55 | Pharmacy Report ---
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 02/01 * BSGs well controlled over last 24 hours * 32 units SQ administered over last 24 hrs while tolerating a diet and while receiving Solu-medrol 60mg IV Q 8 hrs * Will continue current insulin orders for time being. * Will need to actively titrate insulin doses down as steroid is tapered. 01/31 * BSGs well controlled over last 24 hrs * High dose IV steroids continue however Solu-medrol dose was decreased from 60mg IV Q 6 hrs to 60mg IV Q 8 hours * Fasting BSG 123 this AM w/ 8 units basal on board * Post-prandial BSG better controlled today using new CR 01/30 * Patient admitted for exacerbation of interstitial pulmonary fibrosis * Auto consult for glycemic control triggered by 2 consecutive BSGs > 140 * Patient is likely experiencing stress-induced / steroid-induced hyperglycemia (receiving Solu-medrol 60mg IV Q 6 hours) * Will initiated Novolog correctional and prandial insulin at this time based upon weight and "moderate" stress level given BSGs remain less than 180 * No basal insulin will be provided unless fasting elevation observed tomorrow PLAN FOR INPATIENT GLYCEMIC CONTROL: * Basal insulin - loosen * Lantus 0/5 units BID * Bolus insulin - loosen * NovoLog per scale ACHS or Q6hrs while NPO * Goal Range: Low 110 mg/dL - High 140 mg/dL * Correction Factor: 30 mg/dL/unit * Nutritional / Prandial insulin per carb ratio of 1 unit per 12 grams CHO consumed DISCHARGE RECOMMENDATIONS: * Patient is experiencing steroid induced hyperglycemia. A1c of 5.6% when assessed this admission. Anti-hyperglycemic meds not likely needed on discharge. If patient is discharged on high dose steroids, periodic BSG checks may be warranted.
[2021-02-02] MEDS: ENOXAPARIN INJ 40 MG/0.4 ML SYR SQ SCH (17:01)
[2021-02-02] MEDS: FAMOTIDINE 20 MG TAB PO SCH (17:03)
--- NOTE | 2021-02-02 19:36 | Hospitalist Progress Note ---
Date of Service February 02, 2021 Assessment & Plan (1) Pneumonia: Plan: 80 y/o M Hx HTN, HLD, GERD, CAD, multiple myeloma, ILD - home 02. Presents with progressive SOB. He has become severely short of breath over the past few days with minimal exertion and has had increasing oxygen requirements. He reports a fever of 100.1 the prior evening. He was markedly hypoxic on arrival to the ER. He has a persistent productive cough recently, which he attributes to GERD. Initial labs were notable for leukocytosis, anemia, protein malnutrition, an elevated dimer and a troponin of .048. A CTA was negative for PE but did demonstrate ILD and BL basilar opacities consistent with PNM. An EKG did not support ischemia. The pt become hypotensive in the ER with a BP of 90/60 which improved with IVF. For pneumonia- the pt was initially placed on Zosyn and Doxy to cover possible aspiration and atypical PNM as well. He was transferred to the ICU on the first night of admission due to worsening hypotension. Also with acute on chronic respiratory failure with hypoxia- Baseline is 3 L nasal cannula continuously at home. He has required 3-4LNC at rest here but was hypoxic to 70s requiring 5L and rest again to recover just with getting OOB to chair on 02/01 Blood pressures improved with crystalloid fluids and he did not require vasopressors. He was then downgraded out of the ICU on 01/30 Had thick mucus and choking event on mucus with hypotension and hypoxia on AM of 01/31 MRSA nasal swab was negative, procalcitonin 0.26 He remains afebrile Covid-19 test negative Leukocytosis improved but remains high due to IV steroids Blood pressures are now improved He is on chronic prednisone for the last month at 20 mg daily and likely has some degree of adrenal insufficiency -Antibiotics changed to Augmentin and doxycycline both p.o. and should continue x 10 day course as per PULM-last day tx is 02/07 -Appreciate pulmonology consultation -Fungitell is pending but may be falsely positive in the setting of Zosyn use -Legionella urine antigen negative, Mycoplasma IgM still pending -Follow blood cultures-no growth to date -Continue bronchodilators and flutter valve -Change IV steroids to 40 mg IV every 12 hours today and then slow taper back to home dose of prednisone 20mg daily (2) Pulmonary fibrosis, unspecified: Plan: Thought to be secondary to his previous immunotherapy Follows with pulmonary -Treatment as above (3) CAD (coronary artery disease): Plan: CAD and elevated trop - trop is likely demand-related as he does not have an EKG or symptoms consistent with acute ischemia. Serial troponin trended downward We will cont ASA, statin and a beta federico to be restarted today With a history of CABG (4) Cachexia: Plan: Improving now with prednisone 20 mg daily for the last month Weight has stabilized Appreciate dietary consultation-have liberalized diet to regular (5) Hypoxia: Plan: Acute on chronic respiratory failure with hypoxia secondary to pneumonia and ILD exacerbation as above Continue steroids Continue supplemental O2 Baseline is 3 L nasal cannula continuously, but has been needing 5L with exertion here (6) GERD (gastroesophageal reflux disease): Plan: Continue PPI (7) Restrictive lung disease: Plan: As above (8) S/P AVR (aortic valve replacement): Plan: History of bioprosthetic aortic valve (9) Dyslipidemia: Plan: Continue statin (10) Anemia: Plan: - macrocytic and worsening - likely anemia of chronic disease but could be secondary to chemotherapy B12 here is normal Follow CBC (11) Multiple myeloma: Plan: Currently receiving bendamustine every 4 weeks-on hold whie recovering from PNA -continue prednisone for appetite stimulation continue Remeron for appetite nd ?mood-change to qhs as has been getting this daily and is causing daytime drowsiness (12) Hyperglycemia: Plan: With hyperglycemia now improving Insulin sliding scale Lantus Hemoglobin A1c in normal limits Secondary to steroids (13) Paroxysmal atrial fibrillation: Plan: 3 min of such on 01/31 and 2 min of Aflutter on 02/02 no need for AC With sinus tach and atrial tach 100-140s -continue metoprolol XL 25mg bid today and titrate back to home dose of 100 if BPs allow continue tele monitoring (14) Thrombocytopenia: Plan: improving,chronic, secondary to antineoplastic therapy (15) DVT prophylaxis: Plan: Lovenox SQ Disposition-continued stay PCU, is severely deconditioned, PT/OT recommending rehab-[employer] awaiting family choice before making referrals Admission and Anticipated Discharge Date Admission Date: January 29, 2021 Subjective Pt feels better today, less SOB. No pain. Moved his bowels, eating. His is going to look at rehabs tomorrow Tele with NSR rates 80-90s, brief 2 min run of atrial flutter in the 140s Review of Systems Review of Systems: All systems reviewed & are unremarkable except as noted in HPI & below Physical Exam Constitutional: + thin; no acute distress Eyes: + anicteric sclerae Neck: trachea midline, no thyromegaly Respiratory: normal respiratory effort; no cough Auscultation: + crackles (At bases bilaterally); no rhonchi and no wheezes Cardiovascular: RRR, no murmur, no edema Chest (Breasts): Chest: + abnormal inspection of chest (Mid sternotomy incisional scar present) Gastrointestinal (Abdomen): normal bowel sounds, soft, nontender, no hepatosplenomegaly Musculoskeletal: Extremities: extremities normal to inspection; no cyanosis and no clubbing Skin: no rashes, warm and dry Neurologic: moves all extremities and awake; no focal motor deficits Psychiatric: A+Ox3, euthymic affect Lymphatic: no lymphedema Results & Data Results & Data ([facility]) Vital Signs (Past 12 Hours) Vital Signs Temp Pulse Pulse Resp BP Pulse Ox 02/02/21 15:56 67 02/02/21 15:26 91 H 16 99 02/02/21 15:13 36.8 C 88 19 108/61 95 02/02/21 11:29 36.6 C 93 H 20 106/60 98 02/02/21 10:52 99 H 19 100 02/02/21 08:00 80 Laboratory Results 02/02/21 02/02/21 02/02/21 Range/Units 16:30 11:29 07:07 WBC (4.8-10.8) K/uL RBC (4.7-6.1) M/uL Hgb (14.0-18.0) g/dL Hct (42-52) % MCV (80-100) fL MCH (25-34) pg MCHC (32-36) g/dL RDW Std Deviation (36.4-46.3) fL RDW Coeff of Renee (11.5-14.5) % Plt Count (130-400) K/uL MPV (7.4-10.4) fL Immature Gran % (Auto) % Neut % (Auto) % Lymph % (Auto) % [place] % (Auto) % Eos % (Auto) % Baso % (Auto) % Neut # (Auto) (1.4-6.5) K/uL Lymph # (Auto) (1.2-3.4) K/uL [place] # (Auto) (0.11-0.59) K/uL Eos # (Auto) (0-0.5) K/uL Baso # (Auto) (0-0.2) K/uL Immature Gran # (Auto) (0.00-0.02) K/uL Sodium (136-145) mmol/L Potassium (3.5-5.1) mmol/L Chloride (98-107) mmol/L Carbon Dioxide (21-32) mmol/L Anion Gap (3-11) BUN (7-18) mg/dl Creatinine (0.6-1.4) mg/dl Est Cr Clr Drug Dosing ml/min Est GFR ( Amer) ml/min Est GFR (Non-Af Amer) ml/min BUN/Creatinine Ratio (10-20) Glucose (70-99) mg/dl POC Glucose 81 107 H 104 H (70-99) mg/dl Calcium (8.5-10.1) mg/dl Magnesium (1.8-2.4) mg/dl 02/02/21 02/02/21 02/01/21 Range/Units 06:50 06:50 20:45 WBC 13.70 H (4.8-10.8) K/uL RBC 3.16 L (4.7-6.1) M/uL Hgb 10.3 L (14.0-18.0) g/dL Hct 32.2 L (42-52) % MCV 101.9 H (80-100) fL MCH 32.6 (25-34) pg MCHC 32.0 (32-36) g/dL RDW Std Deviation 54.9 H (36.4-46.3) fL RDW Coeff of Renee 14.6 H (11.5-14.5) % Plt Count 100 L (130-400) K/uL MPV 10.3 (7.4-10.4) fL Immature Gran % (Auto) 0.4 % Neut % (Auto) 91.0 % Lymph % (Auto) 2.1 % [place] % (Auto) 6.4 % Eos % (Auto) 0.0 % Baso % (Auto) 0.1 % Neut # (Auto) 12.47 H (1.4-6.5) K/uL Lymph # (Auto) 0.29 L (1.2-3.4) K/uL [place] # (Auto) 0.88 H (0.11-0.59) K/uL Eos # (Auto) 0.00 (0-0.5) K/uL Baso # (Auto) 0.01 (0-0.2) K/uL Immature Gran # (Auto) 0.05 H (0.00-0.02) K/uL Sodium 140 (136-145) mmol/L Potassium 4.1 (3.5-5.1) mmol/L Chloride 104 (98-107) mmol/L Carbon Dioxide 34 H (21-32) mmol/L Anion Gap 2.0 L (3-11) BUN 21 H (7-18) mg/dl Creatinine 0.57 L (0.6-1.4) mg/dl Est Cr Clr Drug Dosing 87.1 ml/min Est GFR ( Amer) 112.4 ml/min Est GFR (Non-Af Amer) 97.0 ml/min BUN/Creatinine Ratio 37.7 H (10-20) Glucose 95 (70-99) mg/dl POC Glucose 138 H (70-99) mg/dl Calcium 8.3 L (8.5-10.1) mg/dl Magnesium 1.9 (1.8-2.4) mg/dl PG Care Time/CCT Total # of Minutes Spent Total Time Spent with Patient: Total time spent is greater than 50% in coordination of care (as documented) at patient's floor/unit and/or counseling patient: Coding Level of Care Code 18444 Subseq Hosp Care Lvl 2 Diagnoses Pneumonia J18.9 Laterality: bilateral Lung location: lower lobe of lung Pneumonia type: due to unspecified organism Pulmonary fibrosis, unspecified J84.10 CAD (coronary artery disease) I25.10 Cachexia R64 Hypoxia R09.02 GERD (gastroesophageal reflux disease) K21.9 Restrictive lung disease J98.4 S/P AVR (aortic valve replacement) Z95.2 Dyslipidemia E78.5 Anemia D64.9 Multiple myeloma C90.00 Hyperglycemia R73.9 Paroxysmal atrial fibrillation I48.0 Thrombocytopenia D69.6 DVT prophylaxis Z29.9 (1) Pneumonia Laterality: bilateral Lung location: lower lobe of lung Pneumonia type: due to unspecified organism Qualified Code(s): J18.9 - Pneumonia, unspecified organism
[2021-02-02 20:36] LABS: Fungitell (1-3)-B-D-Glucan 142 pg/mL; Mycoplasma pneumoniae Ab, IgM 14 U/mL (<770)
[2021-02-03 07:13] LABS: BUN Creatinine Ratio 33.7 (10-20); Calcium 8.7 mg/dl (8.5-10.1); Creatinine Clr Calc Pharmacy 80.2 ml/min; Est GFR (African American) 109.3 ml/min; Est GFR (Non-African American) 94.3 ml/min; Magnesium 1.8 mg/dl (1.8-2.4); Potassium 3.6 mmol/L (3.5-5.1)
[2021-02-03] MEDS: ALBUT/IPRATROP 3MG/0.5MG NEB 3 ML VIAL NEB SCH ×4 (07:35→19:18)
[2021-02-03] MEDS: ROSUVASTATIN CALCIUM 10 MG TAB PO SCH (07:59)
[2021-02-03] MEDS: DOXYCYCLINE HYCLATE 100 MG CAP PO SCH ×2 (07:59→20:42)
[2021-02-03] MEDS: guaiFENesin 600 MG TABCR PO SCH ×2 (08:00→20:44)
[2021-02-03] MEDS: valACYclovir HCL 500 MG TABLET PO SCH ×2 (08:00→20:43)
[2021-02-03] MEDS: TAMSULOSIN HCL 0.4 MG CAP PO SCH (08:00)
[2021-02-03] MEDS: AMOXICILLIN/CLAVULANATE 875 MG TAB PO SCH ×2 (08:00→20:42)
[2021-02-03] MEDS: PANTOprazole 40 MG TAB PO SCH (08:01)
[2021-02-03] MEDS: METOPROLOL SUCC 25MG EXT REL TAB PO SCH ×2 (08:01→20:52)
[2021-02-03] MEDS: FLUTICASONE/VILANTEROL 100/25MCG 14 PUFFS/INHALER INH SCH (08:01)
[2021-02-03] MEDS: ASPIRIN 81 MG ECTAB PO SCH (08:01)
[2021-02-03] MEDS: INSULIN GLARGINE SOLOSTAR 100 UNITS/ML 3 ML PEN SC SCH ×2 (08:03→20:47)
[2021-02-03] MEDS: INSULIN ASPART 100 UNITS/ML 3 ML PEN SC SCH ×4 (08:04→20:46)
[2021-02-03] MEDS ORDERED: MAGNESIUM SULFATE / D5W 1 GM/100 ML BAG IV ONE (08:08)
[2021-02-03] MEDS ORDERED: POTASSIUM CHLORIDE CRTAB 20 MEQ TABCR PO STA (08:08)
[2021-02-03] MEDS ORDERED: methylPREDNISolone 40 MG in SYRINGE 0 ML IV SCH (09:00)
--- NOTE | 2021-02-03 10:39 | Pulmonology Progress Note ---
Date of Service February 03, 2021 Assessment & Plan (1) Acute exacerbation of idiopathic pulmonary fibrosis: (2) Pneumonia: Laterality: bilateral Lung location: lower lobe of lung Pneumonia type: due to unspecified organism Qualified Code(s): J18.9 - Pneumonia, unspecified organism (3) Hypoxia: (4) Cough: (5) GERD (gastroesophageal reflux disease): (6) Exertional shortness of breath: Plan: 80-year-old known patient of mine who I follow in the clinic. Patient has known history of ILD which I think is most likely coming from the immunotherapy which he got for his multiple myeloma CT chest 01/29/2021 personally reviewed: Traction bronchiectasis with honeycombing again appreciated bilaterally especially on the right side Groundglass opacities are appreciated bilaterally, there is also some consolidative process in the periphery No mediastinal lymphadenopathy --Acute on chronic hypoxic respiratory failure On 3 L oxygen at home Multifactorial Worsening of underlying ILD with acute exacerbation in the differential Would like to continue with broad-spectrum antibiotics as well while the patient is getting steroids Patient has not been on steroids at home, the possibility of PJP is low. Beta D glucan came back positive, patient was on Zosyn even prior to it being o rdered. This is most likely because of the COVID-19 NAAT negative 01/29/2021 Procalcitonin 0.26, influenza A and B negative BNP 1820 Continue with incentive spirometry and flutter valve Continue with O2 supplementation to keep oxygen saturation 88-92% --Multiple myeloma in relapse On chemotherapy Follows up at [facility] --DNR/DNI Overall prognosis is guarded. Plan: Starting tomorrow prednisone 40 mg for 7 days followed by 30 mg for 7 days followed by 20 mg for 7 days followed by 10 mg for 7 days and then stop. Start patient oon Bactrim prophylactic Nmjwyk-Glzouvuvd-Seplod prior to discharge and to be continued till the patient is on prednisone. Repeat chest x-ray in the morning Continue with antibiotics for total of 10 days. Continue with incentive spirometry and flutter valve Patient will benefit from rehab. Please note the above document was generated using voice recognition software. It may contain grammatical, syntax or spelling errors.Any formal questions or concerns about the content, text or information contained within the body of this dictation should be directly addressed to the provider for clarification. Admission and Anticipated Discharge Date Admission Date: January 29, 2021 Subjective Patient seen and examined at bedside. No acute distress, no adverse events overnight. Patient has been using flutter valve he is bringing up clear phlegm. Shortness of breath is improved. He does complain of significant shortness of breath on exertion. Denies any chest pain, no headache. Appetite has fairly improved after coming to the hospital. Review of Systems Review of Systems: All systems reviewed & are unremarkable except as noted in Subjective Physical Exam Physical Exam: Constitutional: No acute distress, frail-appearing HEENT: EOMI, PERRLA Respiratory system: Decreased air entry bilaterally, no wheeze, no rhonchi, positive Velcro crackles bilateral lower lobes more on the right side CVS: S1-S2 positive, no murmurs or gallops Abdomen: Soft, nontender, nondistended, positive bowel sounds x4 Extremities: +2 pulses bilaterally radialis/ dorsalis pedis, no cyanosis, no edema Neuro: Awake alert oriented x3 Psych: Normal mood and affect G/U: No [place] Skin: no rashes, warm and dry Lymphatic: no cervical or axillary lymphadenopathy Results & Data Results & Data ([facility]) Vital Signs (Past 12 Hours) Vital Signs Temp Pulse Pulse Pulse Resp BP Pulse Ox 02/03/21 08:00 100 H 02/03/21 07:43 109 H 18 90 02/03/21 07:29 36.6 C 105 H 23 125/83 93 02/03/21 04:09 36.5 C 98 H 18 140/81 94 02/03/21 00:00 79 02/02/21 23:41 36.9 C 92 H 16 117/75 95 02/02/21 06:50 02/03/21 06:29 PG Care Time/CCT Total # of Minutes Spent Total Time Spent with Patient: Total time spent is greater than 50% in coordination of care (as documented) at patient's floor/unit and/or counseling patient: Coding Level of Care Code 62811 Subseq Hosp Care Lvl 3 Diagnoses Acute exacerbation of idiopathic pulmonary fibrosis J84.112 Pneumonia J18.9 Laterality: bilateral Lung location: lower lobe of lung Pneumonia type: due to unspecified organism Hypoxia R09.02 Cough R05 GERD (gastroesophageal reflux disease) K21.9 Exertional shortness of breath R06.02
--- NOTE | 2021-02-03 13:17 | Pharmacy Report ---
Pharmacy Glycemic Short Note 2 - Date of Service February 03, 2021 - Glycemic Short BSG Results (Last 24 hours): 02/02/21 02/02/21 02/03/21 16:30 20:25 06:29 Glucose 90 POC Glucose 81 107 H 02/03/21 02/03/21 07:25 11:23 Glucose POC Glucose 94 109 H OUTPATIENT ANTIDIABETIC REGIMEN: * N/A; takes Prednisone 20mg daily [employer] * A1c = 5.6% 01/19/21 ASSESSMENT: 02/03 * BSGs well controlled; 81-107 mg/dL * Fasting 94 mg/dL this morning with 5 units of basal, Will adjust to 0/5 lantus scale BID for now, patient being reduced to prednisone 40 mg daily starting tomorrow * Loosened carb ratio this morning, received SM 40 mg IV this morning, may be able to remove if patient BSGs remain stable starting prednisone 02/02 * BSGs well controlled over past 24 hrs; 116-138 mg/dL * 32 units of insulin over the past 24 hours, solu medrol has been tapered down to 40 mg IV daily * Adjusted basal scale to 0/5 units for PM, patient received 5 units this AM * Slightly loosened carb parameters, BSGs in low 100s today. 02/01 * BSGs well controlled over last 24 hours * 32 units SQ administered over last 24 hrs while tolerating a diet and while receiving Solu-medrol 60mg IV Q 8 hrs * Will continue current insulin orders for time being. * Will need to actively titrate insulin doses down as steroid is tapered. 01/31 * BSGs well controlled over last 24 hrs * High dose IV steroids continue however Solu-medrol dose was decreased from 60mg IV Q 6 hrs to 60mg IV Q 8 hours * Fasting BSG 123 this AM w/ 8 units basal on board * Post-prandial BSG better controlled today using new CR 01/30 * Patient admitted for exacerbation of interstitial pulmonary fibrosis * Auto consult for glycemic control triggered by 2 consecutive BSGs > 140 * Patient is likely experiencing stress-induced / steroid-induced hyperglycemia (receiving Solu-medrol 60mg IV Q 6 hours) * Will initiated Novolog correctional and prandial insulin at this time based upon weight and "moderate" stress level given BSGs remain less than 180 * No basal insulin will be provided unless fasting elevation observed tomorrow PLAN FOR INPATIENT GLYCEMIC CONTROL: * Basal insulin - loosen * Lantus 0/5 units BID * Bolus insulin - loosen * NovoLog per scale ACHS or Q6hrs while NPO * Goal Range: Low 110 mg/dL - High 140 mg/dL * Correction Factor: 30 mg/dL/unit * Nutritional / Prandial insulin per carb ratio of 1 unit per 15 grams CHO consumed DISCHARGE RECOMMENDATIONS: * Patient is experiencing steroid induced hyperglycemia. A1c of 5.6% when assessed this admission. Anti-hyperglycemic meds not likely needed on discharge. If patient is discharged on high dose steroids, periodic BSG checks may be warranted.
[2021-02-03] MEDS: FAMOTIDINE 20 MG TAB PO SCH (16:57)
[2021-02-03] MEDS: ENOXAPARIN INJ 40 MG/0.4 ML SYR SQ SCH (16:59)
[2021-02-03] MEDS ORDERED: MIRTAZAPINE TAB 15 MG TAB PO SCH (21:00)
--- NOTE | 2021-02-03 22:50 | Hospitalist Progress Note ---
Date of Service February 03, 2021 Assessment & Plan (1) Pneumonia: Plan: 80 y/o M Hx HTN, HLD, GERD, CAD, multiple myeloma, ILD - home 02. Presents with progressive SOB. He has become severely short of breath over the past few days prior to admission with minimal exertion and has had increasing oxygen requirements. He reports a fever of 100.1 the prior evening. He was markedly hypoxic on arrival to the ER. He has a persistent productive cough recently, which he attributes to GERD. Initial labs were notable for leukocytosis, anemia, protein malnutrition, an elevated dimer and a troponin of .048. A CTA was negative for PE but did demonstrate ILD and BL basilar opacities consistent with PNM. An EKG did not support ischemia. The pt become hypotensive in the ER with a BP of 90/60 which improved with IVF. For pneumonia- the pt was initially placed on Zosyn and Doxy to cover possible aspiration and atypical PNM as well. He was transferred to the ICU on the first night of admission due to worsening hypotension. Also with acute on chronic respiratory failure with hypoxia- Baseline is 3 L nasal cannula continuously at home. He has required 3-4LNC at rest here but was hypoxic to 70s requiring 5L and rest again to recover just with getting OOB to chair on 02/01 Blood pressures improved with crystalloid fluids and he did not require vasopressors. He was then downgraded out of the ICU on 01/30 Had thick mucus and choking event on mucus with hypotension and hypoxia on AM of 01/31 MRSA nasal swab was negative, procalcitonin 0.26 He remains afebrile and clinically improving Covid-19 test negative Leukocytosis secondary to steroid use Blood pressures are now improved but remain borderline low at times-he is back on metoprolol but at a lower dose than home dose He is on chronic prednisone for the last month at 20 mg daily and likely has some degree of adrenal insufficiency -Continue Augmentin and doxycycline x 10 day course as per PULM-last day tx is 02/07 -Appreciate pulmonology consultation -Fungitell is positive but is likely falsely positive in the setting of previous Zosyn use as per pulmonology -Legionella urine antigen negative, Mycoplasma IgM negative -Follow blood cultures-no growth to date -Continue bronchodilators and flutter valve, Mucinex -Change IV steroids to prednisone 40 mg daily for tomorrow and then slow taper down by 10 mg every 7 days. Of note, he was started on prednisone 20 mg once daily 1 month prior to admission for appetite stimulant by oncology -Start Bactrim DS for PCP prophylaxis on Saturday prior to discharge and continue while on high-dose prednisone -Follow chest x-ray in the morning (2) Pulmonary fibrosis, unspecified: Plan: Thought to be secondary to his previous immunotherapy Follows with pulmonary -Treatment as above (3) CAD (coronary artery disease): Plan: CAD and elevated trop - trop is likely demand-related as he does not have an EK G or symptoms consistent with acute ischemia. Serial troponin trended downward -cont ASA, statin and beta fedeirco With a history of CABG (4) Cachexia: Plan: Improving now with prednisone 20 mg daily for the last month Weight has stabilized Appreciate dietary consultation-have liberalized diet to regular (5) Hypoxia: Plan: Acute on chronic respiratory failure with hypoxia secondary to pneumonia and ILD exacerbation as above Continue steroids Continue supplemental O2 Baseline is 3 L nasal cannula continuously, but has been needing 5L with exertion here (6) GERD (gastroesophageal reflux disease): Plan: Continue PPI and Pepcid (7) Restrictive lung disease: Plan: As above (8) S/P AVR (aortic valve replacement): Plan: History of bioprosthetic aortic valve (9) Dyslipidemia: Plan: Continue statin (10) Anemia: Plan: - macrocytic - likely anemia of chronic disease, secondary to multiple myeloma, but could be secondary to chemotherapy B12 here is normal No need for further CBCs-hemoglobin remained stable (11) Multiple myeloma: Plan: Currently receiving bendamustine every 4 weeks-on hold whie recovering from PNA -continue prednisone for appetite stimulation continue Remeron for appetite stimulation and mood Continue Valtrex for prophylaxis (12) Hyperglycemia: Plan: With hyperglycemia now improving Insulin sliding scale Lantus Hemoglobin A1c in normal limits Secondary to steroids Pharmacy is consulted (13) Paroxysmal atrial fibrillation: Plan: 3 min of such on 01/31 and 2 min of Aflutter on 02/02 no need for AC With sinus tach and atrial tach 100-140s now improved with increasing dose of metoprolol -continue metoprolol XL 25mg bid and titrate back to home dose of 100 if BPs allow-blood pressures are borderline low at this time continue tele monitoring Gave 1 g of IV magnesium and 40 mEq of p.o. 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 He did get out of bed with occupational therapy for a little bit, but refused physical therapy due to fatigue. He still appears very frail but reports that he is feeling less short of breath. He had a small amount of a bowel movement today and is making urine. He is eating. Telemetry with normal sinus rhythm with rates in the 80s to 90s Review of Systems Review of Systems: All systems reviewed & are unremarkable except as noted in HPI & below Physical Exam Constitutional: + thin; no acute distress Eyes: + anicteric sclerae ENMT: external ear and nose normal, oropharynx normal Neck: trachea midline, no thyromegaly Respiratory: normal respiratory effort; no cough Auscultation: + crackles (At bases bilaterally); no rhonchi and no wheezes Cardiovascular: RRR, no murmur, no edema Chest (Breasts): Chest: + abnormal inspection of chest (Mid sternotomy incisional scar present) Gastrointestinal (Abdomen): normal bowel sounds, soft, nontender, no hepatosplenomegaly Musculoskeletal: Extremities: extremities normal to inspection; no cyanosis and no clubbing Skin: no rashes, warm and dry Neurologic: moves all extremities and awake; no focal motor deficits Psychiatric: Orientation: alert, oriented to person, oriented to place and cooperative Lymphatic: no lymphedema Results & Data Results & Data ([facility]) Vital Signs (Past 12 Hours) Vital Signs Temp Pulse Pulse Resp BP BP Pulse Ox 02/03/21 20:51 99 H 92/59 L 02/03/21 19:46 36.7 C 104 H 16 107/62 97 02/03/21 19:19 100 H 18 99 02/03/21 17:52 110/57 L 02/03/21 15:36 36.4 C L 97 H 18 87/57 L 97 02/03/21 15:33 100 H 18 99 02/03/21 11:25 36.4 C L 104 H 22 95/65 L 97 Laboratory Results 02/03/21 02/03/21 02/03/21 Range/Units 20:19 16:12 11:23 Sodium (136-145) mmol/L Potassium (3.5-5.1) mmol/L Chloride (98-107) mmol/L Carbon Dioxide (21-32) mmol/L Anion Gap (3-11) BUN (7-18) mg/dl Creatinine (0.6-1.4) mg/dl Est Cr Clr Drug Dosing ml/min Est GFR ( Amer) ml/min Est GFR (Non-Af Amer) ml/min BUN/Creatinine Ratio (10-20) Glucose (70-99) mg/dl POC Glucose 118 H 151 H 109 H (70-99) mg/dl Calcium (8.5-10.1) mg/dl Magnesium (1.8-2.4) mg/dl 02/03/21 02/03/21 Range/Units 07:25 06:29 Sodium 136 (136-145) mmol/L Potassium 3.6 (3.5-5.1) mmol/L Chloride 99 (98-107) mmol/L Carbon Dioxide 36 H (21-32) mmol/L Anion Gap 1.0 L (3-11) BUN 21 H (7-18) mg/dl Creatinine 0.61 (0.6-1.4) mg/dl Est Cr Clr Drug Dosing 80.2 ml/min Est GFR ( Amer) 109.3 ml/min Est GFR (Non-Af Amer) 94.3 ml/min BUN/Creatinine Ratio 33.7 H (10-20) Glucose 90 (70-99) mg/dl POC Glucose 94 (70-99) mg/dl Calcium 8.7 (8.5-10.1) mg/dl Magnesium 1.8 (1.8-2.4) mg/dl PG Care Time/CCT Total # of Minutes Spent Total Time Spent with Patient: Total time spent is greater than 50% in coordination of care (as documented) at patient's floor/unit and/or counseling patient: Coding Level of Care Code 76607 Subseq Hosp Care Lvl 3 Diagnoses Pneumonia J18.9 Laterality: bilateral Lung location: lower lobe of lung Pneumonia type: due to unspecified organism Pulmonary fibrosis, unspecified J84.10 CAD (coronary artery disease) I25.10 Cachexia R64 Hypoxia R09.02 GERD (gastroesophageal reflux disease) K21.9 Restrictive lung disease J98.4 S/P AVR (aortic valve replacement) Z95.2 Dyslipidemia E78.5 Anemia D64.9 Multiple myeloma C90.00 Hyperglycemia R73.9 Paroxysmal atrial fibrillation I48.0 Thrombocytopenia D69.6 DVT prophylaxis Z29.9 (1) Pneumonia Laterality: bilateral Lung location: lower lobe of lung Pneumonia type: due to unspecified organism Qualified Code(s): J18.9 - Pneumonia, unspecified organism
[2021-02-04] MEDS: METOPROLOL SUCC 25MG EXT REL TAB PO SCH ×2 (04:22→08:13)
[2021-02-04] MEDS: ALBUT/IPRATROP 3MG/0.5MG NEB 3 ML VIAL NEB SCH ×3 (07:08→15:01)
[2021-02-04] MEDS: INSULIN ASPART 100 UNITS/ML 3 ML PEN SC SCH ×2 (08:12→11:56)
--- NOTE | 2021-02-04 08:12 | Hospitalist Progress Note ---
Date of Service February 04, 2021 Assessment & Plan (1) Pneumonia: Plan: 80 y/o M Hx HTN, HLD, GERD, CAD, multiple myeloma, ILD - home 02. Presents with progressive SOB. He has become severely short of breath over the past few days prior to admission with minimal exertion and has had increasing oxygen requirements. He reports a fever of 100.1 the prior evening. He was markedly hypoxic on arrival to the ER. He has a persistent productive cough recently, which he attributes to GERD. Initial labs were notable for leukocytosis, anemia, protein malnutrition, an elevated dimer and a troponin of .048. A CTA was negative for PE but did demonstrate ILD and BL basilar opacities consistent with PNM. An EKG did not support ischemia. The pt become hypotensive in the ER with a BP of 90/60 which improved with IVF. For pneumonia- the pt was initially placed on Zosyn and Doxy to cover possible aspiration and atypical PNM as well. He was transferred to the ICU on the first night of admission due to worsening hypotension. Also with acute on chronic respiratory failure with hypoxia- Baseline is 3 L nasal cannula continuously at home. He has required 3-4LNC at rest here but was hypoxic to 70s requiring 5L and rest again to recover just with getting OOB to chair on 02/01 Blood pressures improved with crystalloid fluids and he did not require vasopressors. He was then downgraded out of the ICU on 01/30 Had thick mucus and choking event on mucus with hypotension and hypoxia on AM of 01/31 MRSA nasal swab was negative, procalcitonin 0.26 He remains afebrile and clinically improving Covid-19 test negative Leukocytosis secondary to steroid use Blood pressures are now improved but remain borderline low at times-he is back on metoprolol but at a lower dose than home dose He is on chronic prednisone for the last month at 20 mg daily and likely has some degree of adrenal insufficiency -Continue Augmentin and doxycycline x 10 day course as per PULM-last day tx is 02/07 -Appreciate pulmonology consultation -Fungitell is positive but is likely falsely positive in the setting of previous Zosyn use as per pulmonology -Legionella urine antigen negative, Mycoplasma IgM negative -Follow blood cultures-no growth to date -Continue bronchodilators and flutter valve, Mucinex -Change IV steroids to prednisone 40 mg daily for tomorrow and then slow taper down by 10 mg every 7 days. Of note, he was started on prednisone 20 mg once daily 1 month prior to admission for appetite stimulant by oncology -Start Bactrim DS for PCP prophylaxis on Saturday prior to discharge and continue while on high-dose prednisone -Follow chest x-ray in the morning (2) Pulmonary fibrosis, unspecified: Plan: Thought to be secondary to his previous immunotherapy Follows with pulmonary -Treatment as above (3) CAD (coronary artery disease): Plan: CAD and elevated trop - trop is likely demand-related as he does not have an EK G or symptoms consistent with acute ischemia. Serial troponin trended downward -cont ASA, statin and beta federico With a history of CABG (4) Cachexia: Plan: Improving now with prednisone 20 mg daily for the last month Weight has stabilized Appreciate dietary consultation-have liberalized diet to regular (5) Hypoxia: Plan: Acute on chronic respiratory failure with hypoxia secondary to pneumonia and ILD exacerbation as above Continue steroids Continue supplemental O2 Baseline is 3 L nasal cannula continuously, but has been needing 5L with exertion here (6) GERD (gastroesophageal reflux disease): Plan: Continue PPI and Pepcid (7) Restrictive lung disease: Plan: As above (8) S/P AVR (aortic valve replacement): Plan: History of bioprosthetic aortic valve (9) Dyslipidemia: Plan: Continue statin (10) Anemia: Plan: - macrocytic - likely anemia of chronic disease, secondary to multiple myeloma, but could be secondary to chemotherapy B12 here is normal No need for further CBCs-hemoglobin remained stable (11) Multiple myeloma: Plan: Currently receiving bendamustine every 4 weeks-on hold whie recovering from PNA -continue prednisone for appetite stimulation continue Remeron for appetite stimulation and mood Continue Valtrex for prophylaxis (12) Hyperglycemia: Plan: With hyperglycemia now improving Insulin sliding scale Lantus Hemoglobin A1c in normal limits Secondary to steroids Pharmacy is consulted (13) Paroxysmal atrial fibrillation: Plan: 3 min of such on 01/31 and 2 min of Aflutter on 02/02 no need for AC With sinus tach and atrial tach 100-140s now improved with increasing dose of metoprolol -continue metoprolol XL 25mg bid and titrate back to home dose of 100 if BPs allow-blood pressures are borderline low at this time continue tele monitoring Gave 1 g of IV magnesium and 40 mEq of p.o. potassium chloride this morning (14) Thrombocytopenia: Plan: improving,chronic, secondary to antineoplastic therapy (15) DVT prophylaxis: Plan: Lovenox SQ Disposition-continued stay PCU, is severely deconditioned, PT/OT recommending rehab-Splicing Machine Operator made referrals to rehabs on 02/03, awaiting acceptance Would be ready for discharge to rehab in the next 1 to 2 days Admission and Anticipated Discharge Date Admission Date: January 29, 2021 Subjective More confused today. Sinus tachycardia on monitor. Significnat hypoxia when just moving to bedside. small aount of phlegm eating ok commode. Results & Data Results & Data ([facility]) Vital Signs (Past 12 Hours) Vital Signs Temp Pulse Pulse Pulse Resp BP BP 02/04/21 08:01 37.1 C 107 H 21 115/65 02/04/21 07:09 109 H 20 02/04/21 04:52 107 H 123/75 02/04/21 04:04 37.1 C 150 H 21 121/68 02/04/21 00:27 37.3 C 02/04/21 00:00 108 H 02/03/21 23:38 37.5 C 108 H 20 111/65 02/03/21 20:51 99 H 92/59 L Pulse Ox 02/04/21 08:01 98 02/04/21 07:09 94 02/04/21 04:52 02/04/21 04:04 95 02/04/21 00:27 02/04/21 00:00 02/03/21 23:38 99 02/03/21 20:51 PG Care Time/CCT Total # of Minutes Spent Total Time Spent with Patient: Total time spent is greater than 50% in coordination of care (as documented) at patient's floor/unit and/or counseling patient: Coding Diagnoses Pneumonia J18.9 Laterality: bilateral Lung location: lower lobe of lung Pneumonia type: due to unspecified organism Pulmonary fibrosis, unspecified J84.10 CAD (coronary artery disease) I25.10 Cachexia R64 Hypoxia R09.02 GERD (gastroesophageal reflux disease) K21.9 Restrictive lung disease J98.4 S/P AVR (aortic valve replacement) Z95.2 Dyslipidemia E78.5 Anemia D64.9 Multiple myeloma C90.00 Hyperglycemia R73.9 Paroxysmal atrial fibrillation I48.0 Thrombocytopenia D69.6 DVT prophylaxis Z29.9 (1) Pneumonia Laterality: bilateral Lung location: lower lobe of lung Pneumonia type: due to unspecified organism Qualified Code(s): J18.9 - Pneumonia, unspecified organism
[2021-02-04] MEDS: PANTOprazole 40 MG TAB PO SCH (08:14)
[2021-02-04] MEDS: ROSUVASTATIN CALCIUM 10 MG TAB PO SCH (08:16)
[2021-02-04] MEDS: ASPIRIN 81 MG ECTAB PO SCH (08:16)
[2021-02-04] MEDS: DOXYCYCLINE HYCLATE 100 MG CAP PO SCH (08:17)
[2021-02-04] MEDS: guaiFENesin 600 MG TABCR PO SCH (08:17)
[2021-02-04] MEDS: AMOXICILLIN/CLAVULANATE 875 MG TAB PO SCH (08:17)
[2021-02-04] MEDS: valACYclovir HCL 500 MG TABLET PO SCH (08:18)
[2021-02-04] MEDS: FLUTICASONE/VILANTEROL 100/25MCG 14 PUFFS/INHALER INH SCH (08:18)
[2021-02-04] MEDS: TAMSULOSIN HCL 0.4 MG CAP PO SCH (08:19)
--- NOTE | 2021-02-04 08:23 | Pharmacy Report ---
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 No basal. * Change to prednisone 40 mg daily today. * Fasting BSG was 103 mg/dL. D/c basal insulin * Continue Novolog at this time. 02/03 * BSGs well controlled; 81-107 mg/dL * Fasting 94 mg/dL this morning with 5 units of basal, Will adjust to 0/5 lantus scale BID for now, patient being reduced to prednisone 40 mg daily starting tomorrow * Loosened carb ratio this morning, received SM 40 mg IV this morning, may be able to remove if patient BSGs remain stable starting prednisone 02/02 * BSGs well controlled over past 24 hrs; 116-138 mg/dL * 32 units of insulin over the past 24 hours, solu medrol has been tapered down to 40 mg IV daily * Adjusted basal scale to 0/5 units for PM, patient received 5 units this AM * Slightly loosened carb parameters, BSGs in low 100s today. 02/01 * BSGs well controlled over last 24 hours * 32 units SQ administered over last 24 hrs while tolerating a diet and while receiving Solu-medrol 60mg IV Q 8 hrs * Will continue current insulin orders for time being. * Will need to actively titrate insulin doses down as steroid is tapered. 01/31 * BSGs well controlled over last 24 hrs * High dose IV steroids continue however Solu-medrol dose was decreased from 60mg IV Q 6 hrs to 60mg IV Q 8 hours * Fasting BSG 123 this AM w/ 8 units basal on board * Post-prandial BSG better controlled today using new CR 01/30 * Patient admitted for exacerbation of interstitial pulmonary fibrosis * Auto consult for glycemic control triggered by 2 consecutive BSGs > 140 * Patient is likely experiencing stress-induced / steroid-induced hyperglycemia (receiving Solu-medrol 60mg IV Q 6 hours) * Will initiated Novolog correctional and prandial insulin at this time based upon weight and "moderate" stress level given BSGs remain less than 180 * No basal insulin will be provided unless fasting elevation observed tomorrow PLAN FOR INPATIENT GLYCEMIC CONTROL: * Basal insulin - d/c * Bolus insulin - loosen * NovoLog per scale ACHS or Q6hrs while NPO * Goal Range: Low 110 mg/dL - High 140 mg/dL * Correction Factor: 30 mg/dL/unit * Nutritional / Prandial insulin per carb ratio of 1 unit per 15 grams CHO consumed DISCHARGE RECOMMENDATIONS: * Patient is experiencing steroid induced hyperglycemia. A1c of 5.6% when assessed this admission. Anti-hyperglycemic meds not likely needed on discharge. If patient is discharged on high dose steroids, periodic BSG checks may be warranted.
--- NOTE | 2021-02-04 08:29 | Pulmonology Progress Note ---
Date of Service February 04, 2021 Assessment & Plan (1) Acute exacerbation of idiopathic pulmonary fibrosis: (2) Pneumonia: Laterality: bilateral Lung location: lower lobe of lung Pneumonia type: due to unspecified organism Qualified Code(s): J18.9 - Pneumonia, unspecified organism (3) Hypoxia: (4) Cough: (5) GERD (gastroesophageal reflux disease): (6) Exertional shortness of breath: Plan: 80-year-old known patient of mine who I follow in the clinic. Patient has known history of ILD which I think is most likely coming from the immunotherapy which he got for his multiple myeloma CT chest 01/29/2021 personally reviewed: Traction bronchiectasis with honeycombing again appreciated bilaterally especially on the right side Groundglass opacities are appreciated bilaterally, there is also some consolidative process in the periphery No mediastinal lymphadenopathy --Acute on chronic hypoxic respiratory failure On 3 L oxygen at home Multifactorial Worsening of underlying ILD with acute exacerbation in the differential Would like to continue with broad-spectrum antibiotics as well while the patient is getting steroids Patient has not been on steroids at home, the possibility of PJP is low. Beta D glucan came back positive, patient was on Zosyn even prior to it being o rdered. This is most likely because of the COVID-19 NAAT negative 01/29/2021 Procalcitonin 0.26, influenza A and B negative BNP 1820 Continue with incentive spirometry and flutter valve Continue with O2 supplementation to keep oxygen saturation 88-92% --Multiple myeloma in relapse On chemotherapy Follows up at [facility] --DNR/DNI Overall prognosis is guarded. Plan: Patient seems a little bit depressed today. Tachycardia in the 140s could be from anxiety. He was -1200 in the last 24 hours. I will give him 5% albumin to 50 mL. Would repeat it again if need be Chest x-ray from today does not show any significant change Continue with prednisone 40 mg for 7 days followed by 30 mg for 7 days followed by 20 mg for 7 days followed by 10 mg for 7 days and then stop. Start patient on Bactrim prophylactic [id number] prior to discharge and to be continued till the patient is on prednisone. Continue with antibiotics for total of 10 days. Continue with incentive spirometry and flutter valve I spoke with the patient's on the phone discussing the poor prognosis and the wish of the patient to be home on his porch. I explained to her and the best possible way that the prognosis is very guarded and if patients wish to be home I think that is what should be done. She understand that and is willing to take the patient home. She is unsure about hospice. She wants to speak with palliative care again. I discussed the case with RN as well as Dr. Galdamez Please note the above document was generated using voice recognition software. It may contain grammatical, syntax or spelling errors.Any formal questions or concerns about the content, text or information contained within the body of this dictation should be directly addressed to the provider for clarification. Admission and Anticipated Discharge Date Admission Date: January 29, 2021 Subjective Patient seen and examined at bedside. No acute distress. Overnight as per the nurse patient was little bit confused. At the time of examination patient was saturating 97-98% on 3 L nasal cannula He was a bit tachycardic in the 130s He denies any chest pain, shortness of breath with the same. No nausea or vomiting. He was a bit depressed. He was saying that he is not able to enjoy his life. He would like to be home on his porch. Review of Systems Review of Systems: All systems reviewed & are unremarkable except as noted in Subjective Physical Exam Physical Exam: Constitutional: No acute distress, frail-appearing HEENT: EOMI, PERRLA Respiratory system: Decreased air entry bilaterally, no wheeze, no rhonchi, positive Velcro crackles bilateral lower lobes more on the right side CVS: S1-S2 positive, no murmurs or gallops Abdomen: Soft, nontender, nondistended, positive bowel sounds x4 Extremities: +2 pulses bilaterally radialis/ dorsalis pedis, no cyanosis, no edema Neuro: Awake alert oriented x3 Psych: Normal mood and affect G/U: No [place] Skin: no rashes, warm and dry Lymphatic: no cervical or axillary lymphadenopathy Results & Data Results & Data ([facility]) Vital Signs (Past 12 Hours) Vital Signs Temp Pulse Pulse Pulse Resp BP BP 02/04/21 08:01 37.1 C 107 H 21 115/65 02/04/21 07:09 109 H 20 02/04/21 04:52 107 H 123/75 02/04/21 04:04 37.1 C 150 H 21 121/68 02/04/21 00:27 37.3 C 02/04/21 00:00 108 H 02/03/21 23:38 37.5 C 108 H 20 111/65 02/03/21 20:51 99 H 92/59 L Pulse Ox 02/04/21 08:01 98 02/04/21 07:09 94 02/04/21 04:52 02/04/21 04:04 95 02/04/21 00:27 02/04/21 00:00 02/03/21 23:38 99 02/03/21 20:51 02/02/21 06:50 02/03/21 06:29 PG Care Time/CCT Total # of Minutes Spent Total Time Spent with Patient: Total time spent is greater than 50% in coor dination of care (as documented) at patient's floor/unit and/or counseling patient: Coding Level of Care Code 66790 Subseq Hosp Care Lvl 3 Diagnoses Acute exacerbation of idiopathic pulmonary fibrosis J84.112 Pneumonia J18.9 Laterality: bilateral Lung location: lower lobe of lung Pneumonia type: due to unspecified organism Hypoxia R09.02 Cough R05 GERD (gastroesophageal reflux disease) K21.9 Exertional shortness of breath R06.02
[2021-02-04] MEDS ORDERED: predniSONE 20 MG TAB PO SCH (09:00)
--- NOTE | 2021-02-04 09:14 | XRay Report ---
SINGLE VIEW CHEST CLINICAL HISTORY: Hypoxia. FINDINGS: An AP, portable, upright chest radiograph is compared to study dated 01/31/2021 and correlat ed with chest CT dated 01/29/2021. The patient is status post midline sternotomy. The heart is enlarge d noting atherosclerotic calcification of the thoracic aorta. The pulmonary vasculature is noncongest ed. Changes of chronic interstitial lung disease are similar to previous. There is no clear evidence of superimposed airspace consolidation or large pleural effusion. No pneumothorax is seen. The skelet al structures are osteopenic. There are healed left-sided rib fractures. IMPRESSION: 1. Cardiomegaly without radiographic evidence of congestive failure. 2. Findings of chronic interstitial lung disease are similar to previous. 3. There is no definite evidence of superimposed airspace consolidation or large pleural effusion. ACT 112: Negative or not required by law. Electronically signed by: Warren Islas M.D. 02/04/2021 9:13 AM
[2021-02-04] MEDS ORDERED: ALBUMIN 5% 250 ML IV ONE (09:32)
--- NOTE | 2021-02-05 08:07 | Electrocardiogram Report ---
Test Reason : Blood Pressure : / mmHG Vent. Rate : 147 BPM Atrial Rate : 147 BPM P-R Int : 162 ms QRS Dur : 094 ms QT Int : 280 ms P-R-T Axes : 048 038 260 degrees QTc Int : 438 ms Sinus tachycardia with Fusion complexes ST depression in multiple leads, rate related vs. ischemia Abnormal ECG When compared with ECG of 29-JAN-2021 09:14, HR has increased by [address] depression in multiple leads now present Confirmed by Rommel Morales ([id number]) on 02/05/2021 8:07:06 AM Referred By: REFERRED SELF Confirmed By:Rommel Morales
--- NOTE | 2021-02-07 11:53 | Discharge Summary ---
Date of Service February 04, 2021 Admission HPI Per Admitting Provider 80 y/o M Hx HTN, HLD, GERD, CAD, multiple myeloma, ILD - home 02. Presents with progressive SOB. He has become severely short of breath over the past few days with minimal exertion and has had increasing oxygen requirements. He reports a fever of 100.1 the prior evening. He was markedly hypoxic on arrival to the ER. He has a persistent productive cough recently, which he attributes to GERD. Initial labs were notable for leukocytosis, anemia, protein malnutrition, an elevated dimer and a troponin of .048. A CTA was negative for PE but did demonstrate ILD and BL basilar opacities consistent with PNM. An EKG did not support ischemia. The pt become hypotensive in the ER with a BP of 90/60 which improved with IVF. 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 6) Multiple myelome - currently treated with Bendamustine 7) SVT 8) Macrocytic anemia 9) Aortic stenosis Surgical: 1) AVR - bioprosthesis 2) CABG Social: Does not smoke or drink Family: CAD, HTN Principal Diagnosis Pneumonia Pulmonary fibrosis Discharge Exam Constitutional + frail appearing Respiratory + retractions, + uses accessory muscles and + cough Auscultation: + diminished lung sounds (throughout) Cardiovascular Rate/Rhythm: regular rhythm and + tachycardic Psychiatric A+Ox3, euthymic affect Insight: good insight Discharge Data Allergies Allergy/AdvReac Type Severity Reaction Status Date / Time house dust mite Allergy Verified 01/18/21 14:43 tree and shrub pollen Allergy Verified 01/18/21 14:43 gabapentin AdvReac Unknown Dizziness Verified 01/18/21 14:43 Consultations 01/29/21 11:52 ED Decision to Admit Stat 01/29/21 12:20 ED Decision to Admit Stat 01/29/21 18:26 Consult Power Mule Operator Stat 01/30/21 09:45 Consult Palliative Care Routine 01/31/21 08:37 Consult Pulmonology Routine Ordered Studies 01/29/21 10:25 CT angio chest PE protocol Stat IMPRESSION: 1. No definite filling defect is seen within pulmonary artery and its branches however opacification within main pulmonary artery is suboptimal for adequate evaluation for pulmonary embolus. 2. Redemonstration of pulmonary fibrosis with interval development of consolidative opacities within bilateral lower lobes which might represent pneumonia. 3. Four-chamber cardiomegaly. 4. Atherosclerosis 5. The rest of findings as above. Hospital Course (1) Pneumonia: (2) Pulmonary fibrosis, unspecified: (3) CAD (coronary artery disease): (4) Cachexia: (5) Hypoxia: (6) GERD (gastroesophageal reflux disease): (7) Restrictive lung disease: (8) S/P AVR (aortic valve replacement): (9) Dyslipidemia: (10) Anemia: (11) Multiple myeloma: (12) Hyperglycemia: (13) Paroxysmal atrial fibrillation: (14) Thrombocytopenia: (15) DVT prophylaxis: Richar Chan is an 80 year old male admitted from January 29 to 2020 due to shortness of breath. He was diagnosed with bacterial pneumonia and progression of his pulmonary fibrosis. This was treated with antibiotics and steroids during his inpatient stay and transitioned to a prednisone taper, doxycycline and Augmentin on discharge. Bactrim was started for pneumonia prophylaxis per pulmonology recommendations. On discussion with the patient and his , he declined further physical rehabilitation and wished to be transi tioned to a more symptomatic approach and did not want to be readmitted to hospital therefore elected to go home on hospice care. He is back to his usual 3LPM O2 at rest but remains significantly hypoxic on minimal exertion. Total Time Total Time Spent Total Time Spent (In Minutes): 70 Discharge Plan Discharge Items Patient Disposition: Hospice - Home Reason For Visit: HYPOXIA Discharge Diagnosis: Pneumonia Pulmonary fibrosis Condition on Discharge: Serious Activity: Resume your previous activity Non-emergency contact: Primary Care Provider Call non-emergency contact if: you have any medication questions and your symptoms worsen Follow-up/Referrals: Dustin Mendieta, [Primary Care Provider] - Diet: Carb Consistent or DM2 Addtl Attending Provider Instructions: You were admitted from January 29 to 2020 due to shortness of breath. You were diagnosed with pneumonia and progression of your pulmonary fibrosis. This was treated with antibiotics and steroids during your inpatient stay and transitioned to oral equivalents on discharge. Bactrim was started for pneumonia prophylaxis per pulmonology recommendations. On discussion with you and your , you wished to be transitioned to a more symptomatic approach and did not want to be readmitted to hospital therefore elected to go home on hospice care. This is being arranged by our top case assembler. Pending Studies at Discharge: No Stand-Alone Forms: My [facility], Smoking Cessation Medications and DC Order Prescriptions: New prednisone 10 mg tablet See Rx Instructions .ROUTE .COMPLEX Qty: 70 RF: 0 sulfamethoxazole-trimethoprim [Bactrim DS] 800-160 mg tablet 1 tab PO .MWF Qty: 12 RF: 0 metoprolol succinate 25 mg Tablet Extended Release 24 Hr 25 mg PO BID Qty: 60 RF: 0 Continued rosuvastatin [Crestor] 10 mg tablet 10 mg PO DAILY Qty: 90 RF: 3 valacyclovir [Valtrex] 500 mg tablet 500 mg PO BID RF: 0 bendamustine 25 mg/mL solution See Rx Instructions IV MONTHLY RF: 0 ipratropium bromide 42 mcg (0.06 %) spray,non-aerosol 2 spray intranasal TID Qty: 15 RF: 3 Breo Ellipta 100-25 mcg/dose blister with device 1 inh inhalation DAILY Qty: 28 RF: 5 azelastine 137 mcg (0.1 %) aerosol,spray 2 spray intranasal BID Qty: 30 RF: 3 aspirin 81 mg tablet,delayed release (DR/EC) 81 mg PO DAILY RF: 0 famotidine [Acid Personal Support Worker (famotidine)] 20 mg tablet 20 mg PO DAILY 42 Days Qty: 42 RF: 3 pantoprazole 40 mg tablet,delayed release (DR/EC) 40 mg PO DAILY Qty: 30 RF: 3 tamsulosin [Flomax] 0.4 mg capsule 0.4 mg PO DAILY Qty: 30 RF: 2 terbinafine HCl 250 mg tablet 250 mg PO DAILY Qty: 42 RF: 0 promethazine-DM 6.25-15 mg/5 mL syrup 5 ml PO Q6H PRN (Reason: cough) Qty: 473 RF: 0 mirtazapine [Remeron] 15 mg tablet 15 mg PO DAILY Qty: 30 RF: 2 albuterol sulfate 90 mcg/actuation HFA aerosol inhaler 2 puff inhalation Q6H PRN (Reason: Shortness Of Breath Or Wheezing) Qty: 18 RF: 3 fluticasone furoate-vilanterol [Breo Ellipta] 100-25 mcg/dose blister with device 1 ea inhalation DAILY RF: 0 ipratropium-albuterol 0.5 mg-3 mg(2.5 mg base)/3 mL solution for nebulization 3 ml INH Q6H PRN (Reason: wheezing) Qty: 180 RF: 2 Discontinued metoprolol succinate 100 mg tablet extended release 24 hr 100 mg PO DAILY Qty: 90 RF: 3 prednisone 20 mg tablet 20 mg PO DAILY RF: 0 Discharge Orders: Discharge Order (Routine); Ordered 02/04/21 Ordered By: Marcus Reza/Other Patient Handouts: What Is Hospice?, Starting Hospice, Hospice The Importance of ..., Hospice Dyspnea Care, Pulmonary Fibrosis Admission Data Admit Date/Time: 01/29/21 15:40 Attending Provider: Marcus Galdamez Admit Provider: Josh Sylvester Primary Care Provider: Dustin Mendieta Other Providers: Josh Sylvester ; Andrew Cerna ; Eryn Benavides ; Robel Denson ; [facility] ; [facility] ; Andrew,[facility] Other Interventions: Discharge Summary Assessment (RN) Last Done: 02/04/21 16:49 Coding Level of Care Code D/C DAY MANAGEMENT >30 MINS Diagnoses Pneumonia J18.9 Laterality: bilateral Lung location: lower lobe of lung Pneumonia type: due to unspecified organism Pulmonary fibrosis, unspecified J84.10 CAD (coronary artery disease) I25.10 Cachexia R64 Hypoxia R09.02 GERD (gastroesophageal reflux disease) K21.9 Restrictive lung disease J98.4 S/P AVR (aortic valve replacement) Z95.2 Dyslipidemia E78.5 Anemia D64.9 Multiple myeloma C90.00 Hyperglycemia R73.9 Paroxysmal atrial fibrillation I48.0 Thrombocytopenia D69.6 DVT prophylaxis Z29.9
== END 2021-02-04 17:51 | disposition hospice, home (50) | DRG 193 ==
LOC: ED 09:06 → SUATTDRO 15:40 → 1E 15:40 → 2E 01-31 05:46